=== PATIENT | female | born 1940 | race Caucasian/White ===

== ENCOUNTER 2018-03-30 10:31 | Emergency (ER) | payer MEDICARE, SELFPAY ==
--- NOTE | 2018-03-30 | DI.RAD.S_ITS ---
PROCEDURE: XR SHOULDER LT MIN 2V INDICATIONS: Fell and hurt shoulder. TECHNIQUE: 2 views of the left shoulder were acquired. COMPARISON: None. FINDINGS: Bones: Acute oblique left proximal humeral metaphysis/neck fracture with mild impaction of the fracture fragments and mild lateral angulation of the distal fracture fragment. Mild degenerative changes of the left acromioclavicular joint are noted. Soft tissues: There is a 3 mm calcific fragment superolateral to the left humeral head, which may represent a displaced fracture fragment or joint space calcification. There is soft tissue swelling of the left shoulder. IMPRESSION: Acute oblique left proximal humeral metaphysis/neck fracture. Dictated by: King Ozuna M.D. on 03/30/2018 at 12:12 Approved by: King Ozuna M.D. on 03/30/2018 at 12:15
[2018-03-30 10:35] VITALS: BP 155/88; PULSE 71; RESP 18; TEMP 36.8; O2SAT 95
--- NOTE | 2018-03-30 11:30 | ED.UPPEXIN ---
HPI - Extremity Injury (Upper) General Chief Complaint: Extremity Injury, Upper Stated Complaint: FELL DOWN, BROKE L ARM, SWELLING Time Seen by Provider: 03/30/18 11:28 Source: patient Mode of arrival: ambulatory Limitations: no limitations History of Present Illness HPI narrative: Patient is a 77-year-old female who presents with left arm swelling. She fell about a week ago she has a known fracture. He apparently her doctor sent her here for further evaluation. She has no pain no numbness no tingling she says the swelling has not gotten any worse. complaint: injury to: left Related Data Home Medications Medication Instructions Recorded Confirmed Calcium 1 tab PO DAILY 03/30/18 03/30/18 Vitamin D3 1 cap PO DAILY 03/30/18 03/30/18 antiox.mv [id number] 1 cap PO DAILY 03/30/18 03/30/18 [I-Caps] aspirin 81 mg PO DAILY 03/30/18 03/30/18 lurasidone [Latuda] 80 mg PO QPM 03/30/18 03/30/18 vitamin E 1 cap PO DAILY 03/30/18 03/30/18 Allergies Allergy/AdvReac Type Severity Reaction Status Date / Time Sulfa (Sulfonamide Allergy Unknown Unverified 06/08/17 12:07 Antibiotics) [SULFA (SULFONAMIDE ANTIBIOTICS)] Review of Systems Review of Systems GENERAL: Denies chills,fever HEENT: Denies throat pain RESPIRATORY: Denies dyspnea, cough, wheezing CARDIOVASCULAR: Denies chest pain, palpitations GASTROINTESTINAL: Denies nausea, vomiting MUSCULOSKELETAL: Known left humerus fracture SKIN: No rash, no laceration, no pruritus NEUROLOGIC: Denies weakness, dizziness, headache, numbness 8 point review of systems is negative except for those stated above and HPI PFSH Medical History Schizophrenia (Acute) Social History Smoking Status: Never smoker alcohol intake: never substance use type: does not use Social History Smoking Status: Never smoker alcohol intake: never substance use type: does not use Exam Initial Vital Signs Initial Vital Signs: Vital Signs Temperature 98.3 F 03/30/18 10:35 Pulse Rate 71 03/30/18 10:35 Respiratory Rate 18 03/30/18 10:35 Blood Pressure 155/88 H 03/30/18 10:35 Pulse Oximetry 95 03/30/18 10:35 GENERAL: Well-appearing, well-nourished and in no acute distress. CARDIOVASCULAR: peripheral pulses in tact, cap refill <2 sec RESPIRATORY: No respiratory distress, speaks in full sentences without difficulty EXTREMITIES: Normal range of motion, no clubbing or edema. Neurovascularly intact Left upper extremity: Bruising contusion noted around elbow sensation over her deltoid intact the neurovascularly intact NEUROLOGICAL: Cranial nerves II through XII grossly intact. Normal gait and speech. SKIN: Warm, dry, no petechiae, no rashes or lesions. Course Orders Ordered: ED Orders 03/30/18 11:29 XR humerus LT 2V Stat Vital Signs - 8 hr 03/30/18 10:35 03/30/18 12:34 Temperature 98.3 F Pulse Rate 71 82 Respiratory Rate 18 17 Blood Pressure 155/88 H 154/88 H Pulse Oximetry 95 96 MDM - Extremity Injury (Upper) Imaging Data Left Shoulder XR: Radiologist's impression: PROCEDURE: XR SHOULDER LT MIN 2V INDICATIONS: Fell and hurt shoulder. TECHNIQUE: 2 views of the left shoulder were acquired. COMPARISON: None. FINDINGS: Bones: Acute oblique left proximal humeral metaphysis/neck fracture with mild impaction of the fracture fragments and mild lateral angulation of the distal fracture fragment. Mild degenerative changes of the left acromioclavicular joint are noted. Soft tissues: There is a 3 mm calcific fragment superolateral to the left humeral head, which may represent a displaced fracture fragment or joint space calcification. There is soft tissue swelling of the left shoulder. IMPRESSION: Acute oblique left proximal humeral metaphysis/neck fracture. Dictated by: King Ozuna M.D. on 03/30/2018 at 12:12 left humerous XR: Radiologist's impression: PROCEDURE: XR HUMERUS LT 2V INDICATIONS: Fall, known fracture. TECHNIQUE: 3 views of the left humerus were acquired. COMPARISON: None. FINDINGS: Bones: There is an acute oblique left proximal humeral neck/metaphysis fracture with mild impaction of fracture fragments and minimal lateral angulation of the distal fracture fragment. There is a thin lucency through the coronoid process of the left proximal ulna. Mild degenerative changes of the left acromioclavicular joint. Soft tissues: There is soft tissue swelling overlying the left humeral fracture site. IMPRESSION: 1. Acute oblique left proximal humeral metaphysis/neck fracture. 2. Thin lucency through the coronoid process of the left proximal ulna likely represents a vascular channel, but consider dedicated elbow radiographs if there is clinical concern for possible left elbow fracture. Dictated by: King Ozuna M.D. on 03/30/2018 at 11:47 MDM Narrative Medical decision making narrative: Patient's sling was not properly sized it was too small. So she was given a new when by our emergency department. She has a proximal head humerus fracture recommend follow-up with Orthopedics. Discharge Plan Departure Patient Disposition: Home Clinical Impression: Fracture, humerus Discharge Date/Time: 03/30/18 12:35 Interventions: ED Discharge Assessment Last Done: 03/30/18 12:34 Instructions: DI for Humeral Fracture Activity Restrictions/Additional Instructions: *You have been diagnosed with left humeral head fracture *What to do: Distal take 4-6 weeks to heal, it generally does heal without surgery however orthopedic consultation may be helpful. Wear sling *Continue to take medications as directed Tylenol 650 mg every 4-6 hours if needed for pain *Follow up with your primary care provider in 2-3 days, call Orthopedics today to schedule follow-up appointment in 1-2 weeks *Return to ER if you should have numbness, tingling, weak or any new, worsening or concerning symptoms Prescriptions: No Action aspirin 81 mg Tablet,Delayed Release (Dr/Ec) 81 mg PO DAILY RF: 0 lurasidone [Latuda] 80 mg tablet 80 mg PO QPM RF: 0 antiox.mv [id number] [I-Caps] 280-10-2 mg Capsule 1 cap PO DAILY RF: 0 Calcium 1 tab PO DAILY RF: 0 Vitamin D3 1 cap PO DAILY RF: 0 vitamin E 1 cap PO DAILY RF: 0 Referrals: [facility] [Provider Group] Major Mercedes MD [Primary Care Provider] -
[2018-03-30 12:34] VITALS: BP 154/88; PULSE 82; RESP 17; O2SAT 96
== END 2018-03-30 12:35 | disposition home or self-care (01) ==
PROVIDERS: Emergency Provider Emergency Medicine; PCP Family Medicine
DX: S42.292A Other displaced fracture of upper end of left humerus, initial encounter for closed fracture (principal); W19.XXXA Unspecified fall, initial encounter
CPT/HCPCS: 73030; 73060; 99282; 99283

== ENCOUNTER 2019-04-11 14:10 | Inpatient (IN) | payer MEDICARE, SELFPAY ==
[2019-04-11] VITALS (13 sets, daily range): BP systolic 158–219; BP diastolic 75–113; PULSE 51–120; RESP 16–40; TEMP 36.3–36.8; O2SAT 81–98; BMI 24.5
--- NOTE | 2019-04-11 14:30 | ED_ITS ---
HPI - URI/Sore Throat <Norma Ritter PA-C - Last Filed: 04/11/19 20:47> General Chief Complaint: Upper Respiratory Symptoms Stated Complaint: trouble breathing, cough Time Seen by Provider: 04/11/19 14:15 Source: patient and family Mode of arrival: Ambulatory Limitations: no limitations History of Present Illness HPI Narrative: This 71-year-old female states that she was directed here by her clinic today due to persistent cough. She was treated with amoxicillin on the 3rd and did not get better so had called the clinic today. She states that she is not any worse today, but call the clinic because she was not getting better (she was seen there 9 days ago apparently). She states that she developed cough with phlegm production about 2 weeks ago. She states that she can hear candy piness especially at night and her notices this at well, however she does not feel short of breath. She states that she does not have chest pain. She has not noted any new swelling in her arms or legs. She has not had fever. She has runny nose which is chronic but otherwise no new sore throat, sinus symptoms, earache, or body aches. She states that she has a long history of skipped heartbeats, but denies any palpitations. She states that she was given an inhaler, which she brought with her (Gaye), has not noted a difference with this. She states she was not given any other inhalers, she denies any history of pulmonary disease and states she typically does not need to use an inhaler. She states that she was hospitalized in [place] for difficulty breathing a few years ago, and her believes that this was associated with an upper respiratory infection or flu, and he thinks at that time she did get breathing treatments. She states that she is able to sleep on her 1 pillow as usual, no recent immobility or change in activity. She denies any specific exposures. S he did travel to [place] in January but did not have symptoms for several weeks after her return. Related Data Home Medications Medication Instructions Recorded Confirmed Calcium 1 tab PO DAILY 03/30/18 04/12/19 I-Caps 1 cap PO DAILY 03/30/18 04/12/19 Vitamin D3 1 cap PO DAILY 03/30/18 04/12/19 aspirin 81 mg PO DAILY 03/30/18 04/12/19 lurasidone 80 mg PO QPM 03/30/18 04/12/19 vitamin E 1 cap PO DAILY 03/30/18 04/12/19 Previous Rx's Medication Instructions Recorded albuterol sulfate 1 inhalation INHALATION Q4-6H PRN 04/13/19 #1 each albuterol sulfate 2.5 mg INHALATION Q20M #30 each 04/13/19 nebulizer and compressor #1 each 04/13/19 prednisone 20 mg PO DAILY 3 Days #3 tab 04/13/19 Allergies Allergy/AdvReac Type Severity Reaction Status Date / Time Sulfa (Sulfonamide Allergy Unknown Verified 04/11/19 17:33 Antibiotics) [SULFA (SULFONAMIDE ANTIBIOTICS)] Review of Systems <Norma Ritter PA-C - Last Filed: 04/11/19 20:47> Review of Systems ROS Unobtainable: All systems reviewed & are unremarkable except as noted in HPI and below Patient History <Norma Ritter PA-C - Last Filed: 04/11/19 20:47> Medical History Age-related osteoporosis without current pathological fracture (Chronic 06/16/16) Schizophrenia (Acute) Surgical History Status post mastectomy (Chronic) Status post tonsillectomy (Chronic) Social History (Updated 03/30/18 @ 11:34 by Cinthia Yun DO) household members: spouse Smoking Status: Never smoker alcohol intake: never substance use type: does not use Smoking Status: Never smoker Exam <Norma Ritter PA-C - Last Filed: 04/11/19 20:47> Narrative Exam Narrative: GENERAL APPEARANCE: Patient sitting comfortably, in no distress. HEAD: No sinus TTP. EYES: PERRL, EOMI. EARS: Normal auditory canals, TMS intact with normal light reflexes. ORAL CAVITY: Normal oropharynx. THROAT: No erythema, PND noted NECK/THYROID: Neck supple, no cervical lymphadenopathy. LUNGS: Coarse breath sounds with some generalized faint wheeze, no rhonchi, no cough on exam. HEART: Rate and rhythm irregular without murmur EXTREMITIES: Varicosities noted, no cyanosis, no edema, no calf tenderness Initial Vital Signs Initial Vital Signs: Vital Signs Temperature 98.3 F 04/11/19 14:10 Pulse Rate 107 H 04/11/19 14:10 Respiratory Rate 40 H 04/11/19 14:10 Blood Pressure 219/108 H 04/11/19 14:10 Pulse Oximetry 93 04/11/19 14:10 <Don Avila DO - Last Filed: 04/17/19 07:12> Initial Vital Signs Initial Vital Signs: Vital Signs Temperature 98.3 F 04/11/19 14:10 Pulse Rate 107 H 04/11/19 14:10 Respiratory Rate 40 H 04/11/19 14:10 Blood Pressure 219/108 H 04/11/19 14:10 Pulse Oximetry 93 04/11/19 14:10 Course <Norma Ritter PA-C - Last Filed: 04/11/19 20:47> Course Additional Information: Patient denies andrew dyspnea, does indicate worse cough at night. No orthopnea. On ambulation trial here she is hypoxic with O2 sats dropping into the mid to upper 80s, with concern for atypical presenation of CHF. She is intermittently tachycardic which may be consistent with her history of PVCs. I spoke with Dr. Bess, transportation lead hospitalist, who is agreeable with plan for admission, further w/u and diuresis. Orders Ordered: Discontinued Medications Acetaminophen (Tylenol) 650 mg PO Q6HR PRN PRN Reason: Fever/Mild Pain (1-3) Albuterol (Proventil 0.5% Neb Solution) 10 mg 0.15 mg/kg (10 mg) INH NOW ONE Stop: 04/11/19 16:41 Last Admin: 04/11/19 16:53 Dose: 10 mg Documented by: RSELFRIDGE Albuterol/Ipratropium (Duoneb) 3 ml INH NOW ONE Stop: 04/11/19 14:28 Last Admin: 04/11/19 14:39 Dose: 3 ml Documented by: RSELFRIDAKBAR Albuterol/Ipratropium (Duoneb) 3 ml INH RTQ4HR RANJIT Last Admin: 04/12/19 11:40 Dose: 3 ml Documented by: Admin: 04/12/19 07:35 Dose: 3 ml Documented by: Admin: 04/12/19 03:30 Dose: 3 ml Documented by: Admin: 04/11/19 23:19 Dose: 3 ml Documented by: NANCI Albuterol/Ipratropium (Duoneb) 3 ml INH RTBID [facility] Last Admin: 04/13/19 09:38 Dose: 3 ml Documented by: Admin: 04/12/19 21:49 Dose: Not Given Documented by: Admin: 04/12/19 20:24 Dose: 3 ml Documented by: NANCI Aspirin (Aspirin Ec) 81 mg PO DAILY [facility] Last Admin: 04/13/19 09:38 Dose: 81 mg Documented by: Admin: 04/12/19 09:59 Dose: 81 mg Documented by: AMRITA Enoxaparin Sodium (Lovenox) 40 mg SUBCUT DAILY [facility] Last Admin: 04/13/19 09:38 Dose: 40 mg Documented by: Admin: 04/12/19 09:59 Dose: 40 mg Documented by: AMRITA Furosemide (Lasix) 40 mg IV NOW ONE Stop: 04/11/19 17:25 Last Admin: 04/11/19 17:42 Dose: 40 mg Documented by: MAULIK Lurasidone 80 Mg 80 mg PO 1700 [facility] Last Admin: 04/12/19 17:43 Dose: 80 mg Documented by: CARLOS Ondansetron HCl (Zofran) 4 mg IV Q8HR PRN PRN Reason: Nausea And Vomiting Vital Signs Vital signs: Vital Signs - 8 hr 04/11/19 14:10 04/11/19 15:23 04/11/19 16:00 Temperature 98.3 F Pulse Rate 107 H 104 H 51 L Respiratory Rate 40 H 18 24 Blood Pressure 219/108 H Blood Pressure [Left Arm] 186/109 H 193/85 H Pulse Oximetry 93 94 96 04/11/19 16:01 04/11/19 16:32 04/11/19 16:47 Temperature Pulse Rate 114 H 120 H Respiratory Rate 30 H Blood Pressure Blood Pressure [Left Arm] 184/113 H Pulse Oximetry 96 95 86 L 04/11/19 16:53 04/11/19 17:00 04/11/19 17:30 Temperature Pulse Rate 100 H 71 Respiratory Rate 24 27 H 25 H Blood Pressure Blood Pressure [Left Arm] 197/81 H 192/75 H Pulse Oximetry 96 98 95 <Don Avila, DO - Last Filed: 04/17/19 07:12> Orders Ordered: Discontinued Medications Acetaminophen (Tylenol) 650 mg PO Q6HR PRN PRN Reason: Fever/Mild Pain (1-3) Albuterol (Proventil 0.5% Neb Solution) 10 mg 0.15 mg/kg (10 mg) INH NOW ONE Stop: 04/11/19 16:41 Last Admin: 04/11/19 16:53 Dose: 10 mg Documented by: NATHANIEL Albuterol/Ipratropium (Duoneb) 3 ml INH NOW ONE Stop: 04/11/19 14:28 Last Admin: 04/11/19 14:39 Dose: 3 ml Documented by: NATHANIEL Albuterol/Ipratropium (Duoneb) 3 ml INH RTQ4HR [facility] Last Admin: 04/12/19 11:40 Dose: 3 ml Documented by: Admin: 04/12/19 07:35 Dose: 3 ml Documented by: Admin: 04/12/19 03:30 Dose: 3 ml Documented by: Admin: 04/11/19 23:19 Dose: 3 ml Documented by: NANCI Albuterol/Ipratropium (Duoneb) 3 ml INH RTBID [facility] Last Admin: 04/13/19 09:38 Dose: 3 ml Documented by: Admin: 04/12/19 21:49 Dose: Not Given Documented by: Admin: 04/12/19 20:24 Dose: 3 ml Documented by: NANCI Aspirin (Aspirin Ec) 81 mg PO DAILY [facility] Last Admin: 04/13/19 09:38 Dose: 81 mg Documented by: Admin: 04/12/19 09:59 Dose: 81 mg Documented by: AMRITA Enoxaparin Sodium (Lovenox) 40 mg SUBCUT DAILY [facility] Last Admin: 04/13/19 09:38 Dose: 40 mg Documented by: Admin: 04/12/19 09:59 Dose: 40 mg Documented by: AMRITA Furosemide (Lasix) 40 mg IV NOW ONE Stop: 04/11/19 17:25 Last Admin: 04/11/19 17:42 Dose: 40 mg Documented by: MAULIK Lurasidone 80 Mg 80 mg PO 1700 RANJIT Last Admin: 04/12/19 17:43 Dose: 80 mg Documented by: CWOOD Ondansetron HCl (Zofran) 4 mg IV Q8HR PRN PRN Reason: Nausea And Vomiting Vital Signs Vital signs: Vital Signs - 8 hr 04/11/19 14:10 04/11/19 15:23 04/11/19 16:00 Temperature 98.3 F Pulse Rate 107 H 104 H 51 L Respiratory Rate 40 H 18 24 Blood Pressure 219/108 H Blood Pressure [Left Arm] 186/109 H 193/85 H Pulse Oximetry 93 94 96 04/11/19 16:01 04/11/19 16:32 04/11/19 16:47 Temperature Pulse Rate 114 H 120 H Respiratory Rate 30 H Blood Pressure Blood Pressure [Left Arm] 184/113 H Pulse Oximetry 96 95 86 L 04/11/19 16:53 04/11/19 17:00 04/11/19 17:30 Temperature Pulse Rate 100 H 71 Respiratory Rate 24 27 H 25 H Blood Pressure Blood Pressure [Left Arm] 197/81 H 192/75 H Pulse Oximetry 96 98 95 MDM - URI/Sore Throat <Norma Ritter PA-C - Last Filed: 04/11/19 20:47> Lab Data Attestation: I reviewed the patient's lab results. Result diagrams: 04/12/19 06:36 04/12/19 06:36 Labs: Lab Results 04/11/19 04/11/19 04/11/19 Range/Units 14:44 14:44 14:44 WBC 5.5 (4.5-11.0) X10^3/uL RBC 4.35 (4.0-5.2) X10^6/uL Hgb 14.1 (12.0-16.0) g/dL Hct 42.0 (36-46) % MCV 96.6 (80-100) fL MCH 32.5 (26-34) PG MCHC 33.6 (30-36) % RDW 12.3 (11.6-14.8) % Plt Count 254 (150-400) X10^3/uL Neut % (Auto) 76.3 H (50-75) % Lymph % (Auto) 11.5 L (25-40) % Frederick % (Auto) 10.5 (3-14) % Eos % (Auto) 1.3 L (2-4) % Baso % (Auto) 0.4 (0-2) % Neut # (Auto) 4200 (6841-2083) /uL Lymph # (Auto) 600 L (3682-2722) /uL Frederick # (Auto) 600 (0-900) /uL Eos # (Auto) 100 (0-450) /uL Baso # (Auto) 0 (0-100) /uL D-Dimer (<230) ng/mL Sodium 135 L (137-145) mmol/L Potassium 4.2 (3.4-5.1) mmol/L Chloride 100 (98-107) mmol/L Carbon Dioxide 27 (22-32) mmol/L BUN 15 (7-17) mg/dL Creatinine 0.80 (0.52-1.04) mg/dL Estimated GFR > 60.0 (>60) mL/min BUN/Creatinine Ratio 18.8 (6-22) Glucose 112 H (80-110) mg/dL Calcium 10.1 (8.4-10.2) mg/dL Total Bilirubin 0.7 (0.2-1.3) mg/dL AST 33 (14-36) IU/L ALT 23 (<35) IU/L Alkaline Phosphatase 68 (38-126) U/L Troponin I (0.01-0.034) ng/mL NT-Pro-B Natriuret Pep 2490 H (<450) pg/mL Total Protein 7.2 (6.3-8.2) g/dL Albumin 3.9 (3.5-5.0) g/dL Globulin 3.3 (1.7-4.1) g/dL Albumin/Globulin Ratio 1.2 (1.0-2.8) Chlamy pneumoniae PCR (Not Detect) Adenovirus (PCR) (Not Detect) B.parapertussis DNA PCR (Not Detect) Coronavirus OC43 (PCR) (Not Detect) Coronavirus HKU1 (PCR) (Not Detect) Coronavirus 229E (PCR) (Not Detect) Coronavirus NL63 (PCR) (Not Detect) Human Metapneumovir PCR (Not Detect) Influenza Type A (PCR) (Not Detect) Influenza Type B (PCR) (Not Detect) M. pneumoniae (PCR) (Not Detect) Parainfluenza 1 (PCR) (Not Detect) Parainfluenza 2 (PCR) (Not Detect) Parainfluenza 3 (PCR) (Not Detect) Parainfluenza 4 (PCR) (Not Detect) RSV (PCR) (Not Detect) Entero/Rhino (PCR) (Not Detect) 04/11/19 04/11/19 04/11/19 Range/Units 14:44 14:44 17:27 WBC (4.5-11.0) X10^3/uL RBC (4.0-5.2) X10^6/uL Hgb (12.0-16.0) g/dL Hct (36-46) % MCV (80-100) fL MCH (26-34) PG MCHC (30-36) % RDW (11.6-14.8) % Plt Count (150-400) X10^3/uL Neut % (Auto) (50-75) % Lymph % (Auto) (25-40) % Frederick % (Auto) (3-14) % Eos % (Auto) (2-4) % Baso % (Auto) (0-2) % Neut # (Auto) (8624-8121) /uL Lymph # (Auto) (8533-4610) /uL Frederick # (Auto) (0-900) /uL Eos # (Auto) (0-450) /uL Baso # (Auto) (0-100) /uL D-Dimer 286 H (<230) ng/mL Sodium (137-145) mmol/L Potassium (3.4-5.1) mmol/L Chloride (98-107) mmol/L Carbon Dioxide (22-32) mmol/L BUN (7-17) mg/dL Creatinine (0.52-1.04) mg/dL Estimated GFR (>60) mL/min BUN/Creatinine Ratio (6-22) Glucose (80-110) mg/dL Calcium (8.4-10.2) mg/dL Total Bilirubin (0.2-1.3) mg/dL AST (14-36) IU/L ALT (<35) IU/L Alkaline Phosphatase (38-126) U/L Troponin I 0.045 H (0.01-0.034) ng/mL NT-Pro-B Natriuret Pep (<450) pg/mL Total Protein (6.3-8.2) g/dL Albumin (3.5-5.0) g/dL Globulin (1.7-4.1) g/dL Albumin/Globulin Ratio (1.0-2.8) Chlamy pneumoniae PCR Not detected (Not Detect) Adenovirus (PCR) Not detected (Not Detect) B.parapertussis DNA PCR Not detected (Not Detect) Coronavirus OC43 (PCR) Not detected (Not Detect) Coronavirus HKU1 (PCR) Not detected (Not Detect) Coronavirus 229E (PCR) Not detected (Not Detect) Coronavirus NL63 (PCR) Not detected (Not Detect) Human Metapneumovir PCR Not detected (Not Detect) Influenza Type A (PCR) Not detected (Not Detect) Influenza Type B (PCR) Not detected (Not Detect) M. pneumoniae (PCR) Not detected (Not Detect) Parainfluenza 1 (PCR) Not detected (Not Detect) Parainfluenza 2 (PCR) Not detected (Not Detect) Parainfluenza 3 (PCR) Not detected (Not Detect) Parainfluenza 4 (PCR) Not detected (Not Detect) RSV (PCR) Detected H (Not Detect) Entero/Rhino (PCR) Not detected (Not Detect) Imaging Data Chest x-ray: Radiologist's Impression: 14 Norma Ritter PA-C Find Patient Imaging - Millie Romano 79 F 1940 ACTIVITY DATE EXAM STATUS AUTHOR 04/11/19 14:[address] [address] XRay Report Signed Patient: Millie Romano LMR#: [id number] : 1940cct:[id number] Age/Sex: 79 / FDate of Service: 04/11/19 Loc: ED Accession Number: [id number] Procedure: XR chest 2V Ordering Provider: Norma Ritter P.A-C PROCEDURE: XR CHEST 2V INDICATIONS: persistent cough, wheeze TECHNIQUE: 2 views of the chest were acquired. COMPARISON: [facility], CHEST 1 VIEW, 08/15/2015, 19:31. FINDINGS: Surgical changes and devices: Surgical clips are noted in the region of right breast. Lungs and pleura: Chronic emphysematous changes are seen. No focal infiltrate. No pleural effusions or pneumothorax. Mediastinum: Mediastinal contours are normal. Heart size is normal. Bones and chest wall: No suspicious bony abnormalities. Soft tissues appear unremarkable. IMPRESSION: No acute cardiopulmonary pathology. COPD. Dictated by: Dudley Hoyt M.D. on 04/11/2019 at 15:27 Approved by: Dudley Hoyt M.D. on 04/11/2019 at 15:28 ECG Data Attestation: I personally reviewed and interpreted this ECG as follows: (Sinus rhythm, rate 100, frequent PVCs, normal axis, no significant change from 2016) Prior ECG tracings: available for review <Don Avila DO - Last Filed: 04/17/19 07:12> Lab Data Labs: Lab Results 04/11/19 04/11/19 04/11/19 Range/Units 14:44 14:44 14:44 WBC 5.5 (4.5-11.0) X10^3/uL RBC 4.35 (4.0-5.2) X10^6/uL Hgb 14.1 (12.0-16.0) g/dL Hct 42.0 (36-46) % MCV 96.6 (80-100) fL MCH 32.5 (26-34) PG MCHC 33.6 (30-36) % RDW 12.3 (11.6-14.8) % Plt Count 254 (150-400) X10^3/uL Neut % (Auto) 76.3 H (50-75) % Lymph % (Auto) 11.5 L (25-40) % Frederick % (Auto) 10.5 (3-14) % Eos % (Auto) 1.3 L (2-4) % Baso % (Auto) 0.4 (0-2) % Neut # (Auto) 4200 (5039-2359) /uL Lymph # (Auto) 600 L (4938-5707) /uL Frederick # (Auto) 600 (0-900) /uL Eos # (Auto) 100 (0-450) /uL Baso # (Auto) 0 (0-100) /uL D-Dimer (<230) ng/mL Sodium 135 L (137-145) mmol/L Potassium 4.2 (3.4-5.1) mmol/L Chloride 100 (98-107) mmol/L Carbon Dioxide 27 (22-32) mmol/L BUN 15 (7-17) mg/dL Creatinine 0.80 (0.52-1.04) mg/dL Estimated GFR > 60.0 (>60) mL/min BUN/Creatinine Ratio 18.8 (6-22) Glucose 112 H (80-110) mg/dL Calcium 10.1 (8.4-10.2) mg/dL Total Bilirubin 0.7 (0.2-1.3) mg/dL AST 33 (14-36) IU/L ALT 23 (<35) IU/L Alkaline Phosphatase 68 (38-126) U/L Troponin I (0.01-0.034) ng/mL NT-Pro-B Natriuret Pep 2490 H (<450) pg/mL Total Protein 7.2 (6.3-8.2) g/dL Albumin 3.9 (3.5-5.0) g/dL Globulin 3.3 (1.7-4.1) g/dL Albumin/Globulin Ratio 1.2 (1.0-2.8) Chlamy pneumoniae PCR (Not Detect) Adenovirus (PCR) (Not Detect) B.parapertussis DNA PCR (Not Detect) Coronavirus OC43 (PCR) (Not Detect) Coronavirus HKU1 (PCR) (Not Detect) Coronavirus 229E (PCR) (Not Detect) Coronavirus NL63 (PCR) (Not Detect) Human Metapneumovir PCR (Not Detect) Influenza Type A (PCR) (Not Detect) Influenza Type B (PCR) (Not Detect) M. pneumoniae (PCR) (Not Detect) Parainfluenza 1 (PCR) (Not Detect) Parainfluenza 2 (PCR) (Not Detect) Parainfluenza 3 (PCR) (Not Detect) Parainfluenza 4 (PCR) (Not Detect) RSV (PCR) (Not Detect) Entero/Rhino (PCR) (Not Detect) 04/11/19 04/11/19 04/11/19 Range/Units 14:44 14:44 17:27 WBC (4.5-11.0) X10^3/uL RBC (4.0-5.2) X10^6/uL Hgb (12.0-16.0) g/dL Hct (36-46) % MCV (80-100) fL MCH (26-34) PG MCHC (30-36) % RDW (11.6-14.8) % Plt Count (150-400) X10^3/uL Neut % (Auto) (50-75) % Lymph % (Auto) (25-40) % Frederick % (Auto) (3-14) % Eos % (Auto) (2-4) % Baso % (Auto) (0-2) % Neut # (Auto) (9035-7232) /uL Lymph # (Auto) (7919-6275) /uL Frederick # (Auto) (0-900) /uL Eos # (Auto) (0-450) /uL Baso # (Auto) (0-100) /uL D-Dimer 286 H (<230) ng/mL Sodium (137-145) mmol/L Potassium (3.4-5.1) mmol/L Chloride (98-107) mmol/L Carbon Dioxide (22-32) mmol/L BUN (7-17) mg/dL Creatinine (0.52-1.04) mg/dL Estimated GFR (>60) mL/min BUN/Creatinine Ratio (6-22) Glucose (80-110) mg/dL Calcium (8.4-10.2) mg/dL Total Bilirubin (0.2-1.3) mg/dL AST (14-36) IU/L ALT (<35) IU/L Alkaline Phosphatase (38-126) U/L Troponin I 0.045 H (0.01-0.034) ng/mL NT-Pro-B Natriuret Pep (<450) pg/mL Total Protein (6.3-8.2) g/dL Albumin (3.5-5.0) g/dL Globulin (1.7-4.1) g/dL Albumin/Globulin Ratio (1.0-2.8) Chlamy pneumoniae PCR Not detected (Not Detect) Adenovirus (PCR) Not detected (Not Detect) B.parapertussis DNA PCR Not detected (Not Detect) Coronavirus OC43 (PCR) Not detected (Not Detect) Coronavirus HKU1 (PCR) Not detected (Not Detect) Coronavirus 229E (PCR) Not detected (Not Detect) Coronavirus NL63 (PCR) Not detected (Not Detect) Human Metapneumovir PCR Not detected (Not Detect) Influenza Type A (PCR) Not detected (Not Detect) Influenza Type B (PCR) Not detected (Not Detect) M. pneumoniae (PCR) Not detected (Not Detect) Parainfluenza 1 (PCR) Not detected (Not Detect) Parainfluenza 2 (PCR) Not detected (Not Detect) Parainfluenza 3 (PCR) Not detected (Not Detect) Parainfluenza 4 (PCR) Not detected (Not Detect) RSV (PCR) Detected H (Not Detect) Entero/Rhino (PCR) Not detected (Not Detect) Discharge Plan Departure Patient Disposition: Admitted As Inpatient Clinical Impression: CHF (congestive heart failure) Qualifiers: Heart failure type: unspecified Heart failure chronicity: acute Qualified Code(s): I50.9 - Heart failure, unspecified Discharge Date/Time: 04/11/19 17:55 Admit Date/Time: 04/11/19 17:31 Admit Provider: Raphael Bess <Don Avila, DO - Last Filed: 04/17/19 07:12> Sign Out Provider Sign Out Attestation: Dr Avila Co-Sign Statement: I was available for consultation during this patient's emergency department visit. This chart is signed by myself for administrative purposes only. I did not have direct contact with this patient during this visit. They were seen independently by the APC.
--- NOTE | 2019-04-11 14:34 | PC.NURSE ---
reports, coughing for 2 weeks, finished antibiotic today and not better, with congested coughing. able to speak 2-3 words, skin warm dry pink.
[2019-04-11] MEDS: ALBUTEROL/IPRATROPIUM 3 ML AMPUL INH ×2 (14:39→23:19)
[2019-04-11 14:51] LABS: Add Manual Diff / Slide Review NO; Basophils Absolute Auto 0 /uL (0-100); Basophils Percent Auto 0.4 % (0-2); Eosinophils Absolute Auto 100 /uL (0-450); Eosinophils Percent Auto 1.3 % (2-4); Hemoglobin 14.1 g/dL (12.0-16.0); Lymphocytes Absolute Auto 600 /uL (1100-4500); Lymphocytes Percent Auto 11.5 % (25-40); Mean Corpuscular HGB Conc 33.6 % (30-36); Mean Corpuscular Hemoglobin 32.5 PG (26-34); Mean Corpuscular Volume 96.6 fL (80-100); Monocytes Absolute Auto 600 /uL (0-900); Monocytes Percent Auto 10.5 % (3-14); Neutrophils Absolute Auto 4200 /uL (1500-7000); Neutrophils Percent Auto 76.3 % (50-75); Platelet Count 254 X10^3/uL (150-400); Red Blood Cell Count 4.35 X10^6/uL (4.0-5.2); Red Cell Distribution Width 12.3 % (11.6-14.8); White Blood Cell Count 5.5 X10^3/uL (4.5-11.0)
[2019-04-11 15:08] LABS: Alanine Aminotransferase 23 IU/L (<35); Albumin 3.9 g/dL (3.5-5.0); Albumin Globulin Ratio 1.2 (1.0-2.8); Alkaline Phosphatase 68 U/L (38-126); Aspartate Aminotransferase 33 IU/L (14-36); BUN Creatinine Ratio 18.8 (6-22); Bilirubin Total 0.7 mg/dL (0.2-1.3); Blood Urea Nitrogen 15 mg/dL (7-17); Calcium 10.1 mg/dL (8.4-10.2); Carbon Dioxide 27 mmol/L (22-32); Chloride 100 mmol/L (98-107); Estimated Glomerular Filt Rate > 60.0 mL/min (>60); Globulin 3.3 g/dL (1.7-4.1); Glucose 112 mg/dL (80-110); HEMOLYSIS 15 (0-50); Potassium 4.2 mmol/L (3.4-5.1); Sodium 135 mmol/L (137-145); Total Protein 7.2 g/dL (6.3-8.2)
[2019-04-11 15:26] LABS: NT-proBNP (BNP-Adult 18+) 2490 pg/mL (<450)
[2019-04-11 16:47] LABS: D Dimer 286 ng/mL (<230)
--- NOTE | 2019-04-11 16:48 | PC.NURSE ---
with minimal assist by oziel torres
[2019-04-11] MEDS: ALBUTEROL 0.5% CONTINUOUS NEB 10 MG INH (16:53)
[2019-04-11 17:06] LABS: Troponin I 0.045 ng/mL (0.01-0.034)
[2019-04-11] MEDS: FUROSEMIDE 40 MG/4 ML VIAL IV (17:42)
[2019-04-11 18:15] LABS: HEMOLYSIS < 15 (0-50); Potassium 3.6 mmol/L (3.4-5.1)
[2019-04-11 19:01] LABS: Adenovirus Not Detected (Not Detect); Bordetella pertussis Not Detected (Not Detect); Chlamydophila pneumoniae Not Detected (Not Detect); Coronavirus 229E Not Detected (Not Detect); Coronavirus HKU1 Not Detected (Not Detect); Coronavirus NL 63 Not Detected (Not Detect); Coronavirus OC43 Not Detected (Not Detect); Human Metapneumovirus Not Detected (Not Detect); Human Rhinovirus/Enterovirus Not Detected (Not Detect); Influenza A Not Detected (Not Detect); Influenza B Not Detected (Not Detect); Mycoplasma pneumoniae Not Detected (Not Detect); Parainfluenza Virus 1 Not Detected (Not Detect); Parainfluenza Virus 2 Not Detected (Not Detect); Parainfluenza Virus 3 Not Detected (Not Detect); Parainfluenza Virus 4 Not Detected (Not Detect); Respiratory Syncytial Virus Detected (Not Detect)
[2019-04-11 21:47] LABS: HEMOLYSIS < 15 (0-50); Magnesium 1.9 mg/dL (1.6-2.3); Potassium 3.6 mmol/L (3.4-5.1)
[2019-04-11 22:00] LABS: Troponin I 0.053 ng/mL (0.01-0.034)
--- NOTE | 2019-04-11 22:40 | PC.NURSE ---
Pt A&OX4. 93% 2.5L. pt desat to 89-90% on 2L. LS: anterior expiratory wheezes. denied any chest pain or dizziness. pt SOB w/exertion. reports dry intermittent cough. denied any nausea. denied pain. SBA to the BR. oriented pt to the room. bed alarm on. call light in reach.
--- NOTE | 2019-04-11 22:50 | PM.HP.1 ---
History of Present Illness History of Present Illness Date Patient Seen: 04/11/19 Time Patient Seen: 21:50 Chief complaint: trouble breathing, cough Narrative: The patient is a 79-year-old female with PMH of schizophrenia, history of breast cancer (s/p mastectomy), Patient presented to the ED upon recommendation from her primary care clinic out of concern for persistent cough over the past 3-4 weeks. Notes intermittent presence of clear phlegm without worsening purulence. Associated symptoms include exertional dyspnea and orthopnea. Endorses intermittent mild swelling in the ankles. On 04/02/2019 patient was prescribed a 10 day course of oral amoxicillin 875, which she completed without improvement in underlying symptoms. Patient denies chest pain, palpitations, dizziness, lightheadedness, and syncopal events. She does not endorse presence of abdominal pain or GI distress. Does not verbalize presence of fatigue, malaise or myalgia. Patient is known to have traveled to [place] in January of 2019. She is also known to have had breast cancer with prior history of mastectomy. No prior known history of heart disease or heart failure. Patient History Medical History Age-related osteoporosis without current pathological fracture (Chronic 06/16/16) Schizophrenia (Acute) Surgical History Status post mastectomy (Chronic) Status post tonsillectomy (Chronic) Family & Social History Social History: household members spouse Prior Living Arrangements House Safety & Behavioral: Feels Safe in Current Yes Environment Been Physically Hurt or No Threatened By a Person Suicidal Ideation Description None Suicide Plan Description No Plan Tobacco & Substance use: Smoking Status Never smoker alcohol intake never Meds Home Medications and Allergies Home Medications Medication Instructions Recorded Confirmed Type Calcium 1 tab PO DAILY 03/30/18 03/30/18 History Vitamin D3 1 cap PO DAILY 03/30/18 03/30/18 History antiox.mv no.[id number] 1 cap PO DAILY 03/30/18 03/30/18 History [I-Caps] aspirin 81 mg PO DAILY 03/30/18 03/30/18 History lurasidone [Latuda] 80 mg PO QPM 03/30/18 03/30/18 History vitamin E 1 cap PO DAILY 03/30/18 03/30/18 History Allergies Allergy/AdvReac Type Severity Reaction Status Date / Time Sulfa (Sulfonamide Allergy Unknown Verified 04/11/19 17:33 Antibiotics) [SULFA (SULFONAMIDE ANTIBIOTICS)] Review of Systems Review of Systems ROS: Yes All systems reviewed with the patient and are negative except as otherwise documented Exam Vital Signs (past 8 hours): - 04/11/19 15:23 04/11/19 16:00 04/11/19 16:01 Temperature Pulse Rate 104 H 51 L Respiratory Rate 18 24 Blood Pressure Blood Pressure [Left Arm] 186/109 H 193/85 H Pulse Oximetry 94 96 96 04/11/19 16:32 04/11/19 16:47 04/11/19 16:53 Temperature Pulse Rate 114 H 120 H Respiratory Rate 30 H 24 Blood Pressure Blood Pressure [Left Arm] 184/113 H Pulse Oximetry 95 86 L 96 04/11/19 17:00 04/11/19 17:30 04/11/19 18:41 Temperature Pulse Rate 100 H 71 101 H Respiratory Rate 27 H 25 H 35 H Blood Pressure Blood Pressure [Left Arm] 197/81 H 192/75 H 158/99 H Pulse Oximetry 98 95 92 04/11/19 19:04 Temperature 97.3 F L Pulse Rate 116 H Respiratory Rate 16 Blood Pressure 160/94 H Blood Pressure [Left Arm] Pulse Oximetry 94 Oxygen Delivery Method Nasal Cannula Oxygen Flow Rate 2 Narrative Exam Narrative: Constitutional: NAD Neurologic: AOx3, no focal neurological deficits Head: NC, AT Eyes: PERRL, EOMI, Ears: external ears normal, no otorrhea Nose: external nose normal, no rhinorrhea or epistaxis Throat: MMM, oropharynx w/o exudate Neck: no masses, lymphadenopathy, or JVD Chest / Respiratory: equal chest rise, unlabored respiratory effort, no tachypnea CTAB no rrw Heart / CV: S1S2, no murmur Abdomen / GI: round, NT, ND, + BS, no organomegaly : no suprapubic tenderness, no CVA Peripheral / Vascular: warm to touch, DP and PT pulses palpable, no edema Musc: full ROM of upper and lower extremities, adequate muscle tone and bulk Skin: no ecchymosis or suspicious lesions / ulcers Objective Labs Result Diagrams: 04/11/19 14:44 04/11/19 21:26 Labs: Laboratory Results - last 24 hr 04/11/19 04/11/19 04/11/19 14:44 14:44 14:44 WBC 5.5 RBC 4.35 Hgb 14.1 Hct 42.0 MCV 96.6 MCH 32.5 MCHC 33.6 RDW 12.3 Plt Count 254 Neut % (Auto) 76.3 H Lymph % (Auto) 11.5 L [place] % (Auto) 10.5 Eos % (Auto) 1.3 L Baso % (Auto) 0.4 Neut # (Auto) 4200 Lymph # (Auto) 600 L [place] # (Auto) 600 Eos # (Auto) 100 Baso # (Auto) 0 D-Dimer Sodium 135 L Potassium 4.2 Chloride 100 Carbon Dioxide 27 BUN 15 Creatinine 0.80 Estimated GFR > 60.0 BUN/Creatinine Ratio 18.8 Glucose 112 H Calcium 10.1 Magnesium Total Bilirubin 0.7 AST 33 ALT 23 Alkaline Phosphatase 68 Troponin I NT-Pro-B Natriuret Pep 2490 H Total Protein 7.2 Albumin 3.9 Globulin 3.3 Albumin/Globulin Ratio 1.2 Chlamy pneumoniae PCR Adenovirus (PCR) B.parapertussis DNA PCR Coronavirus OC43 (PCR) Coronavirus HKU1 (PCR) Coronavirus 229E (PCR) Coronavirus NL63 (PCR) Human Metapneumovir PCR Influenza Type A (PCR) Influenza Type B (PCR) M. pneumoniae (PCR) Parainfluenza 1 (PCR) Parainfluenza 2 (PCR) Parainfluenza 3 (PCR) Parainfluenza 4 (PCR) RSV (PCR) Entero/Rhino (PCR) 04/11/19 04/11/19 04/11/19 14:44 14:44 17:27 WBC RBC Hgb Hct MCV MCH MCHC RDW Plt Count Neut % (Auto) Lymph % (Auto) [place] % (Auto) Eos % (Auto) Baso % (Auto) Neut # (Auto) Lymph # (Auto) [place] # (Auto) Eos # (Auto) Baso # (Auto) D-Dimer 286 H Sodium Potassium Chloride Carbon Dioxide BUN Creatinine Estimated GFR BUN/Creatinine Ratio Glucose Calcium Magnesium Total Bilirubin AST ALT Alkaline Phosphatase Troponin I 0.045 H NT-Pro-B Natriuret Pep Total Protein Albumin Globulin Albumin/Globulin Ratio Chlamy pneumoniae PCR Not detected Adenovirus (PCR) Not detected B.parapertussis DNA PCR Not detected Coronavirus OC43 (PCR) Not detected Coronavirus HKU1 (PCR) Not detected Coronavirus 229E (PCR) Not detected Coronavirus NL63 (PCR) Not detected Human Metapneumovir PCR Not detected Influenza Type A (PCR) Not detected Influenza Type B (PCR) Not detected M. pneumoniae (PCR) Not detected Parainfluenza 1 (PCR) Not detected Parainfluenza 2 (PCR) Not detected Parainfluenza 3 (PCR) Not detected Parainfluenza 4 (PCR) Not detected RSV (PCR) Detected H Entero/Rhino (PCR) Not detected 04/11/19 04/11/19 17:50 21:26 WBC RBC Hgb Hct MCV MCH MCHC RDW Plt Count Neut % (Auto) Lymph % (Auto) [place] % (Auto) Eos % (Auto) Baso % (Auto) Neut # (Auto) Lymph # (Auto) [place] # (Auto) Eos # (Auto) Baso # (Auto) D-Dimer Sodium Potassium 3.6 3.6 Chloride Carbon Dioxide BUN Creatinine Estimated GFR BUN/Creatinine Ratio Glucose Calcium Magnesium 1.9 Total Bilirubin AST ALT Alkaline Phosphatase Troponin I 0.053 H NT-Pro-B Natriuret Pep Total Protein Albumin Globulin Albumin/Globulin Ratio Chlamy pneumoniae PCR Adenovirus (PCR) B.parapertussis DNA PCR Coronavirus OC43 (PCR) Coronavirus HKU1 (PCR) Coronavirus 229E (PCR) Coronavirus NL63 (PCR) Human Metapneumovir PCR Influenza Type A (PCR) Influenza Type B (PCR) M. pneumoniae (PCR) Parainfluenza 1 (PCR) Parainfluenza 2 (PCR) Parainfluenza 3 (PCR) Parainfluenza 4 (PCR) RSV (PCR) Entero/Rhino (PCR) Assessment & Plan Assessment & Plan narrative: Patient is being admitted under observation status for an acute respiratory failure with hypoxia Acute respiratory failure with hypoxia, present on admission, active - Cause is not entirely clear - Suspected to be in the setting of viral illness, RSV and decompensated acute heart failure vs acute COPD exacerbation - ABG w/ metabolic alkalosis - CXR chronic emphysematous changes / COPD - Consider CTA of chest to r/o PE (h/o prior malignancy, recent travel and recent fall) - RT / RATE - Continuous pulse ox RSV, acute, present on admission, active - RSV positive on viral panel - Isolation precautions - Supportive care Acute heart failure (type unknown), present on admission, active - NTpro-BNP 2490 (no prior BNP for comparison). No overt hypervolemia on exam. - Received 40 mg IV Lasix in ED (1741), will continue daily and monitor volume status closely - Strict I&Os. Daily weight. - Echo in am - Monitor renal function, metabolic abnormalities, and electrolytes while diuresing COPD with acute exacerbation, present on admission, active - No reported history of COPD or smoking. CXR is indicative of chronic emphysematous changes / COPD. No focal infiltrate or pleural effusion. - Consult RT / RATE - Duo-neb Tx Q4H - May need to consider oral steroids Acute NJ type 2, acute, present on admission, active - Trop 0.045, repeat in 6 hours and w/ am lab - EKG revealed sinus tachycardia, V rate 100, with supraventricular premature complexes (similar to EKG from 07/2015) No pathological Q-waves - No chest pain, + dyspnea Schizophrenia, chronic condition, present on admission, stable - On Latuda 80 mg QHS, this is a non formulary medication for the hospital Resume, if patient is able to use her own supply Code status discussed. Patient wishes to be full code. She has a formal health directive at home (requested to bring most recent copy). Spouse is the designated DPOA. Home medications reviewed and reconciled accordingly. VTE prophylaxis with SCDs and Lovenox
[2019-04-12] VITALS (13 sets, daily range): BP systolic 125–194; BP diastolic 55–106; PULSE 57–106; RESP 16–20; TEMP 36.2–37.7; O2SAT 90–94
[2019-04-12] MEDS: ALBUTEROL/IPRATROPIUM 3 ML AMPUL INH ×4 (03:30→20:24)
[2019-04-12 07:07] LABS: Add Manual Diff / Slide Review NO; Basophils Absolute Auto 0 /uL (0-100); Basophils Percent Auto 0.3 % (0-2); Eosinophils Absolute Auto 400 /uL (0-450); Eosinophils Percent Auto 9.4 % (2-4); Hematocrit 39.9 % (36-46); Hemoglobin 13.5 g/dL (12.0-16.0); Lymphocytes Absolute Auto 900 /uL (1100-4500); Lymphocytes Percent Auto 19.2 % (25-40); Mean Corpuscular Hemoglobin 32.6 PG (26-34); Mean Corpuscular Volume 96.1 fL (80-100); Monocytes Absolute Auto 800 /uL (0-900); Monocytes Percent Auto 16.8 % (3-14); Neutrophils Absolute Auto 2500 /uL (1500-7000); Neutrophils Percent Auto 54.3 % (50-75); Platelet Count 231 X10^3/uL (150-400); Red Blood Cell Count 4.15 X10^6/uL (4.0-5.2); Red Cell Distribution Width 12.8 % (11.6-14.8); White Blood Cell Count 4.7 X10^3/uL (4.5-11.0)
[2019-04-12 07:18] LABS: Albumin 3.5 g/dL (3.5-5.0); BUN Creatinine Ratio 21.3 (6-22); Blood Urea Nitrogen 17 mg/dL (7-17); Calcium 9.8 mg/dL (8.4-10.2); Carbon Dioxide 29 mmol/L (22-32); Chloride 101 mmol/L (98-107); Estimated Glomerular Filt Rate > 60.0 mL/min (>60); Glucose 96 mg/dL (80-110); HEMOLYSIS < 15 (0-50); Phosphorous 3.6 mg/dL (2.8-4.1); Potassium 3.7 mmol/L (3.4-5.1); Sodium 137 mmol/L (137-145)
[2019-04-12 07:30] LABS: Troponin I 0.038 ng/mL (0.01-0.034)
--- NOTE | 2019-04-12 09:00 | DI.US.S_ITS ---
Echocardiogram Report + + :Name: SIM HONG Study Date: 04/12/2019 Height: 66 in : :[facility] Weight: 151 lb : : Gender: Female BSA: 1.8 m2 : :: 1940 Age: 79 yrs BP: 146/71 mmHg: :Reason For Study: dyspnea : :Ordering Physician: [place] : :Hospitalist Performed By: Jennifer Nolan : :Referring: CATALINO ADAMES : + + Interpretation Summary The patient was in normal sinus rhythm during the exam. The patient had frequent PACs during the exam. The patient had frequent PVCs during the exam. The left ventricle is normal in size. Left ventricular ejection fraction is estimated to be 60 +/- 5%. In some of the views there appears to be hypokinesis of the base to mid inferior wall, extending into the mid inferolateral wall. The right ventricle is grossly normal size. The right ventricular systolic function is normal. No significant valvular pathology seen. The inferior vena cava was not visualized. Procedure: A two-dimensional transthoracic echocardiogram with color flow and Doppler was performed. The apical views were difficult to obtain and are suboptimal in quality. There is no prior echocardiogram noted for this patient. A contrast injection of Definity was performed to improve assessment of LV function. Normal sinus rhythm with frequent ectopy. The patient had frequent PACs during the exam. The patient had frequent PVCs during the exam. The patient was in normal sinus rhythm during the exam. Left Ventricle: Proximal septal thickening is noted. The left ventricle is normal in size. Left ventricular wall thickness is mildly increased. There is no echo evidence for significant left ventricular outflow tract obstruction. There is no thrombus. Left ventricular ejection fraction is estimated to be 60 +/- 5%. In some of the views there appears to be hypokinesis of the base to mid inferior wall and extending into the mid inferolateral wall. There is basal inferoseptal wall hypokinesis. MV E/A: 0.95 Med Peak E' Guillermo: 4.3 cm/sec E/E' med: 15.3. Right Ventricle: The right ventricle is not well visualized. The right ventricle is grossly normal size. The right ventricular systolic function is normal. Atria: The left atrium is mildly dilated. Right atrial size is normal. There is no Doppler evidence for an interatrial shunt. Mitral Valve: There is mild mitral annular calcification. There is trace mitral regurgitation. Aortic Valve: The aortic valve is trileaflet. The aortic valve opens well. The aortic valve is slightly calcified. There is no aortic valve stenosis. There is trace aortic regurgitation. Tricuspid Valve: The tricuspid valve is normal in structure and function. Pulmonary artery pressures cannot be estimated because of the lack of a measurable TR jet velocity but the IVC suggests a CVP of around 20 mmHg. There is trace tricuspid regurgitation. Pulmonic Valve: The pulmonic valve is not well visualized. There is trace pulmonic regurgitation. Great Vessels: The aortic root is normal size. The dimensions of the ascending aorta are normal. The inferior vena cava was not visualized. Pericardium/ Pleura There is no pericardial effusion. There is an anterior echo-free space consistent with a fat pad. MMode/2D Measurements & Calculations LVIDd: 4.6 cm LVOT diam: 2.0 cm LVIDs: 2.9 cm Ao root diam: 2.7 cm FS: 37.5 % asc Aorta Diam: 3.0 cm EPSS: 1.1 cm Ao Arch Diam (Prox Trans): 2.3 cm IVSd: 1.0 cm LVPWd: 0.88 cm LV sharma. diameter/BSA (cm/m^2): 2.6 LV sys. diameter/BSA (cm/m^2): 1.6 LA A2 area: 18.5 cm2 RA long axis: 4.3 cm LA A4 area: 19.1 cm2 RA area: 14.9 cm2 LA length (vol): 4.9 cm RA vol: 44.2 ml LA vol: 60.7 ml RA : 24.9 ml/m2 LA vol index: 34.2 ml/m2 TAPSE: 1.9 cm Doppler Measurements & Calculations Ao V2 max: 103.3 cm/sec LVOT Max Guillermo: 92.1 cm/sec Ao V2 mean: 70.9 cm/sec LV V1 max P.4 mmHg Ao max P.3 mmHg LV V1 VTI: 18.3 cm Ao mean P.3 mmHg GERMAN(I,D): 3.0 cm2 Ao V2 VTI: 19.4 cm GERMAN(V,D): 2.9 cm2 sev ratio: 0.94 GERMAN indexed to BSA (cm^2/m^2): 1.7 MV E max guillermo: 65.4 cm/sec TR max guillermo: 220.6 cm/sec MV A max guillermo: 68.6 cm/sec TR max P.7 mmHg MV E/A: 0.95 PA V2 max: 87.6 cm/sec Med Peak E' Guillermo: 4.3 cm/sec PA V2 mean: 58.5 cm/sec E/E' med: 15.3 PA mean P.6 mmHg Lat Peak E' Guillermo: 4.6 cm/sec PA pr(Accel): 13.6 mmHg E/E' lat: 14.1 PA Accel Time: 0.15 sec E/e' average: 14.7 MV dec time: 0.18 sec MV P1/2t: 53.1 msec MV P1/2t max guillermo: 66.8 cm/sec SV(LVOT): 58.6 ml MVA(P1/2t): 4.1 cm2 _ Reading Physician:04:17 PM
[2019-04-12] MEDS: ASPIRIN EC 81 MG TABLET PO (09:59)
[2019-04-12] MEDS: ENOXAPARIN 40 MG/0.4 ML SYRINGE SUBCUT (09:59)
--- NOTE | 2019-04-12 16:19 | CM.DANOTE ---
Discharge Planning/Care Management DCP: assessment: case received, EMR reviewed and met with pt. Introduced self and role. Pt is a 79 year old female who admitted last evening to care of hospitalist team. PCP:Dr Delcid. Payer: Medicare and AARP Admission status: INPT: confirmed by UR JT Trejo Pt is admitted for medical issues but did note in REGENERATOR OPERATOR Nicka's H&P that pt has dx of schizophrenia which has been managed for a long time with a nightly medication. She notes this is not on the hospital formulary and that pt will need to provide this from home if she wants to take it here. Asked pt about this. She says she was unaware but that her , rooming in but out of room now as he finds mask needed for the [employer]OPLE[employer] difficult to sustain for long periods of time, always carries the medication with him. Linette De is updated and says she will obtain an order for Dr. Bess for same and will follow to make sure pt gets the medication this evening. P: at this point likely home when stable for same. (pt confirms she does not use o2 in the home setting.) CM Discharge Assessment Start: 04/12/19 16:17 Freq: Status: Active Protocol: Document 04/12/19 16:17 ITV (Rec: 04/12/19 16:19 ITV [id number]) Discharge Planning Assessment Advance Directives? No History Provided By Patient,Medical Record Has Patient been admitted in last 30 No days? Prior Living Arrangements House Household Members spouse Comment Lives in [place] Independent with ADL's Yes Is patient alert and oriented? Yes Whiteboard Updated in Patient Room with Yes name and ext. 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
--- NOTE | 2019-04-12 18:27 | PT.IIE ---
Surgical History (Last Reviewed 04/12/19 @ 00:29 by YAS Gutierrez) Status post mastectomy (Chronic) Status post tonsillectomy (Chronic) Medical History (Last Reviewed 04/12/19 @ 00:28 by YAS Gutierrez) Age-related osteoporosis without current pathological fracture (Chronic 06/16/16) Schizophrenia (Acute) Physical Therapy Inpatient Evaluation/Re-Eval M1 PT/OT-IP Prior Functional Status Start: 04/12/19 18:28 Freq: NEEDED Status: Active Protocol: Document 04/12/19 18:27 DLM (Rec: 04/12/19 18:51 DL [id number]) Medical Review Prior Functional Status Medical History Reviewed Yes Diet/Fluid Consistency Regular Communication WNL Mobility and Gait Independent without device, walks about a mile a day. Activities of Daily Living and IADL's Independent Social History Household Members spouse Living Arrangements House Number of Floors (Floors) One Floor Number of Stairs To Enter/Railing? 5 platform steps to enter Additional Social History Comment house has a basement but she does not use it M2 PT-IP Current Condition Start: 04/12/19 18:28 Freq: NEEDED Status: Active Protocol: Document 04/12/19 18:27 DLM (Rec: 04/12/19 18:51 DL [id number]) Physical Therapy Current Condition Current Condition Evaluation Date 04/12/19 Treatment Diagnosis RSV (+), WI Onset Date 04/11/19 Precautions Other Precautions pt using 1 LPM oxygen with n.c . M3 PT-IP Subjective Start: 04/12/19 18:28 Freq: NEEDED Status: Active Protocol: Document 04/12/19 18:27 DLM (Rec: 04/12/19 18:51 DL [id number]) Subjective Physical Therapy Visit Type Type Initial Evaluation Visit Start Time 17:55 Visit Stop Time 18:27 Total Visit Minutes 32 Number of LAB REP Visits 0 Physical Therapy Visit Comments Patient Comments She reports she is feeling better Patient Goals return home Therapy Pain Assessment Pain When Pain Assessed At Rest Pain Present Pain Present Denied Pain M4 PT-IP Mobility and Gait Start: 04/12/19 18:28 Freq: NEEDED Status: Active Protocol: Document 04/12/19 18:27 DLM (Rec: 04/12/19 18:51 DL [id number]) PT-Bed Mobility Assessment Rolling Type of Rolling Bilateral Level of Assist Independent Supine to Sit Supine to Sit Independent Sit to Supine Sit to Supine Independent Scooting Scooting to Edge of Bed Independent Scooting Up and Down in Bed Independent PT-Transfer Assessment Sit to and From Stand Sit to and from Stand Independent Equipment Transfer Assistive Device None Transfers Transfer Destination Bed,Toilet Transfer Technique Stand Step Pivot Transfer Ability Level of Assist Independent Gait Assessment Gait Gait Assistance Required: Independent Distance (Feet) 80 Assistive Devices Assistive Device None Comments Gait Comments pt able to ambulate ad josh in her room using 1 LPM oxygen, shortness of breath does not limit her today, pt on Droplet precautions so gait not performed in halls today PT-Balance Assessment Sitting Balance and Reactions Static Sitting Balance Ability Normal Dynamic Sitting Balance Ability Normal Standing Balance and Reactions Static Standing Balance Ability Normal Dynamic Standing Balance Ability Normal M5 PT-IP Objective Assessments Start: 04/12/19 18:28 Freq: NEEDED Status: Active Protocol: Document 04/12/19 18:27 DL (Rec: 04/12/19 18:51 [facility] [id number]) Orientation Orientation/Cognition Level of Alertness Alert Orientation Name,Age,Birthday,Month,Date, Year,Day of Week,Place, Situation Language Function Ability No Deficits Noted Safety Awareness Understands Safety Issues Memory Description No Deficits Noted Gross Range of Motion Upper Extremity ROM Assessment Left Impaired Impairments shoulder elevation to 120 degrees, hx of injury Lower Extremity ROM Assessment Within Functional Limits Strength Upper Extremity Strength Assessment Within Functional Limits Lower Extremity Strength Assessment Within Functional Limits Coordination Assessment Gross Coordination Gross Coordination WNL Sensation Assessment Sensation Gross Sensation WNL Muscle Tone Comments Muscle Tone Comments mild dyskinesias noted in LE's with mild jumping motion of LE's in standing M7 PT-IP Assessment and Plan Start: 04/12/19 18:28 Freq: NEEDED Status: Active Protocol: Document 04/12/19 18:27 DL (Rec: 04/12/19 18:51 [facility] [id number]) PT Summary Assessment and Plan Potential Rehabilitation Potential Excellent Status of Condition at Evaluation Evolving Summary Assessment Summary Millie is pleasant and shows good effort with physical therapy. She tolerated gait and mobility well today. No assistive device needed for gait. She appears to be at her baseline for her ability to perform mobility and gait. She continues to use supplemental oxygen at this time. Recommend she continue to ambulate with nursing as tolerated. No further skilled PT needs identified at this time. Frequency of Treatment Frequency Of Treatment Discharge Recommendations To Nursing Amount of Assist Needed Independent Discharge Recommendations PT Discharge Recommendations Home Transportation Needs at Discharge Private Vehicle
--- NOTE | 2019-04-12 18:59 | PC.NURSE ---
Pt resting quietly at this time. Denies discomfort. Tele shows NSR per ICU staff. UA sent to lab. HL in MARY intact/patent. Call light w/in reach, bed alarm on for pt safety.
[2019-04-12 19:29] LABS: Appearance Urine UA CLEAR; Bilirubin Urine UA NEGATIVE (NEGATIVE); Color Urine UA YELLOW; Glucose Urine UA NEGATIVE (Negative); Ketones Urine UA NEGATIVE (NEGATIVE); Leukocyte Esterase Urine UA NEGATIVE (NEGATIVE); Nitrite Urine UA NEGATIVE (Negative); Occult Blood Urine UA NEGATIVE (Negative); Protein Urine UA NEGATIVE (Negative); Specific Gravity Urine UA 1.015 (1.000-1.035); Urobilinogen Urine UA 0.2 E.U./dL (0.2)
--- NOTE | 2019-04-12 20:24 | P.PN_ITS ---
Subjective Subjective Date Patient Seen: 04/12/19 Time Patient Seen: 20:24 Interval history: The patient is a 79-year-old female with PMH of schizophrenia, history of breast cancer (s/p mastectomy), ? COPD who is seen for follow up today of hypoxic respiratory failure. Her viral panel came back positive for RSV. Her respiratory status was slightly improved today but she still desaturated when moving in bed. Her TTE is pending. Troponin peaked and no signs of chest pain or EKG changes. Patient has improved with nebulizers and consideration currently for COPD exacerbation. Patient still reports cough and dyspnea on exertion. Denies nausea or vomiting, no abdominal pain. Exam Vital Signs (past 8 hours): - 04/12/19 13:55 04/12/19 15:56 04/12/19 16:31 Temperature 98.8 F 98.8 F Pulse Rate 84 88 Pulse Rate [Orthostatic Lying] 88 Pulse Rate [Orthostatic Sitting] 57 L Pulse Rate [Orthostatic Standing] 87 Respiratory Rate 20 18 Blood Pressure 146/71 H 150/55 H Blood Pressure [Orthostatic Lying] 138/73 Blood Pressure [Orthostatic Sitting] 194/106 H Blood Pressure [Orthostatic Standing] 160/75 H Pulse Oximetry 92 93 04/12/19 20:00 Temperature 97.2 F L Pulse Rate 88 Pulse Rate [Orthostatic Lying] Pulse Rate [Orthostatic Sitting] Pulse Rate [Orthostatic Standing] Respiratory Rate 20 Blood Pressure 153/69 H Blood Pressure [Orthostatic Lying] Blood Pressure [Orthostatic Sitting] Blood Pressure [Orthostatic Standing] Pulse Oximetry 94 Oxygen Delivery Method Nasal Cannula Oxygen Flow Rate 2 Narrative Exam Narrative: GENERAL APPEARANCE: Well developed, well nourished, in no acute distress. SKIN: Inspection of the skin reveals no rashes, ulcerations or petechiae. HEENT: The sclerae were anicteric and conjunctivae were pink and moist. Extraocular movements were intact and pupils were equal, round with normal accommodation. External inspection of the ears and nose showed no scars, lesions, or masses. Lips, teeth, and gums showed normal mucosa. The oral mucosa, hard and soft palate, tongue and posterior pharynx were unremarkable. NECK: Supple and symmetric. There was no thyroid enlargement, and no tenderness, or masses were felt. CHEST: Normal AP diameter and normal contour without any kyphoscoliosis. LUNGS: Auscultation of the lungs revealed no wheezes, rhonchi, or rales. CARDIOVASCULAR: There was a regular rate and rhythm without any murmurs, gallops, rubs. Peripheral pulses were 2+ and symmetric. ABDOMEN: Soft and nontender with normal bowel sounds. No ascites was noted. MUSCULOSKELETAL: There was no tenderness or effusions noted. Muscle strength and tone were normal. EXTREMITIES: No cyanosis, clubbing or edema. NEUROLOGIC: Alert and oriented x 3. Normal affect. Gait was normal. Strength is +5/5 in the Upper Extremities and Lower Extremities Bilaterally. Sensation to touch was normal. Objective Labs Result Diagrams: 04/12/19 06:36 04/12/19 06:36 Labs: Laboratory Results - last 24 hr 04/11/19 04/12/19 04/12/19 21:26 06:36 06:36 WBC 4.7 RBC 4.15 Hgb 13.5 Hct 39.9 MCV 96.1 MCH 32.6 MCHC 34.0 RDW 12.8 Plt Count 231 Neut % (Auto) 54.3 D Lymph % (Auto) 19.2 L [place] % (Auto) 16.8 H Eos % (Auto) 9.4 H Baso % (Auto) 0.3 Neut # (Auto) 2500 Lymph # (Auto) 900 L [place] # (Auto) 800 Eos # (Auto) 400 Baso # (Auto) 0 Sodium 137 Potassium 3.6 3.7 Chloride 101 Carbon Dioxide 29 BUN 17 Creatinine 0.80 Estimated GFR > 60.0 BUN/Creatinine Ratio 21.3 Glucose 96 Calcium 9.8 Phosphorus 3.6 Magnesium 1.9 Troponin I 0.053 H 0.038 H Albumin 3.5 Urine Color Urine Appearance Urine pH Ur Specific [place] Urine Protein Urine Glucose (UA) Urine Ketones Urine Occult Blood Urine Nitrate Urine Bilirubin Urine Urobilinogen Ur Leukocyte Esterase 04/12/19 19:36 WBC RBC Hgb Hct MCV MCH MCHC RDW Plt Count Neut % (Auto) Lymph % (Auto) [place] % (Auto) Eos % (Auto) Baso % (Auto) Neut # (Auto) Lymph # (Auto) [place] # (Auto) Eos # (Auto) Baso # (Auto) Sodium Potassium Chloride Carbon Dioxide BUN Creatinine Estimated GFR BUN/Creatinine Ratio Glucose Calcium Phosphorus Magnesium Troponin I Albumin Urine Color Yellow Urine Appearance Clear Urine pH 5.0 Ur Specific [place] 1.015 Urine Protein Negative Urine Glucose (UA) Negative Urine Ketones Negative Urine Occult Blood Negative Urine Nitrate Negative Urine Bilirubin Negative Urine Urobilinogen 0.2 Ur Leukocyte Esterase Negative Assessment & Plan Assessment & Plan narrative: The patient is a 79-year-old female with PMH of schizophrenia, history of breast cancer (s/p mastectomy), ? COPD who is seen for follow up today of hypoxic respiratory failure. She is improving s lightly with current treatments. 1. Acute respiratory failure with hypoxia, present on admission, active - - Etiology is unclear, but favor hypoxia from COPD exacerbation given improvement with nebulizer therapies. - Suspected to be in the setting of viral illness, RSV exacerbating underlying COPD based on initial CXR. - D-dimer negative by age adjustment, PE is highly unlikely - Possible underlying heart failure, echocardiogram is currently pending final read. Pro-BNP elevated to 2490. Patient was given 40 mg of IV lasix however does not appear volume overloaded on exam currently. Will await final TTE before further diuresing. - consider steroids if no further improvement for COPD exacerbation. 2. RSV, acute, present on admission, active - RSV positive on viral panel - Isolation precautions - Supportive care 3. COPD with acute exacerbation, present on admission, active - No reported history of COPD or smoking. CXR is indicative of chronic emphysematous changes / COPD. No focal infiltrate or pleural effusion. - Appreciate respiratory therapy - Duo-neb Tx can be changed to BID - consider steroids if no improvement. 4. Acute [place] type 2 rule out. Elevated tropoin. acute, present on admission, resolved. - Trop 0.045, repeat downtrended. - EKG revealed sinus tachycardia, V rate 100, with supraventricular premature complexes (similar to EKG from 07/2015) No pathological Q-waves - No chest pain on admission or during hospital course so far. 5. Schizophrenia, chronic condition, present on admission, stable - On Latuda 80 mg QHS, this is a non formulary medication for the hospital Resume, if patient is able to use her own supply Code: Full Spouse is the designated DPOA. VTE prophylaxis with SCDs and Lovenox
--- NOTE | 2019-04-12 21:44 | PC.NURSE ---
Pt has had relatively uneventful evening. Denies discomfort. Resting quietly most of shift. IV NS @ 200cc/hr infusing via pump w/o incidence. Darnell cath patent total 1200cc clear yellow urine. Tele showing first degree AVB/ST per ICU staff. Call light w/in reach, bed alarm on for pt safety. Continue w/plan of care.
[2019-04-13 00:10] VITALS: BP 151/74; BP 160/96; BP 161/102; PULSE 84; PULSE 90; PULSE 98; RESP 12; TEMP 37; O2SAT 93
[2019-04-13 04:35] VITALS: BP 143/69; PULSE 89; RESP 12; TEMP 36.8; O2SAT 94
[2019-04-13 08:00] VITALS: BP 156/76; BP 159/85; BP 178/98; PULSE 101; PULSE 89; PULSE 94; RESP 15; O2SAT 89
[2019-04-13 08:30] VITALS: O2SAT 88
[2019-04-13 09:38] VITALS: PULSE 88; RESP 20; O2SAT 91
[2019-04-13] MEDS: ALBUTEROL/IPRATROPIUM 3 ML AMPUL INH (09:38)
[2019-04-13] MEDS: ENOXAPARIN 40 MG/0.4 ML SYRINGE SUBCUT (09:38)
[2019-04-13] MEDS: ASPIRIN EC 81 MG TABLET PO (09:38)
--- NOTE | 2019-04-13 10:10 | PM.DS.1 ---
History of Present Illness History of Present Illness Date Patient Seen: 04/13/19 Time Patient Seen: 10:10 Chief complaint: trouble breathing, cough Narrative: As per YAS Gutierrez: The patient is a 79-year-old female with PMH of schizophrenia, history of breast cancer (s/p mastectomy), Patient presented to the ED upon recommendation from her primary care clinic out of concern for persistent cough over the past 3-4 weeks. Notes intermittent presence of clear phlegm without worsening purulence. Associated symptoms include exertional dyspnea and orthopnea. Endorses intermittent mild swelling in the ankles. On 04/02/2019 patient was prescribed a 10 day course of oral amoxicillin 875, which she completed without improvement in underlying symptoms. Patient denies chest pain, palpitations, dizziness, lightheadedness, and syncopal events. She does not endorse presence of abdominal pain or GI distress. Does not verbalize presence of fatigue, malaise or myalgia. Patient is known to have traveled to [place] in January of 2019. She is also known to have had breast cancer with prior history of mastectomy. No prior known history of heart disease or heart failure. Discharge Providers Provider Date of admission: 04/11/19 17:31 Discharge Date: 02/11/20 Primary care physician: Major Mercedes MD Consults: 04/11/19 14:27 Consult to Respiratory Therapy Evaluate & Treat Comment: Physician Instructions: Evaluate and treat 04/12/19 08:40 Consult to Physical Therapy Evaluate & Treat Comment: Physician Instructions: Evaluate and Treat Discharge provider: Raphael Bess DO Summary Hospital Course Discharge Diagnosis: 1. Acute respiratory failure with hypoxia, present on admission, active - 2. RSV, acute, present on admission, active 3. COPD with acute exacerbation, present on admission, active 4. Acute VA type 2 ruled out. Elevated tropoin. acute, present on admission, resolved. 5. Schizophrenia, chronic condition, present on admission, stable Hospital Course: The patient is a 79-year-old female with PMH of schizophrenia, history of breast cancer (s/p mastectomy), ? COPD who is seen for follow up today of hypoxic respiratory failure. She improved with nebulizer treatments suggesting COPD exacerbation. Upon discharge her respiratory failure had resolved and she did not desaturate below 90% while resting or after ambulation on my exam. 1. Acute respiratory failure with hypoxia, present on admission, resolved - - Etiology is unclear, but favor hypoxia from COPD exacerbation from RSV infection given improvement with nebulizer therapies. She is being discharged on a short course of steroids upon discharge as noted below. - Suspected to be in the setting of viral illness, RSV exacerbating underlying COPD based on initial CXR. - D-dimer negative by age adjustment, PE was deemed highly unlikely - Echocardiogram revealed EF of approx. 50% with areas of hypokinesis. Pro-BNP elevated to 2490. Patient was given 40 mg of IV lasix however did not appear volume overloaded on admission exam or throughout her course. Further CXR is not consistent with volume overload. - she does require further outpatient evaluation of the areas of hypokinesis as noted above. 2. RSV, acute, present on admission, active - RSV positive on viral panel - Isolation precautions were enacted after patient's testing was positive - Supportive care was provided. 3. COPD with acute exacerbation, present on admission, active - No reported history of COPD or smoking. CXR is indicative of chronic emphysematous changes / COPD. No focal infiltrate or pleural effusion. - Appreciate respiratory therapy assistance. Patient will be discharged with 20 mg of prednisone x3 days for possible exacerbation. She was also discharged with as needed albuterol. She should follow up with her primary care provider for outpatient pulmonary function testing. 4. Acute VA type 2 rule out. Elevated tropoin. acute, present on admission, resolved. - Trop 0.045, repeat downtrended. - EKG revealed sinus tachycardia, V rate 100, with supraventricular premature complexes (similar to EKG from 07/2015) No pathological Q-waves or evidence of ischemia. - No chest pain on admission or during hospital course. 5. Schizophrenia, chronic condition, present on admission, stable - On Latuda 80 mg QHS, which the patient can continue. Exam Vital Signs (past 8 hours): - 04/13/19 04:35 04/13/19 08:00 04/13/19 08:30 Temperature 98.3 F Pulse Rate 89 89 Pulse Rate [Orthostatic Lying] 89 Pulse Rate [Orthostatic Sitting] 94 H Pulse Rate [Orthostatic Standing] 101 H Respiratory Rate 12 15 Blood Pressure 143/69 H 156/76 H Blood Pressure [Orthostatic Lying] 156/76 H Blood Pressure [Orthostatic Sitting] 159/85 H Blood Pressure [Orthostatic Standing] 178/98 H Pulse Oximetry 94 89 L 88 L 04/13/19 09:38 Temperature Pulse Rate 88 Pulse Rate [Orthostatic Lying] Pulse Rate [Orthostatic Sitting] Pulse Rate [Orthostatic Standing] Respiratory Rate 20 Blood Pressure Blood Pressure [Orthostatic Lying] Blood Pressure [Orthostatic Sitting] Blood Pressure [Orthostatic Standing] Pulse Oximetry 91 Oxygen Delivery Method Room Air Oxygen Flow Rate 2 Narrative Exam Narrative: GENERAL APPEARANCE: Well developed, well nourished, in no acute distress. SKIN: Inspection of the skin reveals no rashes, ulcerations or petechiae. HEENT: The sclerae were anicteric and conjunctivae were pink and moist. Extraocular movements were intact and pupils were equal, round with normal accommodation. External inspection of the ears and nose showed no scars, lesions, or masses. Lips, teeth, and gums showed normal mucosa. The oral mucosa, hard and soft palate, tongue and posterior pharynx were unremarkable. NECK: Supple and symmetric. There was no thyroid enlargement, and no tenderness, or masses were felt. CHEST: Normal AP diameter and normal contour without any kyphoscoliosis. LUNGS: Auscultation of the lungs revealed no wheezes, rhonchi, or rales. CARDIOVASCULAR: There was a regular rate and rhythm without any murmurs, gallops, rubs. Peripheral pulses were 2+ and symmetric. ABDOMEN: Soft and nontender with normal bowel sounds. No ascites was noted. MUSCULOSKELETAL: There was no tenderness or effusions noted. Muscle strength and tone were normal. EXTREMITIES: No cyanosis, clubbing or edema. NEUROLOGIC: Alert and oriented x 3. Normal affect. Gait was normal. Strength is +5/5 in the Upper Extremities and Lower Extremities Bilaterally. Sensation to touch was normal. Objective Labs Result Diagrams: 04/12/19 06:36 04/12/19 06:36 Labs: Laboratory Results - last 24 hr 04/12/19 19:36 Urine Color Yellow Urine Appearance Clear Urine pH 5.0 Ur Specific [place] 1.015 Urine Protein Negative Urine Glucose (UA) Negative Urine Ketones Negative Urine Occult Blood Negative Urine Nitrate Negative Urine Bilirubin Negative Urine Urobilinogen 0.2 Ur Leukocyte Esterase Negative Discharge Plan Discharge Plan Patient Disposition: Home Discharge comment: You were admitted to the hospital with shortness of breath. Your chest x-ray showed signs of emphysema, and you also tested positive for a virus called RSV. Your breathing improved with nebulizers. You're being discharged with a short course of small dose steroids. You also had an echocardiogram, which showed normal function, however there is a portion of your heart that is not moving as it should. You should follow-up with a canal structure operator as previously scheduled, and they may want to do a stress test. You should also have a pulmonary function test. I am also sending you with of rescue inhaler in case you feel short of breath. Discharge orders & Medications Prescriptions: New albuterol sulfate 90 mcg/actuation aerosol powdr breath activated 1 inhalation INHALATION Q4-6H PRN (Reason: shortness of breath or wheezing) Qty: 1 RF: 0 (DME) nebulizer and compressor Device See Rx Instructions .ROUTE .MEDSUPPLY Qty: 1 RF: 0 albuterol sulfate 2.5 mg/0.5 mL solution for nebulization 2.5 mg INHALATION Q20M Qty: 30 RF: 0 prednisone 20 mg tablet 20 mg PO DAILY 3 Days Qty: 3 RF: 0 Continued aspirin 81 mg Tablet,Delayed Release (Dr/Ec) 81 mg PO DAILY RF: 0 lurasidone 80 mg tablet 80 mg PO QPM RF: 0 I-Caps 280-10-2 mg Capsule 1 cap PO DAILY RF: 0 Calcium 1 tab PO DAILY RF: 0 Vitamin D3 1 cap PO DAILY RF: 0 vitamin E 1 cap PO DAILY RF: 0 Follow up/Referrals: Major Mercedes MD [Primary Care Provider] - Discharge Health Status Health Concerns: emphysema Diet/Activity/Treatments Diet: Diet as Tolerated Activity: As tolerated Visit Report/Discharge Packet Instructions: DI for Respiratory Syncytial Virus -- Adults, How to Prevent Falls, Prednisone, Albuterol Oral Inhalation Discharge Data Primary Care Provider: Major Mercedes Discharges patient from system. Discharge Date/Time: 04/13/19 13:32
--- NOTE | 2019-04-13 12:53 | PC.NURSE ---
Day shift: Pt left unit in WC to private car driven by her spouse. They are headed back to [facility]. Paperwork signed and all questions answered. Pt has all personal belongings and her home med given back from pharmacy. New MD scrips sent to their pharmacy on [address]. Pt told that when her symptoms are gone she wont be contagious. Pt supplied with some extra face masks. Taken in by this rfp writer.
== END 2019-04-13 13:32 | disposition home or self-care (01) | DRG 190 ==
LOC: ED 17:26 → AC 17:33
PROVIDERS: Nurse Practitioner Gerontology; Admitting Provider Internal Medicine; Emergency Provider Internal Medicine; PCP Family Medicine; Referring Provider Emergency Medicine; Visit Provider Internal Medicine
DX: J44.1 Chronic obstructive pulmonary disease with (acute) exacerbation (principal); J96.01 Acute respiratory failure with hypoxia; B97.4 Respiratory syncytial virus as the cause of diseases classified elsewhere; F20.9 Schizophrenia, unspecified
CPT/HCPCS: 36415; 71046; 80053; 80069; 81003; 83735; 83880; 84132; 84484; 85025; 85379; 87633; 93005; 93306; 94640; 94760; 94762; 96374; 97161; 99284; 99285; J1650; J1940; J7611; Q9957

== ENCOUNTER 2020-01-10 08:51 | Emergency (ER) | payer MEDICARE, SELFPAY ==
[2019-04-11 18:56] VITALS: BMI 24.5
[2020-01-10] VITALS (20 sets, daily range): BP systolic 161–218; BP diastolic 70–169; PULSE 77–97; RESP 18–42; TEMP 37.1; O2SAT 93–99
--- NOTE | 2020-01-10 09:12 | DI.CT.S_ITS ---
PROCEDURE: CT FACIAL BONES WO CON INDICATIONS: fall, facial laceration, raccoon eyes TECHNIQUE: Noncontrast 2.5 mm thick axial images acquired from the mandible through the frontal sinuses, with coronal and sagittal reformatting. For radiation dose reduction, the following was used: automated exposure control, adjustment of mA and/or kV according to patient size. COMPARISON: None. FINDINGS: Image quality: Excellent. Bones and teeth: Orbital fang are intact. Sinus fang show no fracture or deformity. There are fractures of bilateral anterior nasal bones. Nasal septal deviation to the right is seen. Visualized portions of the mandible demonstrate no fractures or subluxation. Zygomatic arches are intact. Pterygoid plates are intact. Visualized portions of the skull base and auditory canals are intact. Sinuses: Retention cyst or mucocele is noted in posterior inferior aspect of left maxillary sinus. Mild mucosal thickening in anterolateral aspect of right maxillary sinus is also seen. There is also mucosal thickening in bilateral anterior ethmoid air cells. Mastoid air cells are aerated. Soft tissues: There is frontal scalp laceration and swelling particularly on the left side. Soft tissue swelling anterior to left orbit and left maxilla is also seen. There is also moderate anterior nasal soft tissue swelling. Vascular: Visualized vascular structures appear normal in the absence of contrast. Bony vascular foramina and canals are intact. IMPRESSION: 1. Anterior nasal bone fractures with nasal septal deviation to the right. Overlying soft tissue swelling is also seen. 2. Left frontal scalp laceration with swelling and mild hematoma. No underlying skull fracture. 3. Soft tissue swelling and edema along anterior aspect of left orbit and left maxilla. No underlying orbital wall fracture. No other facial bone fracture. Bilateral zygomatic arches are intact. 4. Mucosal thickening and retention cysts in bilateral paranasal sinuses as above. Bilateral mastoids are well aerated. Dictated by: Dudley Hoyt M.D. on 01/10/2020 at 9:10 Approved by: Dudley Hoyt M.D. on 01/10/2020 at 9:17
--- NOTE | 2020-01-10 09:15 | ED_ITS ---
HPI - Fall <Anahi Gilliam, DO - Last Filed: 01/10/20 18:03> General Chief Complaint: Fall Stated Complaint: FELL HEAD WOUND Time Seen by Provider: 01/10/20 09:04 Source: patient and family () Mode of arrival: Ambulatory Limitations: no limitations History of Present Illness HPI Narrative: This is a pleasant 79-year-old female comes to the emergency department with complaint of head wound. Patient was helping a family member move piece of furniture by shining a flashlight while walking outdoors last night and she tripped and fell striking the front of her head on some concrete p ain versus. Patient states that she has pain over the bridge of her nose and had quite a bit of bleeding and bruising beneath both eyes. She also has quite a bit of pain in her right ribs. She denies any neck or back pain. She denies any loss of consciousness. She does have a headache but states it is improving. No vision changes. No nausea or vomiting. Denies any numbness tingling or weakness. She did have to lean on her because she was so uncomfortable to walk but has been able to ambulate. She also has some mild discomfort in her right forearm but has full range of motion and her right knee. Patient does not take anticoagulants. She does take Latuda for schizophrenia and states her symptoms are currently well controlled. She denies any other medical issues. She is quite hypertensive and states she has always been told she has normal blood pressure. She has had mastectomy in the past for breast cancer. No tobacco, alcohol or illicit. She states her tetanus is up-to-date. She lives on [facility] with her so she was delayed in getting here secondary to various being shut down overnight. Related Data Home Medications Medication Instructions Recorded Confirmed Calcium 1 tab PO DAILY 03/30/18 04/12/19 I-Caps 1 cap PO DAILY 03/30/18 04/12/19 Vitamin D3 1 cap PO DAILY 03/30/18 04/12/19 aspirin 81 mg PO DAILY 03/30/18 04/12/19 lurasidone 80 mg PO QPM 03/30/18 04/12/19 vitamin E 1 cap PO DAILY 03/30/18 04/12/19 Previous Rx's Medication Instructions Recorded albuterol sulfate 1 inhalation INHALATION Q4-6H PRN 04/13/19 #1 each albuterol sulfate 2.5 mg INHALATION Q20M #30 each 04/13/19 nebulizer and compressor #1 each 04/13/19 oxycodone 5 mg PO QID PRN #14 tab 01/10/20 Allergies Allergy/AdvReac Type Severity Reaction Status Date / Time Sulfa (Sulfonamide Allergy Unknown Verified 04/11/19 17:33 Antibiotics) [SULFA (SULFONAMIDE ANTIBIOTICS)] Review of Systems <Anahi Gilliam DO - Last Filed: 01/10/20 18:03> Review of Systems ROS Unobtainable: All systems reviewed & are unremarkable except as noted in HPI and below Patient History <Anahi Gilliam DO - Last Filed: 01/10/20 18:03> Medical History Age-related osteoporosis without current pathological fracture (Chronic 06/16/16) Schizophrenia (Acute) Surgical History Status post mastectomy (Chronic) Status post tonsillectomy (Chronic) Social History household members: spouse Smoking Status: Never smoker alcohol intake: never substance use type: does not use Smoking Status: Never smoker Substance Use Type: does not use Exam <Anahi Gilliam DO - Last Filed: 01/10/20 18:03> Narrative Exam Narrative: GEN: Patient appears in mild distress. HEAD: Positive for raccoon sign, no Sheldon sign. Vertical Laceration running from the bridge of the nose about snf down the midline, there is no significant gaps but it is deep. There is no bony or subcutaneous tissue currently exposed. Patient also has a irregular crescent-shaped laceration above this and the glabellar region slightly to the left, there is some exposure of subcutaneous tissue quite a bit clot present but no galea involvement or bony exposure. NECK: Nontender, painless range of motion, trachea midline Negative Nexus criteria, there is no mid line tenderness, distracting injury, altered mental status, neuro deficit, recent EtOH. EYES: PERRLA, EOMI ENT: See above, trachea is midline, TM's are normal no hemotypanum, Nares are clear, no septal hematoma, no dental or oral injury, airway is normal and with normal occlusion, No bony tenderness RESP: Chest has symmetric movement, right chest wall ecchymosis and tenderness, new symptoms, breath sounds are normal no crackles, wheezes or rales, patient has healed incisions consistent with mastectomy CVS: Heart sounds are normal, no murmur noted, No JVD. ABG/GI: Nontender, soft, normal bowel sounds, no distention, no organomegaly, pelvic rock is negative NEURO: Oriented AOx3, neuro is grossly intact, sensation and motor is normal all 4 extremities moving, cranial nerves II through XII are intact, GCS is 15 PSYCH: Normal mood and affect SKIN: Intact except as described above, warm and dry, no crepitus and without decubitus BACK: No CVA tenderness, no vertebral tenderness, no step-off's, no crepitus EXT: Atraumatic, hips are nontender, no pedal edema, normal color and temperature, normal range of motion of extremities with normal tendon exam, 2+ pulses in all four extremities Initial Vital Signs Initial Vital Signs: Vital Signs Temperature 98.7 F 01/10/20 09:00 Pulse Rate 97 H 01/10/20 09:00 Respiratory Rate 18 01/10/20 09:00 Blood Pressure 217/153 H 01/10/20 09:00 Pulse Oximetry 97 01/10/20 09:00 <Eladio KiddRenea [facility] - Last Filed: 01/10/20 13:37> Initial Vital Signs Initial Vital Signs: Vital Signs Temperature 98.7 F 01/10/20 09:00 Pulse Rate 97 H 01/10/20 09:00 Respiratory Rate 18 01/10/20 09:00 Blood Pressure 217/153 H 01/10/20 09:00 Pulse Oximetry 97 01/10/20 09:00 <[facility] - Last Filed: 01/10/20 13:37> Laceration Repair Laceration 1: Site: face Size (cm): 2.5 ( x 1.5) Description: irregular (T shape) Depth: simple, single layer Local Anesthetic: lidocaine 1% and with epi Amount of anesthesia used (mL): 2 Pre-repair: wound explored and irrigated extensively Skin layer closed with: nylon Size (cm): 5-0 Number of sutures: 6 Technique: simple, interrupted Scores <Anahi Judith NavinDO ron - Last Filed: 01/10/20 18:03> GCS [place] coma scale eye opening: Spontaneous Ashli coma scale verbal response: Orientated Ashli coma scale motor response: Obey commands Ashli coma scale total score: 15 Course <Anahi Gilliam DO - Last Filed: 01/10/20 18:03> Orders Ordered: ED Orders 01/10/20 09:12 CT facial bones wo con Stat 01/10/20 09:13 CT cervical spine wo con Stat CT head/brain wo con Stat 01/10/20 09:20 Complete Blood Count AUTO DIFF Stat Comprehensive Metabolic Panel Stat Ethanol (ETOH) Stat Lipase Stat Partial Thromboplastin Time Stat Prothrombin Time INR Stat Troponin & CK Cardiac Panel Stat Type and Screen Stat 01/10/20 09:42 EKG-12 Lead Stat 01/10/20 09:53 CT chest abd pel w con Stat Discontinued Medications Hydrocodone Bitart/Acetaminophen (Alviso 5/325) 1 tab PO NOW ONE Stop: 01/10/20 12:30 Last Admin: 01/10/20 12:44 Dose: 1 tab Documented by: ELISA Bacitracin (Bacitracin) 1 applic TOP NOW ONE Stop: 01/10/20 12:32 Last Admin: 01/10/20 12:44 Dose: 1 applic Documented by: ELISA Sodium Chloride (Normal Saline 0.9%) 1,000 mls @ 150 mls/hr IV CONT RANJIT Last Infusion: 01/10/20 13:56 Dose: 0 mls/hr Documented by: Admin: 01/10/20 09:39 Dose: 150 mls/hr Documented by: ELISA Lidocaine HCl (Xylocaine 1%) 10 ml INJ NOW ONE Stop: 01/10/20 12:32 Last Admin: 01/10/20 12:53 Dose: Not Given Documented by: ELISA Lidocaine/Epinephrine (Xylocaine 1.5% W/Epi) 4 ml INJ NOW ONE Stop: 01/10/20 11:49 Last Admin: 01/10/20 12:53 Dose: Not Given Documented by: ELISA Morphine Sulfate (Morphine) 2 mg IV NOW ONE Stop: 01/10/20 09:13 Last Admin: 01/10/20 09:39 Dose: 2 mg Documented by: ELISA Morphine Sulfate (Morphine) 2 mg IV NOW ONE Stop: 01/10/20 12:30 Last Admin: 01/10/20 13:19 Dose: Not Given Documented by: ALEE Ondansetron HCl (Zofran) 4 mg IV Q4HR PRN PRN Reason: Nausea Last Admin: 01/10/20 09:39 Dose: 4 mg Documented by: EILSA Reevaluation(s) Reevaluation #1: Patient BP is improved. patient pain has improved after morphine. Time: 10:58 Reevaluation #2: Patient was sutured by our HEEL [employer]ER. Patient tolerated procedure well she did have some increase in pain after going to the bathroom so was given additional dose of morphine and Alviso for longer-term pain control. Her blood pressure has continued to slowly improve in the department. Reviewed patient's imaging findings, bilateral nasal bone fractures, laceration with his no obvious rib fracture but clinically I would suspect she still has [address] is negative she may have bruising of the ribs. Time: 13:40 Vital Signs Vital signs: Vital Signs - 8 hr 01/10/20 10:30 01/10/20 11:00 01/10/20 11:30 Pulse Rate 81 85 81 Respiratory Rate 19 28 H 25 H Blood Pressure 182/84 H 172/97 H 165/81 H Pulse Oximetry 93 93 95 01/10/20 11:45 01/10/20 11:47 01/10/20 12:00 Pulse Rate 92 H 82 Respiratory Rate 22 Blood Pressure 184/95 H Pulse Oximetry 96 96 01/10/20 12:01 01/10/20 12:30 01/10/20 12:31 Pulse Rate 85 83 84 Respiratory Rate 21 20 23 Blood Pressure 211/99 H 186/75 H Pulse Oximetry 97 96 97 01/10/20 13:00 01/10/20 13:01 01/10/20 13:30 Pulse Rate 84 84 77 Respiratory Rate 19 18 20 Blood Pressure 182/78 H 182/78 H Pulse Oximetry 97 97 95 01/10/20 13:31 Pulse Rate 78 Respiratory Rate 19 Blood Pressure 161/70 H Pulse Oximetry 96 <YAS Moralez - Last Filed: 01/10/20 13:37> Orders Ordered: ED Orders 01/10/20 09:12 CT facial bones wo con Stat 01/10/20 09:13 CT cervical spine wo con Stat CT head/brain wo con Stat 01/10/20 09:20 Complete Blood Count AUTO DIFF Stat Comprehensive Metabolic Panel Stat Ethanol (ETOH) Stat Lipase Stat Partial Thromboplastin Time Stat Prothrombin Time INR Stat Troponin & CK Cardiac Panel Stat Type and Screen Stat 01/10/20 09:42 EKG-12 Lead Stat 01/10/20 09:53 CT chest abd pel w con Stat Discontinued Medications Hydrocodone Bitart/Acetaminophen (Alviso 5/325) 1 tab PO NOW ONE Stop: 01/10/20 12:30 Last Admin: 01/10/20 12:44 Dose: 1 tab Documented by: ELISA Bacitracin (Bacitracin) 1 applic TOP NOW ONE Stop: 01/10/20 12:32 Last Admin: 01/10/20 12:44 Dose: 1 applic Documented by: ELISA Sodium Chloride (Normal Saline 0.9%) 1,000 mls @ 150 mls/hr IV CONT RANJIT Last Infusion: 01/10/20 13:56 Dose: 0 mls/hr Documented by: Admin: 01/10/20 09:39 Dose: 150 mls/hr Documented by: ELISA Lidocaine HCl (Xylocaine 1%) 10 ml INJ NOW ONE Stop: 01/10/20 12:32 Last Admin: 01/10/20 12:53 Dose: Not Given Documented by: ELISA Lidocaine/Epinephrine (Xylocaine 1.5% W/Epi) 4 ml INJ NOW ONE Stop: 01/10/20 11:49 Last Admin: 01/10/20 12:53 Dose: Not Given Documented by: ELISA Morphine Sulfate (Morphine) 2 mg IV NOW ONE Stop: 01/10/20 09:13 Last Admin: 01/10/20 09:39 Dose: 2 mg Documented by: ELISA Morphine Sulfate (Morphine) 2 mg IV NOW ONE Stop: 01/10/20 12:30 Last Admin: 01/10/20 13:19 Dose: Not Given Documented by: ALEE Ondansetron HCl (Zofran) 4 mg IV Q4HR PRN PRN Reason: Nausea Last Admin: 01/10/20 09:39 Dose: 4 mg Documented by: ELISA Vital Signs Vital signs: Vital Signs - 8 hr 01/10/20 10:30 01/10/20 11:00 01/10/20 11:30 Pulse Rate 81 85 81 Respiratory Rate 19 28 H 25 H Blood Pressure 182/84 H 172/97 H 165/81 H Pulse Oximetry 93 93 95 01/10/20 11:45 01/10/20 11:47 01/10/20 12:00 Pulse Rate 92 H 82 Respiratory Rate 22 Blood Pressure 184/95 H Pulse Oximetry 96 96 01/10/20 12:01 01/10/20 12:30 01/10/20 12:31 Pulse Rate 85 83 84 Respiratory Rate 21 20 23 Blood Pressure 211/99 H 186/75 H Pulse Oximetry 97 96 97 01/10/20 13:00 01/10/20 13:01 01/10/20 13:30 Pulse Rate 84 84 77 Respiratory Rate 19 18 20 Blood Pressure 182/78 H 182/78 H Pulse Oximetry 97 97 95 01/10/20 13:31 Pulse Rate 78 Respiratory Rate 19 Blood Pressure 161/70 H Pulse Oximetry 96 MDM - Fall <Anahi Gilliam, - Last Filed: 01/10/20 18:03> Lab Data Attestation: I reviewed the patient's lab results. Result diagrams: 01/10/20 09:20 01/10/20 09:20 Labs: Lab Results 01/10/20 01/10/20 01/10/20 Range/Units 09:20 09:20 09:20 WBC 6.3 (4.5-11.0) X10^3/uL RBC 4.29 (4.0-5.2) X10^6/uL Hgb 14.3 (12.0-16.0) g/dL Hct 42.8 (36-46) % MCV 99.8 (80-100) fL MCH 33.4 (26-34) PG MCHC 33.5 (30-36) % RDW 13.7 (11.6-14.8) % Plt Count 205 (150-400) X10^3/uL Neut % (Auto) 67.9 (50-75) % Lymph % (Auto) 17.5 L (25-40) % [place] % (Auto) 10.9 (3-14) % Eos % (Auto) 3.4 (2-4) % Baso % (Auto) 0.3 (0-2) % Neut # (Auto) 4300 (3483-4485) /uL Lymph # (Auto) 1100 (7076-7814) /uL [place] # (Auto) 700 (0-900) /uL Eos # (Auto) 200 (0-450) /uL Baso # (Auto) 0 (0-100) /uL PT 12.0 (10.1-12.7) SECONDS INR 1.0 (0.9-1.3) APTT 35 (26.4-36.2) SECONDS Sodium 139 (137-145) mmol/L Potassium 4.2 (3.4-5.1) mmol/L Chloride 106 (98-107) mmol/L Carbon Dioxide 33 H (22-32) mmol/L BUN 21 H (7-17) mg/dL Creatinine 0.80 (0.52-1.04) mg/dL Estimated GFR > 60.0 (>60) mL/min BUN/Creatinine Ratio 26.3 H (6-22) Glucose 94 (80-110) mg/dL Calcium 10.1 (8.4-10.2) mg/dL Total Bilirubin 0.7 (0.2-1.3) mg/dL AST 55 H (14-36) IU/L ALT 44 H (<35) IU/L Alkaline Phosphatase 75 (38-126) U/L Total Creatine Kinase 270 H (30-135) U/L CK-MB (CK-2) 1.52 (<2.37) ng/mL CK-MB (CK-2) Rel Index 0.6 L (1.5-5.0) % Troponin I 0.030 (0.01-0.034) ng/mL Total Protein 6.9 (6.3-8.2) g/dL Albumin 4.1 (3.5-5.0) g/dL Globulin 2.8 (1.7-4.1) g/dL Albumin/Globulin Ratio 1.5 (1.0-2.8) Lipase 211 (23-300) U/L Ethyl Alcohol < 10 ( - 10) mg/dL Blood Type Antibody Screen 01/10/20 Range/Units 09:20 WBC (4.5-11.0) X10^3/uL RBC (4.0-5.2) X10^6/uL Hgb (12.0-16.0) g/dL Hct (36-46) % MCV (80-100) fL MCH (26-34) PG MCHC (30-36) % RDW (11.6-14.8) % Plt Count (150-400) X10^3/uL Neut % (Auto) (50-75) % Lymph % (Auto) (25-40) % [place] % (Auto) (3-14) % Eos % (Auto) (2-4) % Baso % (Auto) (0-2) % Neut # (Auto) (2114-6498) /uL Lymph # (Auto) (4123-3774) /uL [place] # (Auto) (0-900) /uL Eos # (Auto) (0-450) /uL Baso # (Auto) (0-100) /uL PT (10.1-12.7) SECONDS INR (0.9-1.3) APTT (26.4-36.2) SECONDS Sodium (137-145) mmol/L Potassium (3.4-5.1) mmol/L Chloride (98-107) mmol/L Carbon Dioxide (22-32) mmol/L BUN (7-17) mg/dL Creatinine (0.52-1.04) mg/dL Estimated GFR (>60) mL/min BUN/Creatinine Ratio (6-22) Glucose (80-110) mg/dL Calcium (8.4-10.2) mg/dL Total Bilirubin (0.2-1.3) mg/dL AST (14-36) IU/L ALT (<35) IU/L Alkaline Phosphatase (38-126) U/L Total Creatine Kinase (30-135) U/L CK-MB (CK-2) (<2.37) ng/mL CK-MB (CK-2) Rel Index (1.5-5.0) % Troponin I (0.01-0.034) ng/mL Total Protein (6.3-8.2) g/dL Albumin (3.5-5.0) g/dL Globulin (1.7-4.1) g/dL Albumin/Globulin Ratio (1.0-2.8) Lipase (23-300) U/L Ethyl Alcohol ( - 10) mg/dL Blood Type O Positive Antibody Screen Negative Imaging Data CT scan - head: Radiologist's Impression: Millie Romano 79 F [address] [address] [address] Scan Report Signed Patient: Millie Romano LMR#: [id number] : 1940cct:[id number] Age/Sex: 79 / FDate of Service: 01/10/20 Loc: ED Accession Number: [id number] Procedure: CT head/brain wo con Ordering Provider: Anahi Gilliam D.O. PROCEDURE: CT HEAD/BRAIN WO CON INDICATIONS: Trauma TECHNIQUE: Noncontrast 4.5 mm thick angled axial sections acquired from the foramen magnum to the vertex, with coronal and sagittal reformats. For radiation dose reduction, the following was used: automated exposure control, adjustment of mA and/or kV according to patient size. COMPARISON: None. FINDINGS: Image quality: Excellent. CSF spaces: Basal cisterns are patent. No extra-axial fluid collections. The ventricles are symmetric in size and shape. Brain: No intracranial bleeds or masses. There is cerebral volume loss for age, with resultant ventricular and sulcal prominence. There are periventricular and deep white matter chronic small vessel ischemic changes. There is intracranial internal carotid artery atherosclerosis. Skull and face: There is no acute calvarial fracture. Frontal scalp laceration and swelling with underlying soft tissue hematoma is seen. Left periorbital soft tissue swelling is also noted. No acute orbital wall fracture. Fractures of bilateral anterior nasal bones are seen with overlying soft tissue swelling. Sinuses: Retention cyst in posterior aspect of left maxillary sinus is seen. Bilateral mastoid air cells are well aerated. IMPRESSION: 1. No CT evidence of acute intracranial pathology. Age-appropriate atrophy and periventricular and deep white matter chronic small vessel ischemic changes. 2. Frontal scalp laceration and hematoma. No acute skull fracture. 3. Left periorbital soft tissue swelling. No gross acute orbital wall fracture. 4. Anterior nasal bone fractures. Please correlate with CT of facial bone findings. Dictated by: Dudley Hoyt M.D. on 01/10/2020 at 9:02 Approved by: Dudley Hoyt M.D. on 01/10/2020 at 9:06 CT - cervical spine: Radiologist's Impression: [address] [address] [address] Scan Report Signed Patient: Millie Romano LMR#: [id number] : 2Acct:[id number] Age/Sex: 79 / FDate of Service: 01/10/20 Loc: ED Accession Number: [id number] Procedure: CT cervical spine wo con Ordering Provider: Anahi Gilliam D.O. PROCEDURE: CT CERVICAL SPINE WO CON INDICATIONS: Trauma TECHNIQUE: Noncontrast 3 mm thick sections acquired from the skull base to the T4 level. Sagittal and coronal reformats were then constructed. For radiation dose reduction, the following was used: automated exposure control, adjustment of mA and/or kV according to patient size. COMPARISON: None. FINDINGS: Image quality: Excellent. Bones: No fractures or dislocations. Visualized superior ribs are intact. Mild degenerative disc disease and bilateral acid hypertrophic changes are noted t hroughout cervical spine. No significant canal stenosis or neural foraminal narrowing is seen. Soft tissues: Prevertebral soft tissues are normal in thickness. No paravertebral hematomas. No apical pneumothoraces. IMPRESSION: 1. No acute cervical spine fracture or dislocation. 2. Mild degenerative disc disease throughout cervical spine as above. Dictated by: Dudley Hoyt M.D. on 01/10/2020 at 9:06 Approved by: Dudley Hoyt M.D. on 01/10/2020 at 9:09 CT scan - chest: Radiologist's Impression: [address] [address] [address] Scan Report Signed Patient: Millie Romano LMR#: [id number] : 1940t:[id number] Age/Sex: 79 / FDate of Service: 01/10/20 Loc: ED Accession Number: [id number] Procedure: CT chest abd pel w con Ordering Provider: Anahi Gilliam D.O. PROCEDURE: CT CHEST ABD PEL W CON COMPARISON: None. INDICATIONS: Trauma FINDINGS: FINDINGS: Image quality: Excellent. CHEST: Lungs and pleura: No acute air space opacities. No pleural effusions or pneumothorax. Central and peripheral airways are patent and normal in caliber. Mediastinum: Heart size is normal. The coronary arteries have atherosclerotic calcifications. No pericardial effusion. No mediastinal adenopathy by size criteria. The thoracic and abdominal aorta have diffuse atherosclerotic calcifications with no dissection or aneurysmal dilatation. Esophagus is normal in caliber. No hiatal hernia. Bones and chest wall: The left 10th rib has a remote healed rib fracture. No vertebral body compression fractures. No axillary or supraclavicular adenopathy by size criteria. Thyroid gland is normal . ABDOMEN: Solid organs: Liver: The liver has no mass or intrahepatic biliary ductal dilatation. The portal vein and hepatic veins are patent. Biliary: The gallbladder has no gallstones, pericholecystic fluid, gallbladder wall thickening, or surrounding inflammatory change. Pancreas: The pancreas has no mass or ductal dilatation. There is no surrounding inflammation. Spleen: Normal size. There are no masses. Adrenals: No hypertrophy or nodules. Kidneys: No obstructive calculus or hydronephrosis. No solid mass. No cystic mass. Bowel: The distal esophagus and stomach are normal. The small bowel has a normal caliber and appearance. The terminal ileum is normal. The large bowel has a normal caliber and appearance. The appendix is normal. No free fluid or air. Nodes and vessels: No retroperitoneal or mesenteric adenopathy by size criteria. Aorta and inferior vena cava are normal in size. Abdominal wall: No abdominal wall mass or hernia. PELVIS: Genitourinary: The bladder has no wall thickening or mass. No bladder calcifications. Miscellaneous: No inguinal hernias or adenopathy. Bones and abdominal wall: No suspicious bony lesions. No vertebral body compression fractures. IMPRESSION: 1. No acute traumatic abnormality of the abdomen or pelvis. 2. Remote healed left 10th rib fracture. Dictated by: Abdelrahman Garcia M.D. on 01/10/2020 at 10:01 Approved by: Abdelrahman Garcia M.D. on 01/10/2020 at 10:19 CT facial bones: Radiologist's Impression: [place] [address] CT Scan Report Signed Patient: Millie Romano LMR#: [id number] : 2Acct:[id number] Age/Sex: 79 / FDate of Service: 01/10/20 Loc: ED Accession Number: [id number] Procedure: CT facial bones wo con Ordering Provider: Anahi Gilliam D.O. PROCEDURE: CT FACIAL BONES WO CON INDICATIONS: fall, facial laceration, raccoon eyes TECHNIQUE: Noncontrast 2.5 mm thick axial images acquired from the mandible through the frontal sinuses, with coronal and sagittal reformatting. For radiation dose reduction, the following was used: automated exposure control, adjustment of mA and/or kV according to patient size. COMPARISON: None. FINDINGS: Image quality: Excellent. Bones and teeth: Orbital fang are intact. Sinus fang show no fracture or deformity. There are fractures of bilateral anterior nasal bones. Nasal septal deviation to the right is seen. Visualized portions of the mandible demonstrate no fractures or subluxation. Zygomatic arches are intact. Pterygoid plates are intact. Visualized portions of the skull base and auditory canals are intact. Sinuses: Retention cyst or mucocele is noted in posterior inferior aspect of left maxillary sinus. Mild mucosal thickening in anterolateral aspect of right maxillary sinus is also seen. There is also mucosal thickening in bilateral anterior ethmoid air cells. Mastoid air cells are aerated. Soft tissues: There is frontal scalp laceration and swelling particularly on the left side. Soft tissue swelling anterior to left orbit and left maxilla is also seen. There is also moderate anterior nasal soft tissue swelling. Vascular: Visualized vascular structures appear normal in the absence of contrast. Bony vascular foramina and canals are intact. IMPRESSION: 1. Anterior nasal bone fractures with nasal septal deviation to the right. Overlying soft tissue swelling is also seen. 2. Left frontal scalp laceration with swelling and mild hematoma. No underlying skull fracture. 3. Soft tissue swelling and edema along anterior aspect of left orbit and left maxilla. No underlying orbital wall fracture. No other facial bone fracture. Bilateral zygomatic arches are intact. 4. Mucosal thickening and retention cysts in bilateral paranasal sinuses as above. Bilateral mastoids are well aerated. Dictated by: Dudley Hoyt M.D. on 01/10/2020 at 9:10 Approved by: Dudley Hoyt M.D. on 01/10/2020 at 9:17 ECG Data Attestation: I personally reviewed and interpreted this ECG as follows: Interpretation: Sinus rhythm, rate of 92, NC 155, QRS of 90 and QTC of 405. Nonspecific ST change. MDM Narrative Medical decision making narrative: Patient comes in with significant bruising and laceration of her face. Head CT, facial bones, C-spine and chest abdomen pelvis show nasal bone fractures no other significant fractures. Still suspicious for rib fracture at least rib contusion on the right, there is an old healing left rib fracture but patient is not tender on that side and did have an injury about a year ago. Laceration was repaired by the nurse practitioner. Patient was hypertensive initially but has been improving. Pain has been controlled with morphine and was also given an oral narcotic. <Eladio CarneyYAS - Last Filed: 01/10/20 13:37> Lab Data Labs: Lab Results 01/10/20 01/10/20 01/10/20 Range/Units 09:20 09:20 09:20 WBC 6.3 (4.5-11.0) X10^3/uL RBC 4.29 (4.0-5.2) X10^6/uL Hgb 14.3 (12.0-16.0) g/dL Hct 42.8 (36-46) % MCV 99.8 (80-100) fL MCH 33.4 (26-34) PG MCHC 33.5 (30-36) % RDW 13.7 (11.6-14.8) % Plt Count 205 (150-400) X10^3/uL Neut % (Auto) 67.9 (50-75) % Lymph % (Auto) 17.5 L (25-40) % [place] % (Auto) 10.9 (3-14) % Eos % (Auto) 3.4 (2-4) % Baso % (Auto) 0.3 (0-2) % Neut # (Auto) 4300 (0062-6206) /uL Lymph # (Auto) 1100 (9847-9437) /uL [place] # (Auto) 700 (0-900) /uL Eos # (Auto) 200 (0-450) /uL Baso # (Auto) 0 (0-100) /uL PT 12.0 (10.1-12.7) SECONDS INR 1.0 (0.9-1.3) APTT 35 (26.4-36.2) SECONDS Sodium 139 (137-145) mmol/L Potassium 4.2 (3.4-5.1) mmol/L Chloride 106 (98-107) mmol/L Carbon Dioxide 33 H (22-32) mmol/L BUN 21 H (7-17) mg/dL Creatinine 0.80 (0.52-1.04) mg/dL Estimated GFR > 60.0 (>60) mL/min BUN/Creatinine Ratio 26.3 H (6-22) Glucose 94 (80-110) mg/dL Calcium 10.1 (8.4-10.2) mg/dL Total Bilirubin 0.7 (0.2-1.3) mg/dL AST 55 H (14-36) IU/L ALT 44 H (<35) IU/L Alkaline Phosphatase 75 (38-126) U/L Total Creatine Kinase 270 H (30-135) U/L CK-MB (CK-2) 1.52 (<2.37) ng/mL CK-MB (CK-2) Rel Index 0.6 L (1.5-5.0) % Troponin I 0.030 (0.01-0.034) ng/mL Total Protein 6.9 (6.3-8.2) g/dL Albumin 4.1 (3.5-5.0) g/dL Globulin 2.8 (1.7-4.1) g/dL Albumin/Globulin Ratio 1.5 (1.0-2.8) Lipase 211 (23-300) U/L Ethyl Alcohol < 10 ( - 10) mg/dL Blood Type Antibody Screen 01/10/20 Range/Units 09:20 WBC (4.5-11.0) X10^3/uL RBC (4.0-5.2) X10^6/uL Hgb (12.0-16.0) g/dL Hct (36-46) % MCV (80-100) fL MCH (26-34) PG MCHC (30-36) % RDW (11.6-14.8) % Plt Count (150-400) X10^3/uL Neut % (Auto) (50-75) % Lymph % (Auto) (25-40) % [place] % (Auto) (3-14) % Eos % (Auto) (2-4) % Baso % (Auto) (0-2) % Neut # (Auto) (6051-3550) /uL Lymph # (Auto) (0429-2470) /uL [place] # (Auto) (0-900) /uL Eos # (Auto) (0-450) /uL Baso # (Auto) (0-100) /uL PT (10.1-12.7) SECONDS INR (0.9-1.3) APTT (26.4-36.2) SECONDS Sodium (137-145) mmol/L Potassium (3.4-5.1) mmol/L Chloride (98-107) mmol/L Carbon Dioxide (22-32) mmol/L BUN (7-17) mg/dL Creatinine (0.52-1.04) mg/dL Estimated GFR (>60) mL/min BUN/Creatinine Ratio (6-22) Glucose (80-110) mg/dL Calcium (8.4-10.2) mg/dL Total Bilirubin (0.2-1.3) mg/dL AST (14-36) IU/L ALT (<35) IU/L Alkaline Phosphatase (38-126) U/L Total Creatine Kinase (30-135) U/L CK-MB (CK-2) (<2.37) ng/mL CK-MB (CK-2) Rel Index (1.5-5.0) % Troponin I (0.01-0.034) ng/mL Total Protein (6.3-8.2) g/dL Albumin (3.5-5.0) g/dL Globulin (1.7-4.1) g/dL Albumin/Globulin Ratio (1.0-2.8) Lipase (23-300) U/L Ethyl Alcohol ( - 10) mg/dL Blood Type O Positive Antibody Screen Negative Discharge Plan Departure Patient Disposition: Home Clinical Impression: Fractured nasal bones, Closed rib fracture, Facial laceration Discharge Date/Time: 01/10/20 14:20 Instructions: DI for Concussion, DI for Nose Fracture, DI for Laceration Repair Activity Restrictions/Additional Instructions: Follow-up in the next several days for recheck with your primary care physician. Your blood pressure today was also quite elevated I would recommend follow-up and recheck of your blood pressure You may continue home medications as prescribed. May take Tylenol up to a 1000 mg every 8 hours as needed for pain, if this is not adequate you may take narcotic pain medication as prescribed in addition to the Tylenol. Prescription sent to [facility] in [place] Make sure you are taking a stool softener if you are taking the narcotic pain medication. Take pain medications as prescribed, these medications can make you sleepy do not drive, perform hazardous activities or make any major decisions while taking them. Return to the ER for fevers, signs of infection at your laceration repair site, altered mental status, severe headaches, vision changes, confusion, difficulty with speech, new numbness tingling or weakness or other new or concerning symptoms. Wound Care: Keep wound(s) clean and dry. Wash daily with soap and water only. Do not use over the counter products (alcohol or peroxide)on the wounds unless instructed by a physician. If wound condition worsens (increased/expanding redness, developing fluid blisters, or worsening pain), either contact your doctor for an urgent re- assessment , or return to the Emergency Department. Return to the Emergency Department for any new or worsening symptoms. Prescriptions: New oxycodone 5 mg tablet 5 mg PO QID PRN (Reason: pain) Qty: 14 RF: 0 No Action aspirin 81 mg Tablet,Delayed Release (Dr/Ec) 81 mg PO DAILY RF: 0 lurasidone 80 mg tablet 80 mg PO QPM RF: 0 I-Caps 280-10-2 mg Capsule 1 cap PO DAILY RF: 0 Calcium 1 tab PO DAILY RF: 0 Vitamin D3 1 cap PO DAILY RF: 0 vitamin E 1 cap PO DAILY RF: 0 albuterol sulfate 90 mcg/actuation aerosol powdr breath activated 1 inhalation INHALATION Q4-6H PRN (Reason: shortness of breath or wheezing) Qty: 1 RF: 0 (DME) nebulizer and compressor Device See Rx Instructions .ROUTE .MEDSUPPLY Qty: 1 RF: 0 albuterol sulfate 2.5 mg/0.5 mL solution for nebulization 2.5 mg INHALATION Q20M Qty: 30 RF: 0 Referrals: Frandy Farooq MD [Primary Care Provider] -
[2020-01-10 09:36] LABS: Add Manual Diff / Slide Review NO; Basophils Absolute Auto 0 /uL (0-100); Basophils Percent Auto 0.3 % (0-2); Eosinophils Absolute Auto 200 /uL (0-450); Eosinophils Percent Auto 3.4 % (2-4); Hematocrit 42.8 % (36-46); Hemoglobin 14.3 g/dL (12.0-16.0); Lymphocytes Absolute Auto 1100 /uL (1100-4500); Lymphocytes Percent Auto 17.5 % (25-40); Mean Corpuscular HGB Conc 33.5 % (30-36); Mean Corpuscular Hemoglobin 33.4 PG (26-34); Mean Corpuscular Volume 99.8 fL (80-100); Monocytes Absolute Auto 700 /uL (0-900); Monocytes Percent Auto 10.9 % (3-14); Neutrophils Absolute Auto 4300 /uL (1500-7000); Neutrophils Percent Auto 67.9 % (50-75); Platelet Count 205 X10^3/uL (150-400); Red Blood Cell Count 4.29 X10^6/uL (4.0-5.2); Red Cell Distribution Width 13.7 % (11.6-14.8); White Blood Cell Count 6.3 X10^3/uL (4.5-11.0)
[2020-01-10] MEDS: SODIUM CHLORIDE 0.9% 1,000 ML 150 ML IV (09:39)
[2020-01-10] MEDS: ONDANSETRON 4 MG/2 ML INJ IV (09:39)
[2020-01-10] MEDS: MORPHINE 2 MG/ML INJ IV (09:39)
[2020-01-10 09:46] LABS: PTT Partial Thromboplastin Tim 35 SECONDS (26.4-36.2)
[2020-01-10 09:53] LABS: Alanine Aminotransferase 44 IU/L (<35); Albumin 4.1 g/dL (3.5-5.0); Albumin Globulin Ratio 1.5 (1.0-2.8); Alkaline Phosphatase 75 U/L (38-126); Aspartate Aminotransferase 55 IU/L (14-36); BUN Creatinine Ratio 26.3 (6-22); Bilirubin Total 0.7 mg/dL (0.2-1.3); Blood Urea Nitrogen 21 mg/dL (7-17); Calcium 10.1 mg/dL (8.4-10.2); Carbon Dioxide 33 mmol/L (22-32); Chloride 106 mmol/L (98-107); Creatine Kinase 270 U/L (30-135); Estimated Glomerular Filt Rate > 60.0 mL/min (>60); Ethanol (ETOH) < 10 mg/dL; Globulin 2.8 g/dL (1.7-4.1); Glucose 94 mg/dL (80-110); HEMOLYSIS < 15 (0-50); Lipase 211 U/L (23-300); Potassium 4.2 mmol/L (3.4-5.1); Sodium 139 mmol/L (137-145); Total Protein 6.9 g/dL (6.3-8.2)
--- NOTE | 2020-01-10 09:53 | DI.CT.S_ITS ---
PROCEDURE: CT CHEST ABD PEL W CON COMPARISON: None. INDICATIONS: Trauma FINDINGS: FINDINGS: Image quality: Excellent. CHEST: Lungs and pleura: No acute air space opacities. No pleural effusions or pneumothorax. Central and peripheral airways are patent and normal in caliber. Mediastinum: Heart size is normal. The coronary arteries have atherosclerotic calcifications. No pericardial effusion. No mediastinal adenopathy by size criteria. The thoracic and abdominal aorta have diffuse atherosclerotic calcifications with no dissection or aneurysmal dilatation. Esophagus is normal in caliber. No hiatal hernia. Bones and chest wall: The left 10th rib has a remote healed rib fracture. No vertebral body compression fractures. No axillary or supraclavicular adenopathy by size criteria. Thyroid gland is normal . ABDOMEN: Solid organs: Liver: The liver has no mass or intrahepatic biliary ductal dilatation. The portal vein and hepatic veins are patent. Biliary: The gallbladder has no gallstones, pericholecystic fluid, gallbladder wall thickening, or surrounding inflammatory change. Pancreas: The pancreas has no mass or ductal dilatation. There is no surrounding inflammation. Spleen: Normal size. There are no masses. Adrenals: No hypertrophy or nodules. Kidneys: No obstructive calculus or hydronephrosis. No solid mass. No cystic mass. Bowel: The distal esophagus and stomach are normal. The small bowel has a normal caliber and appearance. The terminal ileum is normal. The large bowel has a normal caliber and appearance. The appendix is normal. No free fluid or air. Nodes and vessels: No retroperitoneal or mesenteric adenopathy by size criteria. Aorta and inferior vena cava are normal in size. Abdominal wall: No abdominal wall mass or hernia. PELVIS: Genitourinary: The bladder has no wall thickening or mass. No bladder calcifications. Miscellaneous: No inguinal hernias or adenopathy. Bones and abdominal wall: No suspicious bony lesions. No vertebral body compression fractures. IMPRESSION: 1. No acute traumatic abnormality of the abdomen or pelvis. 2. Remote healed left 10th rib fracture. Dictated by: Abdelrahman Garcia M.D. on 01/10/2020 at 10:01 Approved by: Abdelrahman Garcia M.D. on 01/10/2020 at 10:19
[2020-01-10 10:07] LABS: CKMB % Relative Index 0.6 % (1.5-5.0); Creatine Kinase MB 1.52 ng/mL (<2.37)
[2020-01-10] MEDS: LIDOCAINE 1% W/EPI 30 ML (12:44)
[2020-01-10] MEDS: HYDROCODONE/ACET 5/325 TABLET 1 TAB PO (12:44)
[2020-01-10] MEDS: BACITRACIN OINT 0.9 GM PCKT 1 APPLIC TOP (12:44)
--- NOTE | 2020-01-10 14:08 | PC.NURSE ---
Attempting to discharge patient. Provider requested wait for to return to room before discharge. Patient agreed with plan. Assisted to change into clothing while waiting and laying in bed with warm blankets while waiting.
== END 2020-01-10 14:20 | disposition home or self-care (01) ==
PROVIDERS: Emergency Provider Emergency Medicine; PCP Family Medicine
DX: S02.2XXA Fracture of nasal bones, initial encounter for closed fracture (principal); S22.32XA Fracture of one rib, left side, initial encounter for closed fracture; S01.21XA Laceration without foreign body of nose, initial encounter; W01.0XXA Fall on same level from slipping, tripping and stumbling without subsequent striking against object, initial encounter
CPT/HCPCS: 12011; 36415; 70450; 70486; 71260; 72125; 74177; 80053; 80320; 82550; 82553; 83690; 84484; 85025; 85610; 85730; 86850; 86900; 86901; 93005; 96361; 96374; 96375; 99285; J2270; J2405; Q9967

== ENCOUNTER 2020-05-12 18:05 | Emergency (ER) | payer MEDICARE, SELFPAY ==
[2019-04-11 18:56] VITALS: BMI 24.5
[2020-05-12] VITALS (7 sets, daily range): BP systolic 202–221; BP diastolic 89–121; PULSE 69–91; RESP 18–22; TEMP 36.5; O2SAT 93–98; BMI 26.6
--- NOTE | 2020-05-12 18:13 | ED.FEMALEGU ---
HPI - Female Genitourinary General Chief complaint: Urogenital-Female Stated complaint: UNABLE TO PEE Time Seen by Provider: 05/12/20 18:09 Source: patient and family Mode of arrival: Ambulatory Limitations: no limitations History of Present Illness HPI Narrative: 80F nonsmoker with history of CHF and paranoid schizophrenia in remission presents with her in the chief complaint of urinary urgency for days to weeks. She is a poor historian and admits to no other symptoms. She states that she feels that she is able to control her bladder and bowel habits but that it when she has to urinate she is given little warning before she has to go. She denies any pain, hematuria, vaginal fullness. She denies any back pain, numbness, tingling, lower extremity weakness, tingling, foot drop or other. She denies any new injuries, but does state she suffered a fall a few months ago and was seen here and had lots of pictures. She deneis vaginal bleeding or discharge. She has had no fever, chills, N/V or other. Related Data Home Medications Medication Instructions Recorded Confirmed Calcium 1 tab PO DAILY 03/30/18 04/12/19 I-Caps 1 cap PO DAILY 03/30/18 04/12/19 Vitamin D3 1 cap PO DAILY 03/30/18 04/12/19 aspirin 81 mg PO DAILY 03/30/18 04/12/19 lurasidone 80 mg PO QPM 03/30/18 04/12/19 vitamin E 1 cap PO DAILY 03/30/18 04/12/19 Previous Rx's Medication Instructions Recorded albuterol sulfate 1 inhalation INHALATION Q4-6H PRN 04/13/19 #1 each albuterol sulfate 2.5 mg INHALATION Q20M #30 each 04/13/19 nebulizer and compressor #1 each 04/13/19 oxycodone 5 mg PO QID PRN #14 tab 01/10/20 Allergies Allergy/AdvReac Type Severity Reaction Status Date / Time Sulfa (Sulfonamide Allergy Unknown Verified 05/12/20 18:29 Antibiotics) [SULFA (SULFONAMIDE ANTIBIOTICS)] Review of Systems Constitutional Constitutional: Denies chills, Denies fatigue, Denies fever(s), Denies frequent falls, Denies lethargy and Denies weakness Eyes Eyes: Denies change in vision, Denies eye discharge, Denies irritation and Denies loss of vision ENT Ears, Nose, Mouth, and Throat: Denies change in voice, Denies dizziness, Denies neck pain, Denies sore throat and Denies throat swelling Cardiovascular Cardiovascular: Denies chest pain, Denies irregular heart rhythm, Denies lightheadedness, Denies palpitations, Denies dyspnea, Denies dyspnea on exertion and Denies orthopnea Respiratory Respiratory: Denies cough, Denies dyspnea, Denies dyspnea on exertion and Denies wheezing Gastrointestinal Gastrointestinal: Denies abdominal pain, Denies change in bowel habits, Denies diarrhea, Denies nausea and Denies vomiting Genitourinary Comments: urinary urgency Musculoskeletal Musculoskeletal: Denies neck pain and Denies numbness Integumentary/Breasts Skin/Breast: Denies pruritus, Denies erythema, Denies rash and Denies wounds Neurologic Neurologic: Denies behavioral changes, Denies confusion, Denies dizziness, Denies frequent falls, Denies loss of vision, Denies numbness and Denies weakness Psychiatric Psychiatric: Denies anxiety, Denies behavioral changes, Denies confusion, Denies depression, Denies homicidal ideation and Denies suicidal ideation Endocrine Endocrine: Denies fatigue, Denies flushing and Denies palpitations Hematologic/Lymphatic Hematologic/Lymphatic: Denies easy bruising Allergic/Immunologic Allergic/Immunologic: Denies urticaria, Denies throat swelling and Denies wheezing Patient History Medical History Age-related osteoporosis without current pathological fracture (06/16/16) Schizophrenia Surgical History Status post mastectomy Status post tonsillectomy Substance Use Type: does not use Exam Narrative Exam Narrative: GENERAL: [80] year old patient appears stated age. Well-nourished, well-developed patient, in mild distress. HEAD: Atraumatic. Normocephalic. EYES: Pupils equal round and reactive. Extraocular motions intact. No scleral icterus. No injection or drainage. ENT: Nose without bleeding, purulent drainage. Throat without erythema, tonsillar hypertrophy or exudate. Airway patent. NECK: Trachea midline. Non tender CARDIOVASCULAR: Regular rate and rhythm without murmurs, gallops, or rubs. RESPIRATORY: Clear to auscultation. Breath sounds equal bilaterally. No wheezes, rales, or rhonchi. GASTROINTESTINAL: Abdomen soft, non-tender, nondistended. PELVIC: No obvious prolapse EXTREMITIES: No edema or joint tenderness. BACK: Nontender without deformity or crepitance. No flank tenderness. NO saddle anesthessia. B/L LE 5/5 strength. No sensory deficit. B/L patellar reflexes 2+ NEURO: AOx3. SKIN: No rash or erythema of visible areas Initial Vital Signs Initial Vital Signs: Vital Signs Temperature 97.7 F 05/12/20 18:19 Pulse Rate 88 05/12/20 18:19 Respiratory Rate 18 05/12/20 18:19 Blood Pressure 220/121 H 05/12/20 18:19 Pulse Oximetry 98 05/12/20 18:19 Course Orders Ordered: ED Orders 05/12/20 19:59 CT lumbar spine wo con Stat Vital Signs Vital signs: Vital Signs - 8 hr 05/12/20 18:19 05/12/20 19:38 05/12/20 20:20 Temperature 97.7 F Pulse Rate 88 80 91 H Respiratory Rate 18 22 Blood Pressure 220/121 H 221/98 H Pulse Oximetry 98 97 93 05/12/20 20:21 05/12/20 20:30 05/12/20 21:00 Temperature Pulse Rate 81 79 69 Respiratory Rate Blood Pressure 215/103 H 202/94 H Pulse Oximetry 98 96 95 05/12/20 21:01 Temperature Pulse Rate 82 Respiratory Rate Blood Pressure 208/89 H Pulse Oximetry 96 MDM - Female Genitourinary Lab Data Labs: Urine Dip Bedside Urine Glucose Negative Bedside Urine Bilirubin - Negative Bedside Urine Ketone - Negative Urine Specific [place] 1.010 Bedside Urine Occult Blood - Negative Bedside Urine pH 6.0 Bedside Urine Protein - Negative Bedside Urine Urobilinogen - Negative Bedside Urine Nitrite - Negative Bedside Urine Leukocytes - Negative Esterase Imaging Data Lumbar CT: Radiologist's Impression: Rosalina,Millie L 80 F [address] [id number] Scan ReportSigned Patient: Millie Romano LMR#: [id number]: [id number]/Sex: 80 / FDate of Service: 05/12/20Loc: EDAccession Number: [id number] Procedure: CT lumbar spine wo con Ordering Provider: Guzman Mendieta D.O. PROCEDURE: CT LUMBAR SPINE WO CON INDICATIONS: back pain, traumatic fall TECHNIQUE: Noncontrast 3 mm thick sections acquired from the T12 level to the sacrum. Sagittal and coronal reformats were constructed. For radiation dose reduction, the following was used: automated exposure control. COMPARISON: None. FINDINGS: Image quality: Excellent. Bones: Diffuse osteopenia which limits exam sensitivity. No acute fracture identified. Presumed hemangioma with internal trabecula seen in the T12 vertebral body. There is anatomic alignment. Multilevel degenerative endplate sclerosis and spurring. Diffuse facet arthropathy. Lateral curvature of the spine incidentally noted. Soft tissues: No retroperitoneal masses or hematomas. Visualized aorta is normal in caliber. Scattered vascular calcifications seen in the aorta. IMPRESSION: No fracture. Chronic degenerative changes as above Dictated by: Santo Ambrocio M.D. on 05/12/2020 at 20:50 Approved by: Santo Ambrocio M.D. on 05/12/2020 at 20:53 MDM Narrative Medical decision making narrative: Multiple etiologies for patient's symptoms considered including: [UTI vs. cauda equina vs. cystocele or other pelvic floor problem vs. other] Patient's symptoms improved over duration of stay with above-stated therapies. Findings and discharge diagnosis discussed with patient/family followed by verbalization of understanding Return precautions discussed with patient/family whom verbalize understanding. Discharge Plan Departure Patient Disposition: Home Clinical Impression: Urinary urgency Instructions: DI for Urinary Incontinence Activity Restrictions/Additional Instructions: *You have been diagnosed with [urinary urgency and mild incontinence. Your exam, history, and imaging are very reassuring.] *What to do: * continue to take medications as directed *Follow up with your primary care provider in 2-3 days, call for an appointment. Let them know you were seen in the Emergency Department and that we ask that you be seen in follow up *Return to ER if you should have any new, worsening or concerning symptoms, such as [loss of control of bowel or bladder, severe pain or weakness in your legs, fever greater than 101 F or other bothersome symptoms] Prescriptions: No Action oxycodone 5 mg tablet 5 mg PO QID PRN (Reason: pain) Qty: 14 RF: 0 aspirin 81 mg Tablet,Delayed Release (Dr/Ec) 81 mg PO DAILY RF: 0 lurasidone 80 mg tablet 80 mg PO QPM RF: 0 I-Caps 280-10-2 mg Capsule 1 cap PO DAILY RF: 0 Calcium 1 tab PO DAILY RF: 0 Vitamin D3 1 cap PO DAILY RF: 0 vitamin E 1 cap PO DAILY RF: 0 albuterol sulfate 90 mcg/actuation aerosol powdr breath activated 1 inhalation INHALATION Q4-6H PRN (Reason: shortness of breath or wheezing) Qty: 1 RF: 0 (DME) nebulizer and compressor Device See Rx Instructions .ROUTE .MEDSUPPLY Qty: 1 RF: 0 albuterol sulfate 2.5 mg/0.5 mL solution for nebulization 2.5 mg INHALATION Q20M Qty: 30 RF: 0 Referrals: Frandy Farooq MD [Primary Care Provider] -
--- NOTE | 2020-05-12 18:45 | PC.NURSE ---
pt was in the restroom when first called for triage.
--- NOTE | 2020-05-12 19:59 | DI.CT.S_ITS ---
PROCEDURE: CT LUMBAR SPINE WO CON INDICATIONS: back pain, traumatic fall TECHNIQUE: Noncontrast 3 mm thick sections acquired from the T12 level to the sacrum. Sagittal and coronal reformats were constructed. For radiation dose reduction, the following was used: automated exposure control. COMPARISON: None. FINDINGS: Image quality: Excellent. Bones: Diffuse osteopenia which limits exam sensitivity. No acute fracture identified. Presumed hemangioma with internal trabecula seen in the T12 vertebral body. There is anatomic alignment. Multilevel degenerative endplate sclerosis and spurring. Diffuse facet arthropathy. Lateral curvature of the spine incidentally noted. Soft tissues: No retroperitoneal masses or hematomas. Visualized aorta is normal in caliber. Scattered vascular calcifications seen in the aorta. IMPRESSION: No fracture. Chronic degenerative changes as above Dictated by: Santo Ambrocio M.D. on 05/12/2020 at 20:50 Approved by: Santo Ambrocio M.D. on 05/12/2020 at 20:53
== END 2020-05-12 21:33 | disposition home or self-care (01) ==
PROVIDERS: Emergency Provider Emergency Medicine; PCP Family Medicine
DX: R39.15 Urgency of urination (principal); M54.9 Dorsalgia, unspecified
CPT/HCPCS: 51798; 72131; 81003; 99284

== ENCOUNTER 2020-11-10 13:00 | Outpatient (RCR) | payer MEDICARE, SELFPAY ==
[2019-04-11 18:56] VITALS: BMI 24.5
--- NOTE | 2020-06-30 16:25 | PT.OIE ---
Current Diagnoses Urgency of urination (06/30/20) Chronic fatigue, unspecified (06/30/20) Past Medical History (Last Reviewed 05/12/20 @ 23:23 by Gzuman Mendieta DO) Age-related osteoporosis without current pathological fracture (06/16/16) Schizophrenia Past Surgical History (Last Reviewed 05/12/20 @ 23:23 by Guzman Mendieta DO) Status post mastectomy Status post tonsillectomy Visit Care Team Role Provider Type Frandy Farooq MD Primary Care Provider Non-Staff Specialty: [facility] Address: [facility] , [address], [place], [address] Email: Sintia Lombardi PA-C Attending Provider Advanced Priest Referring Provider Specialty: Medical Address: [address] [place] [address], [id number] Email: [email or web address] Physical Therapy Initial Evaluation PT-OP-A Visit Information Start: 06/30/20 08:51 Freq: Status: Active Protocol: Document 06/30/20 13:30 AMB (Rec: 06/30/20 16:06 AMB [id number]) Out-Patient Physical Therapy Visit Information Visit Information Visit Type Initial Evaluation Visit Start Time 13:30 Visit Stop Time 14:15 Total Visit Minutes 45 Visit Number 1 PT-OP-B Current Condition Start: 06/30/20 08:51 Freq: Status: Active Protocol: Document 06/30/20 13:30 AMB (Rec: 06/30/20 14:20 AMB [id number]) Current Condition History of Current Condition Onset Date A few months Current Complaints urge incontinence History of Current Condition Millie describes urge incontinence that came on insidiously. She is not the best historian, sometimes saying that she leaks 5x/day, but then other times saying she only voids urine 3x/day. A large trigger for her is washing the dishes. But she also has urgency at other times per day, but is unsure what brings that urgency and then leaking once she gets into the bathroom on. She had one vaginal delivery and denies specific incontinence around the time of or delivery. Treatment Goals Patient/Caregiver Goals stop leaking/urgency Prior Functional Status Baseline Function- ADL's Independent Baseline Function- Mobility Independent Current Functional Impairments (Reported) Functional Limitations- ADL's difficulty washing dishes without running to bathroom. Personal Factors Other Personal Factors That May Effect schizophrenia in remission Therapy/Recovery PT-OP-C Subjective Start: 06/30/20 08:51 Freq: Status: Active Protocol: Document 06/30/20 13:30 AMB (Rec: 06/30/20 16:06 AMB [id number]) Patient Questionnaires Pelvic Pain and Urgency/Frequency Patient Symptom Scale Pelvic Pain Score 5 PT-OP-I Pelvic Floor Start: 06/30/20 08:51 Freq: Status: Active Protocol: Document 06/30/20 13:30 AMB (Rec: 06/30/20 16:06 AMB [id number]) Pelvic Floor Assessment Urine Pelvic Floor Surgery No Urinary Symptoms Urge Sensation,Incomplete Emptying Leakage Size Small Leakage Cause Urge Other Leakage Causes washing the dishes Leaks Per Day 5 Voiding Frequency 3x/day? Nocturia 3 Pelvic Clock Pelvic Clock 12-3 Atrophy Pelvic Clock 3-6 Atrophy Pelvic Clock 9-12 Atrophy Perineal Descent Resting Absent Bearing Absent Contraction Ability Voluntary Contraction Weak Voluntary Relaxation Moderate Manual Muscle Testing Left 0 Manual Muscle Testing Right 1 Manual Muscle Testing Anterior 1 Manual Muscle Testing Posterior 1 Muscle Endurance (Seconds) 1 Number of Quick Contractions In 10 1 Seconds Comments Pelvic Floor Comments Pt with significant difficulty engaging the pelvic floor muscles, tended to hold breath , use abdominals and use gluteals PT-OP-Q Treatments Start: 06/30/20 08:51 Freq: Status: Active Protocol: Document 06/30/20 13:30 AMB (Rec: 06/30/20 16:06 AMB [id number]) Therapeutic Exercises Supine Exercises 1 Supine Exercise Name quick flicks with NMES Reps/Minutes 10 PT-OP-T Assessment and Plan Start: 06/30/20 08:51 Freq: Status: Active Protocol: Document 06/30/20 13:30 AMB (Rec: 06/30/20 16:06 AMB [id number]) Physical Therapy Assessment Rehab Potential Rehabilitation Potential Good Evaluation Complexity Number of Personal Factors/Comorbidities 1-2 Number of Body Systems Impaired 1-2 Clinical Presentation at Evaluation Stable Impairments Impairments Functional Activities,Strength Goals Two Impairment Pelvic floor strength Short Term Goal (STG) Millie will contract her pelvic floor wiht 3/5 strength or greater. STG Duration 4 weeks Mcc Goal (LTG) Millie will contract her pelvic floor for 10 seconds while in standing. LTG Duration 8 weeks One Impairment Continence Short Term Goal (STG) Millie will be independent with urge suppression techniques. STG Duration 4 weeks Mcc Goal (LTG) Millie will be able to wash the dishes without leaking. LTG Duration 8 weeks Assessment Summary Assessment Millei attends physical therapy with urge incontinence , but was a somewhat poor historian and significant difficulty coordinating her pelvic floor muscles. She was instructed in urge suppression techniques, but will likely need continued review of this and continued instruction of how to contract her pelvic floor muscles to make improvements. Physical Therapy Plan Frequency and Duration Frequency of Treatment 1x/Week Duration of Treatment 8 weeks Plan of Care Start Date 06/30/20 Plan of Care End Date 08/25/20 Therapeutic Interventions Therapeutic Interventions Home Exercise Program,Manual Therapy,Neuromuscular Re- education,Self-Care/Home Management,Therapeutic Activities,Therapeutic Exercises Modalities Biofeedback,Electric Stimulation Next Visit Focus/Plan Next Note Type Treatment Note Next Visit Plan Urge suppression, biofeedback, review vinay
--- NOTE | 2020-06-30 16:26 | PT.OPPOC ---
Physical, Occupational & Speech Therapy At [facility] Current Diagnoses Urgency of urination (06/30/20) Chronic fatigue, unspecified (06/30/20) Visit Care Team Role Provider Type rFandy Farooq MD Primary Care Provider Non-Staff Specialty: Family Practice Address: [address] , [address], [place], [address] Email: Sintia Lombardi PA-C Attending Provider Advanced Tax Services Professional Referring Provider Specialty: Medical Address: [place], [address] Email: [email or web address] Plan Of Care PT-OP-T Assessment and Plan Start: 06/30/20 08:51 Freq: Status: Active Protocol: Document 06/30/20 13:30 AMB (Rec: 06/30/20 16:06 AMB [id number]) Physical Therapy Assessment Rehab Potential Rehabilitation Potential Good Evaluation Complexity Number of Personal Factors/Comorbidities 1-2 Number of Body Systems Impaired 1-2 Clinical Presentation at Evaluation Stable Impairments Impairments Functional Activities,Strength Goals Two Impairment Pelvic floor strength Short Term Goal (STG) Millie will contract her pelvic floor wiht 3/5 strength or greater. STG Duration 4 weeks Prison Goal (LTG) Millie will contract her pelvic floor for 10 seconds while in standing. LTG Duration 8 weeks One Impairment Continence Short Term Goal (STG) Millie will be independent with urge suppression techniques. STG Duration 4 weeks Prison Goal (LTG) Millie will be able to wash the dishes without leaking. LTG Duration 8 weeks Assessment Summary Assessment Millie attends physical therapy with urge incontinence , but was a somewhat poor historian and significant difficulty coordinating her pelvic floor muscles. She was instructed in urge suppression techniques, but will likely need continued review of this and continued instruction of how to contract her pelvic floor muscles to make improvements. Physical Therapy Plan Frequency and Duration Frequency of Treatment 1x/Week Duration of Treatment 8 weeks Plan of Care Start Date 06/30/20 Plan of Care End Date 08/25/20 Therapeutic Interventions Therapeutic Interventions Home Exercise Program,Manual Therapy,Neuromuscular Re- education,Self-Care/Home Management,Therapeutic Activities,Therapeutic Exercises Modalities Biofeedback,Electric Stimulation Next Visit Focus/Plan Next Note Type Treatment Note Next Visit Plan Urge suppression, biofeedback, review vinay Plan of Care Dates Plan of Care Start Date 06/30/20 Plan of Care End Date 08/25/20 Electronically Signed by: Nadja Manjarrez, PT 06/30/20 8317 Please Sign and Return: I have reviewed this Plan of Care and certify that the skilled therapy services above are required to meet the patient?s needs. Physician Signature Date Printed Name and Credentials Clinical Instructor Signature Printed Name and Credentials
--- NOTE | 2020-07-07 12:47 | PT.OTN ---
Current Diagnoses Urgency of urination (07/07/20) Chronic fatigue, unspecified (07/07/20) Physical Therapy Treatment Note PT-OP-A Visit Information Start: 06/30/20 08:51 Freq: Status: Active Protocol: Document 07/07/20 11:05 AMB (Rec: 07/07/20 11:38 AMB [id number]) Out-Patient Physical Therapy Visit Information Visit Information Visit Type Treatment Note Visit Start Time 11:05 Visit Stop Time 11:45 Total Visit Minutes 40 Visit Number 2 PT-OP-B Current Condition Start: 06/30/20 08:51 Freq: Status: Active Protocol: Document 06/30/20 13:30 AMB (Rec: 06/30/20 14:20 AMB [id number]) Current Condition History of Current Condition Onset Date A few months Current Complaints urge incontinence History of Current Condition Millie describes urge incontinence that came on insidiously. She is not the best historian, sometimes saying that she leaks 5x/day, but then other times saying she only voids urine 3x/day. A large trigger for her is washing the dishes. But she also has urgency at other times per day, but is unsure what brings that urgency and then leaking once she gets into the bathroom on. She had one vaginal delivery and denies specific incontinence around the time of or delivery. Treatment Goals Patient/Caregiver Goals stop leaking/urgency Prior Functional Status Baseline Function- ADL's Independent Baseline Function- Mobility Independent Current Functional Impairments (Reported) Functional Limitations- ADL's difficulty washing dishes without running to bathroom. Personal Factors Other Personal Factors That May Effect schizophrenia in remission Therapy/Recovery PT-OP-C Subjective Start: 06/30/20 08:51 Freq: Status: Active Protocol: Document 07/07/20 11:05 AMB (Rec: 07/07/20 11:38 AMB [id number]) OP-PT Subjective Patient Comments Patient Comments Pt reports going to the bathroom only 3x/day and only having a little to void, despite drinking 6 10oz glasses of water per day. PT-OP-I Pelvic Floor Start: 06/30/20 08:51 Freq: Status: Active Protocol: Document 06/30/20 13:30 AMB (Rec: 06/30/20 16:06 AMB [id number]) Pelvic Floor Assessment Urine Pelvic Floor Surgery No Urinary Symptoms Urge Sensation,Incomplete Emptying Leakage Size Small Leakage Cause Urge Other Leakage Causes washing the dishes Leaks Per Day 5 Voiding Frequency 3x/day? Nocturia 3 Pelvic Clock Pelvic Clock 12-3 Atrophy Pelvic Clock 3-6 Atrophy Pelvic Clock 9-12 Atrophy Perineal Descent Resting Absent Bearing Absent Contraction Ability Voluntary Contraction Weak Voluntary Relaxation Moderate Manual Muscle Testing Left 0 Manual Muscle Testing Right 1 Manual Muscle Testing Anterior 1 Manual Muscle Testing Posterior 1 Muscle Endurance (Seconds) 1 Number of Quick Contractions In 10 1 Seconds Comments Pelvic Floor Comments Pt with significant difficulty engaging the pelvic floor muscles, tended to hold breath , use abdominals and use gluteals PT-OP-Q Treatments Start: 06/30/20 08:51 Freq: Status: Active Protocol: Document 07/07/20 11:05 AMB (Rec: 07/07/20 11:38 AMB [id number]) Therapeutic Exercises Supine Exercises 1 Supine Exercise Name quick flicks with sEMG Reps/Minutes 20 Standing Exercises 1 Standing Exercise Name standing long holds PT-OP-T Assessment and Plan Start: 06/30/20 08:51 Freq: Status: Active Protocol: Document 07/07/20 11:05 AMB (Rec: 07/07/20 11:38 AMB [id number]) Physical Therapy Assessment Assessment Summary Assessment Difficult time getting good sEMG numbers as sensor kept falling out. Pt felt it was easier to do kegels in standing than in sitting, good understanding of concept of not using abdominals, but more difficult to put into practice. Physical Therapy Plan Next Visit Focus/Plan Next Note Type Treatment Note Next Visit Plan Urge suppression, biofeedback, review kegels
--- NOTE | 2020-07-14 15:55 | PT.OTN ---
Current Diagnoses Urgency of urination (07/14/20) Chronic fatigue, unspecified (07/14/20) Physical Therapy Treatment Note PT-OP-A Visit Information Start: 06/30/20 08:51 Freq: Status: Active Protocol: Document 07/14/20 11:00 AMB (Rec: 07/14/20 11:46 AMB [id number]) Out-Patient Physical Therapy Visit Information Visit Information Visit Type Treatment Note Visit Start Time 11:00 Visit Stop Time 11:45 Total Visit Minutes 45 Visit Number 3 PT-OP-B Current Condition Start: 06/30/20 08:51 Freq: Status: Active Protocol: Document 06/30/20 13:30 AMB (Rec: 06/30/20 14:20 AMB [id number]) Current Condition History of Current Condition Onset Date A few months Current Complaints urge incontinence History of Current Condition Millie describes urge incontinence that came on insidiously. She is not the best historian, sometimes saying that she leaks 5x/day, but then other times saying she only voids urine 3x/day. A large trigger for her is washing the dishes. But she also has urgency at other times per day, but is unsure what brings that urgency and then leaking once she gets into the bathroom on. She had one vaginal delivery and denies specific incontinence around the time of or delivery. Treatment Goals Patient/Caregiver Goals stop leaking/urgency Prior Functional Status Baseline Function- ADL's Independent Baseline Function- Mobility Independent Current Functional Impairments (Reported) Functional Limitations- ADL's difficulty washing dishes without running to bathroom. Personal Factors Other Personal Factors That May Effect schizophrenia in remission Therapy/Recovery PT-OP-C Subjective Start: 06/30/20 08:51 Freq: Status: Active Protocol: Document 07/14/20 11:00 AMB (Rec: 07/14/20 11:46 AMB [id number]) OP-PT Subjective Patient Comments Patient Comments Pt reports she hasn't been leaking anymore. The urgency is getting better but is still there a bit. Still not urinating as much as she used to and reports she is not fluid restricting. PT-OP-I Pelvic Floor Start: 06/30/20 08:51 Freq: Status: Active Protocol: Document 06/30/20 13:30 AMB (Rec: 06/30/20 16:06 AMB [id number]) Pelvic Floor Assessment Urine Pelvic Floor Surgery No Urinary Symptoms Urge Sensation,Incomplete Emptying Leakage Size Small Leakage Cause Urge Other Leakage Causes washing the dishes Leaks Per Day 5 Voiding Frequency 3x/day? Nocturia 3 Pelvic Clock Pelvic Clock 12-3 Atrophy Pelvic Clock 3-6 Atrophy Pelvic Clock 9-12 Atrophy Perineal Descent Resting Absent Bearing Absent Contraction Ability Voluntary Contraction Weak Voluntary Relaxation Moderate Manual Muscle Testing Left 0 Manual Muscle Testing Right 1 Manual Muscle Testing Anterior 1 Manual Muscle Testing Posterior 1 Muscle Endurance (Seconds) 1 Number of Quick Contractions In 10 1 Seconds Comments Pelvic Floor Comments Pt with significant difficulty engaging the pelvic floor muscles, tended to hold breath , use abdominals and use gluteals PT-OP-Q Treatments Start: 06/30/20 08:51 Freq: Status: Active Protocol: Document 07/14/20 11:00 AMB (Rec: 07/14/20 15:55 AMB [id number]) Therapeutic Exercises Sitting Exercises 1 Sitting Exercise Name roll in/ roll out Reps/Minutes #2 t band Comments 4x10 Standing Exercises 1 Standing Exercise Name standing long holds Reps/Minutes 10 min Comments cues for correct pelvic floor contraction PT-OP-T Assessment and Plan Start: 06/30/20 08:51 Freq: Status: Active Protocol: Document 07/14/20 11:00 AMB (Rec: 07/14/20 15:55 AMB [id number]) Physical Therapy Assessment Assessment Summary Assessment Did not try sEMG today due to sensor issues at last visit, pt reports symptoms are improving, needed extensive review of how to do a kegel, but working more on rectal muscles seemed to help. Physical Therapy Plan Next Visit Focus/Plan Next Note Type Treatment Note Next Visit Plan Urge suppression, biofeedback, review kegels
--- NOTE | 2020-07-21 11:42 | PT.OTN ---
Current Diagnoses Urgency of urination (07/21/20) Chronic fatigue, unspecified (07/21/20) Physical Therapy Treatment Note PT-OP-A Visit Information Start: 06/30/20 08:51 Freq: Status: Active Protocol: Document 07/21/20 11:02 AMB (Rec: 07/21/20 11:22 AMB [id number]) Out-Patient Physical Therapy Visit Information Visit Information Visit Type Treatment Note Visit Start Time 11:00 Visit Stop Time 11:45 Total Visit Minutes 45 Visit Number 4 PT-OP-B Current Condition Start: 06/30/20 08:51 Freq: Status: Active Protocol: Document 06/30/20 13:30 AMB (Rec: 06/30/20 14:20 AMB [id number]) Current Condition History of Current Condition Onset Date A few months Current Complaints urge incontinence History of Current Condition Millie describes urge incontinence that came on insidiously. She is not the best historian, sometimes saying that she leaks 5x/day, but then other times saying she only voids urine 3x/day. A large trigger for her is washing the dishes. But she also has urgency at other times per day, but is unsure what brings that urgency and then leaking once she gets into the bathroom on. She had one vaginal delivery and denies specific incontinence around the time of or delivery. Treatment Goals Patient/Caregiver Goals stop leaking/urgency Prior Functional Status Baseline Function- ADL's Independent Baseline Function- Mobility Independent Current Functional Impairments (Reported) Functional Limitations- ADL's difficulty washing dishes without running to bathroom. Personal Factors Other Personal Factors That May Effect schizophrenia in remission Therapy/Recovery PT-OP-C Subjective Start: 06/30/20 08:51 Freq: Status: Active Protocol: Document 07/21/20 11:02 AMB (Rec: 07/21/20 11:22 AMB [id number]) OP-PT Subjective Patient Comments Patient Comments Pt reported one leak last night, again with urgency, was on the way to the bathroom and didn't make it, leak was small per her report. PT-OP-I Pelvic Floor Start: 06/30/20 08:51 Freq: Status: Active Protocol: Document 06/30/20 13:30 AMB (Rec: 06/30/20 16:06 AMB [id number]) Pelvic Floor Assessment Urine Pelvic Floor Surgery No Urinary Symptoms Urge Sensation,Incomplete Emptying Leakage Size Small Leakage Cause Urge Other Leakage Causes washing the dishes Leaks Per Day 5 Voiding Frequency 3x/day? Nocturia 3 Pelvic Clock Pelvic Clock 12-3 Atrophy Pelvic Clock 3-6 Atrophy Pelvic Clock 9-12 Atrophy Perineal Descent Resting Absent Bearing Absent Contraction Ability Voluntary Contraction Weak Voluntary Relaxation Moderate Manual Muscle Testing Left 0 Manual Muscle Testing Right 1 Manual Muscle Testing Anterior 1 Manual Muscle Testing Posterior 1 Muscle Endurance (Seconds) 1 Number of Quick Contractions In 10 1 Seconds Comments Pelvic Floor Comments Pt with significant difficulty engaging the pelvic floor muscles, tended to hold breath , use abdominals and use gluteals PT-OP-Q Treatments Start: 06/30/20 08:51 Freq: Status: Active Protocol: Document 07/21/20 11:02 AMB (Rec: 07/21/20 11:22 AMB [id number]) Therapeutic Exercises Sitting Exercises 1 Sitting Exercise Name roll in/ roll out Reps/Minutes #2 t band Comments 4x10 Standing Exercises 3 Standing Exercise Name sit to stand Reps/Minutes 10 Comments contract pelvic floor 2 Standing Exercise Name PF with 5# partial squat Reps/Minutes 2x10 1 Standing Exercise Name standing long holds Reps/Minutes 10 min Comments cues for correct pelvic floor contraction PT-OP-T Assessment and Plan Start: 06/30/20 08:51 Freq: Status: Active Protocol: Document 07/21/20 11:02 AMB (Rec: 07/21/20 11:22 AMB [id number]) Physical Therapy Assessment Goals Two Impairment Pelvic floor strength Short Term Goal (STG) Millie will contract her pelvic floor wiht 3/5 strength or greater. STG Duration 4 weeks Supervisor Prop Making Goal (LTG) Millie will contract her pelvic floor for 10 seconds while in standing. LTG Duration MET One Impairment Continence Short Term Goal (STG) Millie will be independent with urge suppression techniques. STG Duration MET Jail Goal (LTG) Millie will be able to wash the dishes without leaking. LTG Duration MET Assessment Summary Assessment Pt going to [place] for a few weeks, will reschedule in August . Standing exercises going well, but PF does fatigue with multiple reps. Pt continues to note that she is only urinating twice during the day and this is new for her. Recommended she follow up with her physician on decreased frequency of urination. Physical Therapy Plan Next Visit Focus/Plan Next Note Type Treatment Note Next Visit Plan Urge suppression, biofeedback, review vinay
--- NOTE | 2020-10-03 15:22 | PT.OPPOC ---
Physical, Occupational & Speech Therapy At [facility] Current Diagnoses Urgency of urination (10/03/20) Chronic fatigue, unspecified (10/03/20) Visit Care Team Role Provider Type Frandy Farooq MD Primary Care Provider Non-Staff Specialty: Family Practice Address: [address] , [address], [place], [address] Email: Sintia Lombardi PA-C Attending Provider Advanced User Interface Artist Referring Provider Specialty: Medical Address: [place], [address] Email: [email or web address] Plan Of Care PT-OP-T Assessment and Plan Start: 06/30/20 08:51 Freq: Status: Active Protocol: Document 10/03/20 14:15 AMB (Rec: 10/03/20 15:11 AMB [id number]) Physical Therapy Assessment Goals Two Impairment Pelvic floor strength Short Term Goal (STG) Millie will contract her pelvic floor wiht 3/5 strength or greater. STG Duration 4 weeks Crm Specialist Goal (LTG) Millie will contract her pelvic floor for 10 seconds while in standing. LTG Duration MET One Impairment Continence Short Term Goal (STG) Millie will be independent with urge suppression techniques. STG Duration MET [facility] Goal (LTG) Millie will be able to wash the dishes without leaking. LTG Duration MET Assessment Summary Assessment Going to the bathroom 4x/day and more in the evening. Leaking in the evening, but it 's a small leak when she gets into the bathroom. Hasn't really kept up with her exercises very well. Therefore will benefit from 1 more appointment to recheck on overall function. Millie did not retain the urge suppression techniques very well, so will need to check in with if she has been able to continue with that this round or not. Physical Therapy Plan Frequency and Duration Frequency of Treatment Every Other Week Duration of Treatment 8 weeks Plan of Care Start Date 10/03/20 Plan of Care End Date 11/28/20 Therapeutic Interventions Therapeutic Interventions Home Exercise Program,Manual Therapy,Neuromuscular Re- education,Self-Care/Home Management,Therapeutic Activities,Therapeutic Exercises Modalities Biofeedback,Electric Stimulation Next Visit Focus/Plan Next Note Type Treatment Note Next Visit Plan Urge suppression, biofeedback, review vinay Plan of Care Dates Plan of Care Start Date 10/03/20 Plan of Care End Date 11/28/20 Electronically Signed by: Nadja Manjarrez, PT 10/03/20 1522 Please Sign and Return: I have reviewed this Plan of Care and certify that the skilled therapy services above are required to meet the patient?s needs. Physician Signature Date Printed Name and Credentials Clinical Instructor Signature Printed Name and Credentials
--- NOTE | 2020-10-03 15:22 | PT.OTN ---
Current Diagnoses Urgency of urination (10/03/20) Chronic fatigue, unspecified (10/03/20) Physical Therapy Treatment Note PT-OP-A Visit Information Start: 06/30/20 08:51 Freq: Status: Active Protocol: Document 10/03/20 14:15 AMB (Rec: 10/03/20 15:11 AMB [id number]) Out-Patient Physical Therapy Visit Information Visit Information Visit Type Progress Note Visit Start Time 14:15 Visit Stop Time 15:00 Total Visit Minutes 45 Visit Number 5 PT-OP-B Current Condition Start: 06/30/20 08:51 Freq: Status: Active Protocol: Document 06/30/20 13:30 AMB (Rec: 06/30/20 14:20 AMB [id number]) Current Condition History of Current Condition Onset Date A few months Current Complaints urge incontinence History of Current Condition Millie describes urge incontinence that came on insidiously. She is not the best historian, sometimes saying that she leaks 5x/day, but then other times saying she only voids urine 3x/day. A large trigger for her is washing the dishes. But she also has urgency at other times per day, but is unsure what brings that urgency and then leaking once she gets into the bathroom on. She had one vaginal delivery and denies specific incontinence around the time of or delivery. Treatment Goals Patient/Caregiver Goals stop leaking/urgency Prior Functional Status Baseline Function- ADL's Independent Baseline Function- Mobility Independent Current Functional Impairments (Reported) Functional Limitations- ADL's difficulty washing dishes without running to bathroom. Personal Factors Other Personal Factors That May Effect schizophrenia in remission Therapy/Recovery PT-OP-C Subjective Start: 06/30/20 08:51 Freq: Status: Active Protocol: Document 10/03/20 14:15 AMB (Rec: 10/03/20 15:11 AMB [id number]) OP-PT Subjective Patient Comments Patient Comments Pt reports she had decreased leaking but then stopped doing her exercises when she was in [place] and has noticed more leaking again (small leak). Is voiding more frequently in the day (4x). PT-OP-I Pelvic Floor Start: 06/30/20 08:51 Freq: Status: Active Protocol: Document 06/30/20 13:30 AMB (Rec: 06/30/20 16:06 AMB [id number]) Pelvic Floor Assessment Urine Pelvic Floor Surgery No Urinary Symptoms Urge Sensation,Incomplete Emptying Leakage Size Small Leakage Cause Urge Other Leakage Causes washing the dishes Leaks Per Day 5 Voiding Frequency 3x/day? Nocturia 3 Pelvic Clock Pelvic Clock 12-3 Atrophy Pelvic Clock 3-6 Atrophy Pelvic Clock 9-12 Atrophy Perineal Descent Resting Absent Bearing Absent Contraction Ability Voluntary Contraction Weak Voluntary Relaxation Moderate Manual Muscle Testing Left 0 Manual Muscle Testing Right 1 Manual Muscle Testing Anterior 1 Manual Muscle Testing Posterior 1 Muscle Endurance (Seconds) 1 Number of Quick Contractions In 10 1 Seconds Comments Pelvic Floor Comments Pt with significant difficulty engaging the pelvic floor muscles, tended to hold breath , use abdominals and use gluteals PT-OP-Q Treatments Start: 06/30/20 08:51 Freq: Status: Active Protocol: Document 10/03/20 14:15 AMB (Rec: 10/03/20 15:21 AMB [id number]) Therapeutic Exercises Sitting Exercises 2 Sitting Exercise Name quick flicks and long holds Standing Exercises 3 Standing Exercise Name sit to stand Reps/Minutes 10 Comments contract pelvic floor 2 Standing Exercise Name PF with 5# partial squat Reps/Minutes 2x10 1 Standing Exercise Name standing long holds Reps/Minutes 10 min Comments cues for correct pelvic floor contraction PT-OP-T Assessment and Plan Start: 06/30/20 08:51 Freq: Status: Active Protocol: Document 10/03/20 14:15 AMB (Rec: 10/03/20 15:11 AMB [id number]) Physical Therapy Assessment Goals Two Impairment Pelvic floor strength Short Term Goal (STG) Millie will contract her pelvic floor wiht 3/5 strength or greater. STG Duration 4 weeks Occupational Health Professional Goal (LTG) Millie will contract her pelvic floor for 10 seconds while in standing. LTG Duration MET One Impairment Continence Short Term Goal (STG) Millie will be independent with urge suppression techniques. STG Duration MET [facility] Goal (LTG) Millie will be able to wash the dishes without leaking. LTG Duration MET Assessment Summary Assessment Going to the bathroom 4x/day and more in the evening. Leaking in the evening, but it 's a small leak when she gets into the bathroom. Hasn't really kept up with her exercises very well. Therefore will benefit from 1 more appointment to recheck on overall function. Millie did not retain the urge suppression techniques very well, so will need to check in with if she has been able to continue with that this round or not. Physical Therapy Plan Frequency and Duration Frequency of Treatment Every Other Week Duration of Treatment 8 weeks Plan of Care Start Date 10/03/20 Plan of Care End Date 11/28/20 Therapeutic Interventions Therapeutic Interventions Home Exercise Program,Manual Therapy,Neuromuscular Re- education,Self-Care/Home Management,Therapeutic Activities,Therapeutic Exercises Modalities Biofeedback,Electric Stimulation Next Visit Focus/Plan Next Note Type Treatment Note Next Visit Plan Urge suppression, biofeedback, review vinay
--- NOTE | 2020-11-10 13:45 | PT.OTN ---
Current Diagnoses Urgency of urination (11/10/20) Chronic fatigue, unspecified (11/10/20) Physical Therapy Treatment Note PT-OP-A Visit Information Start: 06/30/20 08:51 Freq: Status: Active Protocol: Document 11/10/20 12:59 AMB (Rec: 11/10/20 13:34 AMB [id number]) Out-Patient Physical Therapy Visit Information Visit Information Visit Type Treatment Note Visit Start Time 13:00 Visit Stop Time 13:45 Total Visit Minutes 45 Visit Number 6 PT-OP-B Current Condition Start: 06/30/20 08:51 Freq: Status: Active Protocol: Document 06/30/20 13:30 AMB (Rec: 06/30/20 14:20 AMB [id number]) Current Condition History of Current Condition Onset Date A few months Current Complaints urge incontinence History of Current Condition Millie describes urge incontinence that came on insidiously. She is not the best historian, sometimes saying that she leaks 5x/day, but then other times saying she only voids urine 3x/day. A large trigger for her is washing the dishes. But she also has urgency at other times per day, but is unsure what brings that urgency and then leaking once she gets into the bathroom on. She had one vaginal delivery and denies specific incontinence around the time of or delivery. Treatment Goals Patient/Caregiver Goals stop leaking/urgency Prior Functional Status Baseline Function- ADL's Independent Baseline Function- Mobility Independent Current Functional Impairments (Reported) Functional Limitations- ADL's difficulty washing dishes without running to bathroom. Personal Factors Other Personal Factors That May Effect schizophrenia in remission Therapy/Recovery PT-OP-C Subjective Start: 06/30/20 08:51 Freq: Status: Active Protocol: Document 11/10/20 12:59 AMB (Rec: 11/10/20 13:34 AMB [id number]) OP-PT Subjective Patient Comments Patient Comments No leaks in the last couple of weeks. Patient Reported Progress Improving PT-OP-I Pelvic Floor Start: 06/30/20 08:51 Freq: Status: Active Protocol: Document 06/30/20 13:30 AMB (Rec: 06/30/20 16:06 AMB [id number]) Pelvic Floor Assessment Urine Pelvic Floor Surgery No Urinary Symptoms Urge Sensation,Incomplete Emptying Leakage Size Small Leakage Cause Urge Other Leakage Causes washing the dishes Leaks Per Day 5 Voiding Frequency 3x/day? Nocturia 3 Pelvic Clock Pelvic Clock 12-3 Atrophy Pelvic Clock 3-6 Atrophy Pelvic Clock 9-12 Atrophy Perineal Descent Resting Absent Bearing Absent Contraction Ability Voluntary Contraction Weak Voluntary Relaxation Moderate Manual Muscle Testing Left 0 Manual Muscle Testing Right 1 Manual Muscle Testing Anterior 1 Manual Muscle Testing Posterior 1 Muscle Endurance (Seconds) 1 Number of Quick Contractions In 10 1 Seconds Comments Pelvic Floor Comments Pt with significant difficulty engaging the pelvic floor muscles, tended to hold breath , use abdominals and use gluteals PT-OP-Q Treatments Start: 06/30/20 08:51 Freq: Status: Active Protocol: Document 11/10/20 13:00 AMB (Rec: 11/10/20 13:44 AMB [id number]) Therapeutic Exercises Sitting Exercises 2 Sitting Exercise Name quick flicks and long holds Standing Exercises 3 Standing Exercise Name sit to stand Reps/Minutes 10 Comments contract pelvic floor 1 Standing Exercise Name standing long holds Reps/Minutes 10 min Comments cues for correct pelvic floor contraction PT-OP-T Assessment and Plan Start: 06/30/20 08:51 Freq: Status: Active Protocol: Document 11/10/20 12:59 AMB (Rec: 11/10/20 13:34 AMB [id number]) Physical Therapy Assessment Goals Two Impairment Pelvic floor strength Short Term Goal (STG) Millie will contract her pelvic floor wiht 3/5 strength or greater. STG Duration MET Nursing Home Goal (LTG) Millie will contract her pelvic floor for 10 seconds while in standing. LTG Duration MET One Impairment Continence Short Term Goal (STG) Millie will be independent with urge suppression techniques. STG Duration MET Distillation Operator Goal (LTG) Millie will be able to wash the dishes without leaking. LTG Duration MET Assessment Summary Assessment Millie has not had any recent leaks or urge. She needed significant cues on her exercises that she has been doing throughout physical therapy. I am concerned about her ability to continue with exercises independently, given her difficulty being consistent and independent. Reviewed exercises in depth today and at least at this point, Millie does seem to have a good understanding of what to do and a reduction in her symptoms. Physical Therapy Plan Discharge Physical Therapy Discharge Reasons Goals Met
== END 2020-11-10 14:50 | disposition home or self-care (01) ==
LOC: PHYS 13:00
PROVIDERS: PCP Family Medicine; Referring Provider Physician Assistant; Visit Provider Physician Assistant
DX: R39.15 Urgency of urination (principal); R53.82 Chronic fatigue, unspecified
CPT/HCPCS: 97110; 97161

== ENCOUNTER → 2021-01-05 14:00 | Outpatient (CLI) | payer MEDICARE, SELFPAY ==
[2019-04-11 18:56] VITALS: BMI 24.5
[2021-01-05 18:36] LABS: Add Manual Diff / Slide Review NO; Basophils Absolute Auto 0 /uL (0-100); Basophils Percent Auto 0.6 % (0-2); Eosinophils Absolute Auto 100 /uL (0-450); Eosinophils Percent Auto 2.4 % (2-4); Hematocrit 44.6 % (36-46); Lymphocytes Absolute Auto 500 /uL (1100-4500); Lymphocytes Percent Auto 10.5 % (25-40); Mean Corpuscular HGB Conc 33.6 % (30-36); Mean Corpuscular Hemoglobin 33.4 PG (26-34); Mean Corpuscular Volume 99.3 fL (80-100); Monocytes Absolute Auto 300 /uL (0-900); Monocytes Percent Auto 5.8 % (3-14); Neutrophils Absolute Auto 4000 /uL (1500-7000); Neutrophils Percent Auto 80.7 % (50-75); Platelet Count 203 X10^3/uL (150-400); Red Blood Cell Count 4.49 X10^6/uL (4.0-5.2); Red Cell Distribution Width 13.6 % (11.6-14.8); White Blood Cell Count 4.9 X10^3/uL (4.5-11.0)
[2021-01-05 18:58] LABS: Alanine Aminotransferase 17 IU/L (<35); Albumin 3.9 g/dL (3.5-5.0); Albumin Globulin Ratio 1.4 (1.0-2.8); Alkaline Phosphatase 58 U/L (38-126); Aspartate Aminotransferase 28 IU/L (14-36); BUN Creatinine Ratio 13.4 (6-22); Bilirubin Total 0.5 mg/dL (0.2-1.3); Blood Urea Nitrogen 16 mg/dL (7-17); Calcium 10.6 mg/dL (8.4-10.2); Carbon Dioxide 28 mmol/L (22-32); Chloride 105 mmol/L (98-107); Estimated Glomerular Filt Rate 43.8 mL/min (>60); Globulin 2.7 g/dL (1.7-4.1); Glucose 96 mg/dL (80-110); HEMOLYSIS < 15 (0-50); Potassium 4.7 mmol/L (3.4-5.1); Sodium 139 mmol/L (137-145); Total Protein 6.6 g/dL (6.3-8.2)
== END ==
PROVIDERS: PCP Physician Assistant; Visit Provider Physician Assistant
DX: F20.0 Paranoid schizophrenia (principal); N12 Tubulo-interstitial nephritis, not specified as acute or chronic; Z51.81 Encounter for therapeutic drug level monitoring
CPT/HCPCS: 80053; 85025

== ENCOUNTER → 2021-01-21 11:49 | Outpatient (CLI) | payer MEDICARE, SELFPAY ==
[2019-04-11 18:56] VITALS: BMI 24.5
[2021-01-21 19:19] LABS: Add Manual Diff / Slide Review NO; Basophils Absolute Auto 0 /uL (0-100); Basophils Percent Auto 0.3 % (0-2); Eosinophils Absolute Auto 200 /uL (0-450); Eosinophils Percent Auto 2.8 % (2-4); Hematocrit 41.8 % (36-46); Hemoglobin 13.9 g/dL (12.0-16.0); Lymphocytes Absolute Auto 900 /uL (1100-4500); Lymphocytes Percent Auto 16.6 % (25-40); Mean Corpuscular HGB Conc 33.4 % (30-36); Mean Corpuscular Hemoglobin 33.1 PG (26-34); Mean Corpuscular Volume 99.3 fL (80-100); Monocytes Absolute Auto 500 /uL (0-900); Monocytes Percent Auto 8.8 % (3-14); Neutrophils Absolute Auto 4000 /uL (1500-7000); Neutrophils Percent Auto 71.5 % (50-75); Platelet Count 181 X10^3/uL (150-400); Red Blood Cell Count 4.21 X10^6/uL (4.0-5.2); Red Cell Distribution Width 13.3 % (11.6-14.8); White Blood Cell Count 5.5 X10^3/uL (4.5-11.0)
[2021-01-21 19:33] LABS: Vitamin D 25 Hydroxy (D3) 52.8 ng/mL (30.0-100.0)
[2021-01-21 19:58] LABS: HIV 1 & 2 Ab/Ag 4th Gen Combo NEGATIVE (NEGATIVE)
[2021-01-23 04:21] LABS: Calcium 9.7 mg/dL (8.7-10.3); Parathyroid Hormone, Intact 90 pg/mL (15-65)
== END ==
PROVIDERS: PCP Physician Assistant; Visit Provider Physician Assistant
DX: M81.0 Age-related osteoporosis without current pathological fracture (principal); D72.810 Lymphocytopenia
CPT/HCPCS: 82306; 82310; 83970; 85025; 87389; 87522

== ENCOUNTER → 2021-02-04 11:06 | Outpatient (CLI) | payer MEDICARE, SELFPAY ==
[2019-04-11 18:56] VITALS: BMI 24.5
[2021-02-04 19:54] LABS: Alanine Aminotransferase 18 IU/L (<35); Albumin Globulin Ratio 1.4 (1.0-2.8); Alkaline Phosphatase 65 U/L (38-126); Aspartate Aminotransferase 30 IU/L (14-36); BUN Creatinine Ratio 17.6 (6-22); Bilirubin Total 0.8 mg/dL (0.2-1.3); Blood Urea Nitrogen 16 mg/dL (7-17); Calcium 10.6 mg/dL (8.4-10.2); Carbon Dioxide 32 mmol/L (22-32); Chloride 104 mmol/L (98-107); Estimated Glomerular Filt Rate 59.6 mL/min (>60); Globulin 2.9 g/dL (1.7-4.1); Glucose 93 mg/dL (80-110); HEMOLYSIS 16 (0-50); Potassium 4.2 mmol/L (3.4-5.1); Sodium 139 mmol/L (137-145); Total Protein 6.9 g/dL (6.3-8.2)
== END ==
PROVIDERS: PCP Physician Assistant; Visit Provider Physician Assistant
DX: E34.9 Endocrine disorder, unspecified (principal); E83.52 Hypercalcemia
CPT/HCPCS: 80053

== ENCOUNTER → 2022-02-01 13:19 | Outpatient (CLI) | payer MEDICARE, SELFPAY ==
[2019-04-11 18:56] VITALS: BMI 24.5
--- NOTE | 2022-02-01 | DI.MG.S_ITS ---
UNILATERAL LEFT DIGITAL DIAGNOSTIC MAMMOGRAM 3D/2D WITH ADDITIONAL VIEWS: 02/01/2022 CLINICAL: Additional evaluation requested from prior study. Comparison is made to exams dated: 11/18/2021 mammogram - outside location and 07/16/2016 mammogram - [facility]. There are scattered areas of fibroglandular density in the left breast (category b / 25%-50% glandular tissue). There is possible architectural distortion in the left breast at 11 o'clock anterior depth. This is not seen in additional views. No other significant masses or calcifications are seen in the breast. IMPRESSION: BENIGN There is no mammographic evidence of malignancy. The possible architectural distortion in the left breast is consistent with overlapping fibroglandular tissue and is benign. Exam findings were conveyed to the patient. A 1 year screening mammogram is recommended. This exam was interpreted at Station ID: [id number]. NOTE: For mammograms, a report in lay terms will be sent to the patient. Approximately 15% of breast malignancies will not be visualized mammographically. In the management of a palpable breast mass, a negative mammogram must not discourage biopsy of a clinically suspicious lesion. Electronically Signed By: Anthony Castaneda M.D. slc/:02/01/2022 14:01:08 letter sent: Normal Exam ACR BI-RADS Category 2: Benign Finding(s) 3342F
== END ==
PROVIDERS: PCP Physician Assistant; Referring Provider Physician Assistant; Visit Provider Physician Assistant
DX: R92.8 Other abnormal and inconclusive findings on diagnostic imaging of breast (principal)
CPT/HCPCS: 77065; G0279

== ENCOUNTER → 2022-03-18 09:27 | Outpatient (CLI) | payer MEDICARE, SELFPAY ==
[2019-04-11 18:56] VITALS: BMI 24.5
[2022-03-18 11:33] LABS: Add Manual Diff / Slide Review NO; Basophils Absolute Auto 0 /uL (0-100); Basophils Percent Auto 0.3 % (0-2); Eosinophils Absolute Auto 100 /uL (0-450); Eosinophils Percent Auto 2.1 % (2-4); Hematocrit 45.6 % (36-46); Hemoglobin 15.1 g/dL (12.0-16.0); Lymphocytes Absolute Auto 1300 /uL (1100-4500); Mean Corpuscular Hemoglobin 32.1 PG (26-34); Mean Corpuscular Volume 97.3 fL (80-100); Monocytes Absolute Auto 500 /uL (0-900); Monocytes Percent Auto 9.3 % (3-14); Neutrophils Absolute Auto 3400 /uL (1500-7000); Neutrophils Percent Auto 63.3 % (50-75); Platelet Count 185 X10^3/uL (150-400); Red Blood Cell Count 4.69 X10^6/uL (4.0-5.2); Red Cell Distribution Width 13.3 % (11.6-14.8); White Blood Cell Count 5.4 X10^3/uL (4.5-11.0)
[2022-03-18 12:46] LABS: Alanine Aminotransferase 23 IU/L (<35); Alkaline Phosphatase 77 U/L (38-126); Aspartate Aminotransferase 32 IU/L (14-36); BUN Creatinine Ratio 17.4 (6-22); Bilirubin Total 0.9 mg/dL (0.2-1.3); Blood Urea Nitrogen 16 mg/dL (7-17); Carbon Dioxide 30 mmol/L (22-32); Chloride 101 mmol/L (98-107); Estimated Glomerular Filt Rate > 60 mL/min (>60); Glucose 91 mg/dL (80-110); HEMOLYSIS < 15 (0-50); Potassium 3.9 mmol/L (3.4-5.1); Sodium 138 mmol/L (137-145); Total Protein 7.3 g/dL (6.3-8.2)
[2022-03-18 13:06] LABS: Ferritin 53 ng/mL (11-264)
[2022-03-18 13:20] LABS: Vitamin B12 743 pg/mL (239-931)
[2022-03-19 17:15] LABS: Albumin 4.4 g/dL (3.5-5.0); Albumin Globulin Ratio 1.5 (1.0-2.8); Globulin 2.9 g/dL (1.7-4.1)
[2022-03-23 07:37] LABS: Parathyroid Hormone Int 106 pg/mL (15-65)
== END ==
PROVIDERS: PCP Physician Assistant; Referring Provider Physician Assistant; Visit Provider Physician Assistant
DX: M54.9 Dorsalgia, unspecified (principal); I50.21 Acute systolic (congestive) heart failure; D72.810 Lymphocytopenia; E34.9 Endocrine disorder, unspecified
CPT/HCPCS: 36415; 80053; 82607; 82728; 83970; 84443; 85025

== ENCOUNTER → 2022-12-13 09:29 | Outpatient (CLI) | payer MEDICARE, SELFPAY ==
[2019-04-11 18:56] VITALS: BMI 24.5
[2022-12-13 19:32] LABS: Appearance Urine UA SL CLOUDY; Bilirubin Urine UA NEGATIVE (NEGATIVE); Color Urine UA YELLOW; Glucose Urine UA NEGATIVE (Negative); Ketones Urine UA NEGATIVE (NEGATIVE); Leukocyte Esterase Urine UA NEGATIVE (NEGATIVE); Nitrite Urine UA NEGATIVE (Negative); Occult Blood Urine UA NEGATIVE (Negative); Protein Urine UA 1+ (Negative); Specific Gravity Urine UA 1.025 (1.000-1.035)
[2022-12-13 19:45] LABS: Bacteria Urine None Seen; Culture Indicated Urine Cult Not Indicated; Hyaline Casts Urine 0-1/LPF; RBC Urine None Seen (0-5/HPF); Squamous Epithelial Cell Urine 0-1 /HPF (0-5/HPF); WBC Urine 0-1/HPF (0-5/HPF)
== END ==
PROVIDERS: PCP Physician Assistant; Visit Provider Physician Assistant
DX: R33.9 Retention of urine, unspecified (principal); Z91.81 History of falling
CPT/HCPCS: 81001

== ENCOUNTER 2022-12-13 14:04 | Observation (INO) | payer MEDICARE, SELFPAY ==
[2019-04-11 18:56] VITALS: BMI 24.5
[2022-12-13] VITALS (18 sets, daily range): BP systolic 167–234; BP diastolic 76–119; PULSE 78–93; RESP 16–26; TEMP 36.7–37.4; O2SAT 92–97; BMI 24.1; BMI 23.4
[2022-12-13 15:16] LABS: Add Manual Diff / Slide Review NO; Basophils Absolute Auto 0 /uL (0-100); Basophils Percent Auto 0.4 % (0-2); Eosinophils Absolute Auto 0 /uL (0-450); Eosinophils Percent Auto 0.2 % (2-4); Hematocrit 44.6 % (36-46); Hemoglobin 15.1 g/dL (12.0-16.0); Lymphocytes Absolute Auto 1000 /uL (1100-4500); Mean Corpuscular HGB Conc 33.9 % (30-36); Mean Corpuscular Hemoglobin 32.9 PG (26-34); Monocytes Absolute Auto 800 /uL (0-900); Monocytes Percent Auto 10.6 % (3-14); Neutrophils Absolute Auto 5700 /uL (1500-7000); Neutrophils Percent Auto 75.8 % (50-75); Platelet Count 199 X10^3/uL (150-400); Red Cell Distribution Width 13.3 % (11.6-14.8); White Blood Cell Count 7.5 X10^3/uL (4.5-11.0)
[2022-12-13 15:19] LABS: INR 1.1 (0.9-1.3); Prothrombin Time 12.6 SECONDS (10.1-12.7)
[2022-12-13 15:25] LABS: Alanine Aminotransferase 20 IU/L (<35); Albumin 4.2 g/dL (3.5-5.0); Albumin Globulin Ratio 1.4 (1.0-2.8); Alkaline Phosphatase 65 U/L (38-126); Aspartate Aminotransferase 29 IU/L (14-36); BUN Creatinine Ratio 19.2 (6-22); Bilirubin Total 0.7 mg/dL (0.2-1.3); Blood Urea Nitrogen 19 mg/dL (7-17); Calcium 10.5 mg/dL (8.4-10.2); Carbon Dioxide 26 mmol/L (22-32); Chloride 103 mmol/L (98-107); Estimated Glomerular Filt Rate 57 mL/min (>60); Globulin 2.9 g/dL (1.7-4.1); Glucose 101 mg/dL (80-110); HEMOLYSIS 36 (0-50); Lipase 173 U/L (23-300); Potassium 4.3 mmol/L (3.4-5.1); Sodium 135 mmol/L (137-145); Total Protein 7.1 g/dL (6.3-8.2)
[2022-12-13] MEDS: SODIUM CHLORIDE 0.9% 1,000 ML 1000 ML IV (18:50)
--- NOTE | 2022-12-13 19:35 | ED_ITS ---
HPI - Back Pain/Injury General Chief Complaint: Back Pain/Injury Stated Complaint: fell T-1/back pain Time Seen by Provider: 12/13/22 15:53 Source: patient History of Present Illness HPI Narrative: 82-year-old woman with a history of asthma and schizophrenia with mild tardive dyskinesia fell yesterday at home and hit her left flank against the edge of a dresser. She is complaining of left flank pain and acute urinary retention. She was seen in clinic on [facility] this morning noted to have some bruising over the left flank, straight cath was done and urine does not show any infection. She was sent to [facility] for additional evaluation. She notes that she is having pain at the area of the bruising but no shortness of breath, no thoracic pain, no midline thoracic lumbar or sacral tenderness, no pelvic ring tenderness. She is able to walk. She needed help getting off the floor but aside from that is not complaining of other musculoskeletal issues. She did not hit her head there was no loss of consciousness. She is not on blood thinners Related Data Home Medications Medication Instructions Recorded Confirmed lurasidone 80 mg tablet (Latuda) 80 mg PO QPM 12/13/22 12/13/22 sertraline 50 mg tablet 50 mg PO DAILY 12/13/22 12/13/22 Allergies Allergy/AdvReac Type Severity Reaction Status Date / Time Sulfa (Sulfonamide Allergy Unknown Verified 12/13/22 14:47 Antibiotics) [SULFA (SULFONAMIDE ANTIBIOTICS)] Review of Systems Review of Systems Narrative: Pertinent positive and negative findings as per HPI Patient History Medical History Age-related osteoporosis without current pathological fracture (06/16/16) Basal cell carcinoma of skin of scalp and neck Contusion of thorax, unspecified, initial encounter (~11/06/19) Encounter for removal of sutures Laceration without foreign body of nose, initial encounter (~01/15/20) Laceration without foreign body of scalp, initial encounter (~07/06/19) Schizophrenia Skin lesions Surgical History Status post mastectomy Status post tonsillectomy Social History household members: spouse Smoking Status: Never smoker alcohol intake: never substance use type: does not use Smoking Status: Never smoker alcohol intake frequency: 0-2 drinks per day Substance Use Type: does not use Exam Initial Vital Signs Initial Vital Signs: Vital Signs Temperature 99.4 F 12/13/22 14:33 Pulse Rate 86 12/13/22 14:33 Respiratory Rate 18 12/13/22 14:33 Blood Pressure 217/105 H 12/13/22 14:33 Oxygen Delivery Method Room Air 12/13/22 14:33 General: Healthy appearing, in no acute distress. Able to give a complete and coherent history. Well-nourished well-developed HEENT: Moist mucous membranes, normal sclera with reactive pupils, non voluntary minor movements of the lips and tongue Neck: No midline cervical spine tenderness Respiratory: Lungs are clear to auscultation, no wheezing no rales no rhonchi. Full and symmetrical air movement. No tenderness to palpation of the ribcage or thoracic spine Cardiac: Regular rate and rhythm no murmurs no bruits Abdomen: Soft, nontender, good bowel tones, she complains of some mild left flank pain with a obvious bruise on the left flank. She is not particularly tender over the lumbar spine. There is no pelvic ring tenderness Skin: Warm and dry, no rashes Neurologic: Grossly neurologically intact with no obvious asymmetries or abnormalities. She is full perineal sensation. There is no lower extremity weakness or paresthesia Extremities: No trauma, well perfused Psych: Cooperative, appropriate insight and affect Course Orders Ordered: ED Orders 12/13/22 20:00 CT abdomen pelvis w con Stat 12/13/22 20:34 UA Complete [Urinalysis and Microscopic] Stat Acetaminophen (Acetaminophen 325 Mg Tablet) 650 mg PO Q6H PRN PRN Reason: Fever/Mild Pain (1-3) Hydrocodone Bitart/Acetaminophen (Hydrocodone/Acet 5/325 Tablet) 1 tab PO Q4H PRN PRN Reason: Pain, Moderate (4-6) Hydrocodone Bitart/Acetaminophen (Hydrocodone/Acet 5/325 Tablet) 2 tab PO Q4H PRN PRN Reason: Pain, Severe (7-10) Docusate Sodium (Docusate 100 Mg Capsule) 100 mg PO BID RANJIT Hydromorphone HCl (Hydromorphone 0.5 Mg Inj) 0.5 mg IV Q2H PRN PRN Reason: Pain, Severe (7-10) Lorazepam (Lorazepam 2 Mg/Ml Inj) 0.25 mg IV Q4HR PRN PRN Reason: Anxiety Naloxone HCl (Naloxone 0.4 Mg/Ml Vial) 0.2 mg IV Q2MIN PRN PRN Reason: Opiate Reversal Lurasidone [Latuda] (80 Mg Tablet)) 80 mg PO QPM RANJIT Ondansetron HCl (Ondansetron 4 Mg Odt) 4 mg PO NOW PRN PRN Reason: Nausea And Vomiting Ondansetron HCl (Ondansetron 4 Mg/2 Ml Inj) 4 mg IV NOW PRN PRN Reason: Nausea And Vomiting Sertraline HCl (Sertraline 50 Mg Tablet) 50 mg PO DAILY RANJIT Sodium Chloride (Sodium Chloride 0.9% Flush) 10 ml IV PRN PRN PRN Reason: Flush Sodium Chloride (Sodium Chloride 0.9% Flush) 10 ml IV BID RANJIT Discontinued Medications Hydralazine HCl (Hydralazine 20 Mg/Ml Vial) 10 mg IV NOW ONE Stop: 12/13/22 20:46 Last Admin: 12/13/22 20:49 Dose: 10 mg Documented By: SABIHA Hydromorphone HCl (Hydromorphone 0.5 Mg Inj) 0.5 mg IV NOW ONE Stop: 12/13/22 21:36 Last Admin: 12/13/22 21:48 Dose: 0.5 mg Documented By: JOSE Sodium Chloride (Normal Saline 0.9%) 1,000 mls @ 1,000 mls/hr IV BOLUS ONE Stop: 12/13/22 16:52 Last Admin: 12/13/22 15:54 Dose: Not Given Documented By: SABIHA Sodium Chloride (Normal Saline 0.9%) 1,000 mls @ 1,000 mls/hr IV BOLUS ONE Stop: 12/13/22 16:52 Sodium Chloride (Normal Saline 0.9%) 1,000 mls @ 1,000 mls/hr IV BOLUS ONE Stop: 12/13/22 16:55 Last Infusion: 12/13/22 20:34 Dose: Infused Documented By: Admin: 12/13/22 18:50 Dose: 1,000 mls/hr Documented By: RB Ketorolac Tromethamine (Ketorolac 30 Mg/Ml Vial) 15 mg IV NOW ONE Stop: 12/13/22 21:36 Last Admin: 12/13/22 21:48 Dose: 15 mg Documented By: SB Vital Signs Vital signs: Vital Signs - 8 hr 12/13/22 20:30 12/13/22 20:31 12/13/22 20:31 Pulse Rate 85 87 Respiratory Rate 16 Blood Pressure 231/119 H Pulse Oximetry 94 94 Oxygen Delivery Method Room Air 12/13/22 20:39 12/13/22 20:40 12/13/22 20:40 Pulse Rate 82 88 Respiratory Rate Blood Pressure 234/114 H Pulse Oximetry 94 95 Oxygen Delivery Method Room Air 12/13/22 20:49 12/13/22 21:00 12/13/22 21:01 Pulse Rate 80 89 89 Respiratory Rate 16 Blood Pressure 234/114 H Pulse Oximetry 95 95 Oxygen Delivery Method Room Air 12/13/22 21:01 12/13/22 21:28 12/13/22 21:28 Pulse Rate 92 H Respiratory Rate Blood Pressure 231/91 H 216/92 H Pulse Oximetry 96 Oxygen Delivery Method 12/13/22 21:30 12/13/22 21:30 12/13/22 21:40 Pulse Rate 87 92 H Respiratory Rate Blood Pressure 215/95 H Pulse Oximetry 96 97 Oxygen Delivery Method 12/13/22 21:42 12/13/22 21:48 12/13/22 21:48 Pulse Rate 93 H Respiratory Rate Blood Pressure 226/102 H 234/103 H Pulse Oximetry 96 Oxygen Delivery Method 12/13/22 21:57 12/13/22 21:57 12/13/22 21:57 Pulse Rate 85 87 Respiratory Rate 16 Blood Pressure 229/100 H 229/100 H Pulse Oximetry 94 Oxygen Delivery Method Room Air 12/13/22 22:00 12/13/22 22:00 Pulse Rate 85 Respiratory Rate 26 H Blood Pressure 215/92 H Pulse Oximetry 92 Oxygen Delivery Method Room Air MDM - Back Pain/Injury Lab Data 12/13/22 15:00 12/13/22 15:00 Labs: Lab Results 12/13/22 Range/Units 15:00 WBC 7.5 (4.5-11.0) X10^3/uL RBC 4.60 (4.0-5.2) X10^6/uL Hgb 15.1 (12.0-16.0) g/dL Hct 44.6 (36-46) % MCV 97.0 (80-100) fL MCH 32.9 (26-34) PG MCHC 33.9 (30-36) % RDW 13.3 (11.6-14.8) % Plt Count 199 (150-400) X10^3/uL Neut % (Auto) 75.8 H (50-75) % Lymph % (Auto) 13.0 L (25-40) % [place] % (Auto) 10.6 (3-14) % Eos % (Auto) 0.2 L (2-4) % Baso % (Auto) 0.4 (0-2) % Neut # (Auto) 5700 (3454-0629) /uL Lymph # (Auto) 1000 L (8954-7549) /uL [place] # (Auto) 800 (0-900) /uL Eos # (Auto) 0 (0-450) /uL Baso # (Auto) 0 (0-100) /uL PT 12.6 (10.1-12.7) SECONDS INR 1.1 (0.9-1.3) Sodium 135 L (137-145) mmol/L Potassium 4.3 (3.4-5.1) mmol/L Chloride 103 (98-107) mmol/L Carbon Dioxide 26 (22-32) mmol/L BUN 19 H (7-17) mg/dL Creatinine 0.99 (0.52-1.04) mg/dL Estimated GFR 57 L (>60) mL/min BUN/Creatinine Ratio 19.2 (6-22) Glucose 101 (80-110) mg/dL Calcium 10.5 H (8.4-10.2) mg/dL Total Bilirubin 0.7 (0.2-1.3) mg/dL AST 29 (14-36) IU/L ALT 20 (<35) IU/L Alkaline Phosphatase 65 (38-126) U/L Total Protein 7.1 (6.3-8.2) g/dL Albumin 4.2 (3.5-5.0) g/dL Globulin 2.9 (1.7-4.1) g/dL Albumin/Globulin Ratio 1.4 (1.0-2.8) Lipase 173 (23-300) U/L [facility] Narrative Medical decision making narrative: CC: Fall 24 hours ago, flank pain acute urinary retention Complicating co-morbidities: Asthma Data collected from: patient, Social determinants of health that may influence the patients condition: They do live on [facility] and accessing medical care can be challenging Medical records reviewed: Notes from physician who saw her this morning on [facility] are reviewed Differential considered: Rib fractures, spine fracture, cauda equina syndrome, retroperitoneal bleeding, intra-abdominal trauma Exam documented above, pertinent findings include: Pleasant, not complaining of pain bruising over the left flank Lab Test results independently reviewed as above. Pertinent findings: Chemistries are fairly reassuring slightly elevated calcium at 10.5. Otherwise normal electrolytes and renal function. CBC is unremarkable, no acute anemia PT and PTT are unremarkable Independently reviewed EKG sinus rhythm, occasional PAC, LVH with minor repolarization abnormalities but no acute ischemia Imaging studies independently reviewed: CT scan of the abdomen shows acute fractures of left 10 11 and 12 ribs consistent with the ecchymosis. There is no hemopneumothorax and remainder of abdominal study is benign Re-evaluations: Blood pressures remain significantly elevated with no prior history of hypertension. She is given a dose of IV hydralazine and pain is addressed with parenteral medications Discussion: Findings reviewed with patient and her . She is finding the pain increasingly difficult and moving challenging. We will have respiratory therapy set her up with an incentive spirometer and instructions on use. At 84 with 3 rib fractures and intractable pain significant enough that it is causing severe blood pressure elevations will recommend hospitalization for pain control. Care is reviewed with Dr. Esparza who agrees with admit Discharge Plan Departure Patient Disposition: Admitted as Observation Clinical Impression: Intractable pain, Paranoid schizophrenia in remission, Elevated BP without diagnosis of hypertension Multiple fractures of ribs Qualifiers: Encounter type: initial encounter Fracture type: closed Laterality: left Q ualified Code(s): S22.42XA - Multiple fractures of ribs, left side, initial encounter for closed fracture Admit Date/Time: 12/13/22 22:11 Admit Provider: Steven Esparza
--- NOTE | 2022-12-13 20:00 | DI.CT.S_ITS ---
PROCEDURE: CT ABDOMEN PELVIS W CON INDICATIONS: trauma, fall, left flank contusion. acute urinary retention TECHNIQUE: After the administration of intravenous contrast, axial sections acquired from the lung bases to the pubic symphysis. Coronal and sagittal reformats were performed. For radiation dose reduction, the following was used: automated exposure control, adjustment of mA and/or kV according to patient size. COMPARISON: [facility], CT, CT CHEST ABD PEL W CON, 01/10/2020, 9:17. FINDINGS: Lung bases: No pleural effusion. ABDOMEN: Liver: Unremarkable. Gallbladder: Unremarkable. Biliary ducts: Unremarkable. Pancreas: Unremarkable. Spleen: Unremarkable. Adrenal Glands: Unremarkable. Kidneys and Ureters: No hydronephrosis. Stomach and Bowel: No bowel obstruction. Peritoneum: No abnormal intraperitoneal fluid. No free air. Abdominal Nodes: No retroperitoneal or mesenteric adenopathy by size criteria. Vessels: Aorta and inferior vena cava are normal in size. PELVIS: Pelvic Organs: Unremarkable. Bladder: Unremarkable. Pelvic Nodes: No enlarged lymph nodes. Bones: Multilevel degenerative change of the visualized spine. Acute appearing mildly displaced fractures left posterior 12th, posterolateral 11th and 10th ribs IMPRESSION: Acute fractures of the left 10th through 12th ribs. Dictated by: Hi Johnson M.D. on 12/13/2022 at 20:29 Approved by: Hi Johnson M.D. on 12/13/2022 at 20:40
[2022-12-13] MEDS: HYDRALAZINE 20 MG/ML VIAL 10 MG IV (20:49)
[2022-12-13] MEDS: HYDROMORPHONE 0.5 MG INJ IV (21:48)
[2022-12-13] MEDS: KETOROLAC 30 MG/ML VIAL 15 MG IV (21:48)
--- NOTE | 2022-12-13 22:15 | PC.NURSE ---
Pt denies any chest pain, headache, or changes in vision. Provider made aware of patient blood pressure and other vitals. No new order at this time.
--- NOTE | 2022-12-13 23:31 | P.HP_ITS ---
History of Present Illness History of Present Illness Chief complaint: fell T-1/back pain Narrative: 82 years old female with history of schizophrenia, asthma, mild tardive dyskinesia presents to the ER after ground-level fall yesterday at home. The patient lost balance and fell hitting her left flank against the edge of dresser. Denies any loss of consciousness or head injury. Since then she has been complaining of left flank pain and acute urinary retention. Initially the pain was 8 out of 10, sharp, aggravated by movement. CT scan in the ER shows acute fracture of left 10, 11 and 12 ribs consistent with ecchymosis. No pneumothorax noted. Her blood pressure was significantly elevated in the ED and was given hydralazine and pain medications. [facility] Medical History Age-related osteoporosis without current pathological fracture (06/16/16) Basal cell carcinoma of skin of scalp and neck Contusion of thorax, unspecified, initial encounter (~11/06/19) Encounter for removal of sutures Laceration without foreign body of nose, initial encounter (~01/15/20) Laceration without foreign body of scalp, initial encounter (~07/06/19) Schizophrenia Skin lesions Surgical History Status post mastectomy Status post tonsillectomy Social History household members: spouse Smoking Status: Never smoker alcohol intake: never substance use type: does not use Meds Home Medications and Allergies Home Medications Medication Instructions Recorded Confirmed Type lurasidone 80 mg tablet (Latuda) 80 mg PO QPM 12/13/22 12/13/22 History sertraline 50 mg tablet 50 mg PO DAILY 12/13/22 12/13/22 History Allergies Allergy/AdvReac Type Severity Reaction Status Date / Time Sulfa (Sulfonamide Allergy Unknown Verified 12/13/22 14:47 Antibiotics) [SULFA (SULFONAMIDE ANTIBIOTICS)] Review of Systems Review of Systems ROS: Yes All systems reviewed with the patient and are negative except as otherwise documented Constitutional Constitutional: Reports as per HPI and Reports system reviewed and no additional complaints, except as documented Eyes Eyes: Reports as per HPI and Reports system reviewed and no additional complaints, except as documented ENT Ears, Nose, Mouth, and Throat: Yes as per HPI and Yes system reviewed and no additional complaints, except as documented Cardiovascular Cardiovascular: Reports system reviewed and no additional complaints, except as documented Respiratory Respiratory: Reports system reviewed and no additional complaints, except as documented Gastrointestinal Gastrointestinal: Reports system reviewed and no additional complaints, except as documented Genitourinary Genitourinary: Reports system reviewed and no additional complaints, except as documented Musculoskeletal Musculoskeletal: Reports system reviewed and no additional complaints, except as documented, Reports abnormal gait and Reports numbness Neurologic Neurologic: Reports system reviewed and no additional complaints, except as documented, Reports abnormal gait, Reports confusion and Reports numbness Psychiatric Psychiatric: Reports system reviewed and no additional complaints, except as documented and Reports confusion Exam Vital Signs (past 8 hours): - 12/13/22 18:16 12/13/22 20:30 12/13/22 20:31 Temperature Pulse Rate 80 85 Respiratory Rate Blood Pressure 179/110 H 231/119 H Pulse Oximetry 96 94 Oxygen Delivery Method Room Air Oxygen Flow Rate 12/13/22 20:31 12/13/22 20:39 12/13/22 20:40 Temperature Pulse Rate 87 82 Respiratory Rate 16 Blood Pressure 234/114 H Pulse Oximetry 94 94 Oxygen Delivery Method Room Air Room Air Oxygen Flow Rate 12/13/22 20:40 12/13/22 20:49 12/13/22 21:00 Temperature Pulse Rate 88 80 89 Respiratory Rate Blood Pressure 234/114 H Pulse Oximetry 95 95 Oxygen Delivery Method Oxygen Flow Rate 12/13/22 21:01 12/13/22 21:01 12/13/22 21:28 Temperature Pulse Rate 89 92 H Respiratory Rate 16 Blood Pressure 231/91 H Pulse Oximetry 95 96 Oxygen Delivery Method Room Air Oxygen Flow Rate 12/13/22 21:28 12/13/22 21:30 12/13/22 21:30 Temperature Pulse Rate 87 Respiratory Rate Blood Pressure 216/92 H 215/95 H Pulse Oximetry 96 Oxygen Delivery Method Oxygen Flow Rate 12/13/22 21:40 12/13/22 21:42 12/13/22 21:48 Temperature Pulse Rate 92 H Respiratory Rate Blood Pressure 226/102 H 234/103 H Pulse Oximetry 97 Oxygen Delivery Method Oxygen Flow Rate 12/13/22 21:48 12/13/22 21:57 12/13/22 21:57 Temperature Pulse Rate 93 H 85 Respiratory Rate Blood Pressure 229/100 H 229/100 H Pulse Oximetry 96 Oxygen Delivery Method Oxygen Flow Rate 12/13/22 21:57 12/13/22 22:00 12/13/22 22:00 Temperature Pulse Rate 87 85 Respiratory Rate 16 26 H Blood Pressure 215/92 H Pulse Oximetry 94 92 Oxygen Delivery Method Room Air Room Air Oxygen Flow Rate 12/13/22 22:30 12/13/22 22:30 12/13/22 23:12 Temperature 98.1 F Pulse Rate 81 78 Respiratory Rate 21 22 Blood Pressure 167/80 H 186/76 H Pulse Oximetry 92 93 Oxygen Delivery Method Room Air Oxygen Flow Rate 0 Oxygen Delivery Method Room Air Oxygen Flow Rate 0 Const General: cooperative, comfortable and well developed Orientation: alert and oriented x3 HENMT Head: normal to inspection, normocephalic and atraumatic Face and sinus: normal facial exam Mouth: oral mucosae normal and moist mucous membranes Throat: posterior oropharynx normal Eyes General: appearance normal, both eyes and all related structures Pupils: PERRL EOM: EOM intact bilaterally Neck Neck: normal visual inspection and full ROM Chest Chest: normal inspection of the chest Resp Effort & Inspection: normal respiratory effort and able to speak in complete sentences Auscultation: clear to auscultation bilaterally Cardio Palpation: normal PMI Rate: regular rate Rhythm: regular rhythm Heart Sounds: S1 normal and S2 normal GI Inspection: normal to inspection Palpation: soft and no hepatosplenomegaly Auscultation: normal bowel sounds Skin General: no rashes or lesions noted Lesions: no lesions Rashes: no rashes Trauma: no lacerations or abrasions Neuro General: patient alert, patient awake, patient oriented x3 and no focal motor deficits Cranial Nerves: CN's II-XI intact bilaterally Cognition: normal cognition Speech: speech normal Gait: normal gait Motor: muscle tone normal throughout Sensory Exam: no sensory deficits noted Extrem General: full ROM and no calf tenderness Psych Appearance: grossly normal Mental Status: mental status grossly normal Speech and Movement: speech and movement normal Objective Labs 12/13/22 15:00 12/13/22 15:00 Labs: Laboratory Results - last 24 hr 12/13/22 15:00 WBC 7.5 RBC 4.60 Hgb 15.1 Hct 44.6 MCV 97.0 MCH 32.9 MCHC 33.9 RDW 13.3 Plt Count 199 Neut % (Auto) 75.8 H Lymph % (Auto) 13.0 L Carbon % (Auto) 10.6 Eos % (Auto) 0.2 L Baso % (Auto) 0.4 Neut # (Auto) 5700 Lymph # (Auto) 1000 L Carbon # (Auto) 800 Eos # (Auto) 0 Baso # (Auto) 0 PT 12.6 INR 1.1 Sodium 135 L Potassium 4.3 Chloride 103 Carbon Dioxide 26 BUN 19 H Creatinine 0.99 Estimated GFR 57 L BUN/Creatinine Ratio 19.2 Glucose 101 Calcium 10.5 H Total Bilirubin 0.7 AST 29 ALT 20 Alkaline Phosphatase 65 Total Protein 7.1 Albumin 4.2 Globulin 2.9 Albumin/Globulin Ratio 1.4 Lipase 173 Assessment & Plan Assessment and plan (1) Multiple fractures of ribs: Qualifiers: Encounter type: initial encounter Fracture type: closed Laterality: l eft Qualified Code(s): S22.42XA - Multiple fractures of ribs, left side, initial encounter for closed fracture Status: Acute Plan: Incentive spirometry Pain medications as needed Physical therapy in the morning Fall precaution (2) Elevated BP without diagnosis of hypertension: Status: Acute Plan: Most likely due to pain. The patient does not have any history of high blood pressure. -Hydralazine as needed -Pain medications as needed (3) Urinary retention: Status: Acute Plan: Straight catheter as needed (4) Paranoid schizophrenia in remission: Status: Chronic Plan: Restart her home medications Time Spent With Patient Time with patient: 50 to 69 minutes with 50% spent counseling/coordinating care Quality VTE Deep Vein Thrombosis/Pulmonary Embolism Present on Admission: No MIPS - Admit I confirm the patient?s Advance Care Plan is present, Code status is documented, Surrogate decision maker is in patient?s record [If Yes, STOP here]: Yes MIPS - Meds 'Current medications' to include all prescriptions, [id number] products, herbals, cannabis/cannabidiol products, and vitamin/mineral/dietary (nutritional) supplements. I have utilized all available resources to obtain, update, or review the patient?s current medications. [If Yes, STOP here]: Yes
[2022-12-14] VITALS (8 sets, daily range): BP systolic 163–217; BP diastolic 4–135; PULSE 65–88; RESP 16–21; TEMP 36.7–37.3; O2SAT 91–95
[2022-12-14] MEDS: HYDROCODONE/ACET 5/325 TABLET 2 TAB PO ×2 (06:15→20:28)
--- NOTE | 2022-12-14 06:21 | PC.ADMIT ---
[address] Admission Note:Patient brought to room 224 at 2300. A/Ox4, patient has TD, denied pain throughout the night and was able to sleep until 0600, then rated left torso pain 8/10, [place] given per prn orders. BP remains elevated 186/76 and 199/82, other VSS, SpO2 >92% RA, denies difficulty with breathing. 750ml UOP in [place]. The patient,Millie Romano,82 y/o, was given written information regarding hospital policies, unit procedures and contact persons. Patient's smoking status: Never smoker. Vital Signs - 8 hr 12/13/22 22:30 12/13/22 22:30 12/13/22 23:12 Temperature 98.1 F Pulse Rate 81 78 Respiratory Rate 21 22 Blood Pressure 167/80 H 186/76 H Pulse Oximetry 92 93 Oxygen Delivery Method Room Air Oxygen Flow Rate 0 12/13/22 23:30 12/14/22 06:15 Temperature 98.1 F Pulse Rate 72 Respiratory Rate 20 Blood Pressure 199/82 H Pulse Oximetry 92 Oxygen Delivery Method Room Air Oxygen Flow Rate 0
[2022-12-14] MEDS: DOCUSATE 100 MG CAPSULE PO ×2 (10:09→20:28)
[2022-12-14] MEDS: SERTRALINE 50 MG TABLET PO (10:10)
[2022-12-14] MEDS: SODIUM CHLORIDE 0.9% FLUSH 10 ML IV ×2 (10:10→22:27)
--- NOTE | 2022-12-14 10:22 | CM.DANOTE ---
Patient is an 82 yo female who was admitted on 12/13/22 for GLF with rib fxs. Pt has [facility] and [employer] for insurance and her PCP is Sintia Lombardi on [facility]. EMR was reviewed. Per MD, pt with a hx of dx of managed schizophrenia and had GLF with multiple rib fxs and no pneumothorax. No surgical intervention needed. Admitted for pain management and PT/OT. PT/OT pending. SW met bedside with pt and her spouse and explained role and they confirm they live at home on [address] with pt's brother as well. All 3 are quite active and independent at baseline. Pt uses a FWW for longer distances outside of the house. Pt and spouse still drive. Spouse has utilized HH a few years ago and they felt it was helpful. Pt and spouse would be agreeable with HH if needed. DPOA is spouse and also their adult Dtr who lives in [place] but visits often. They only have the one child and no other family local besides pt's brother. Spouse plans to room-in overnight and will provide transport at d/c. TOM Rosenthal kindly made initial [facility] referral as they are the only HH agency that covers [facility] and they will review. F2F completed in anticipation of likely HH. Plan: SW to follow closely for PT/OT eval and recommendations to confirm safe d/c home with spouse assist and new [facility] referral and any further identified discharge planning needs. Pt's currently OBS Status and therefore SNF would not be covered by Medicare at this time. LENARD Purdy Discharge Planning/Care Management CM Discharge Assessment Start: 12/14/22 10:13 Freq: Status: Active Protocol: Document 12/14/22 10:16 BF (Rec: 12/14/22 10:22 [id number]) Discharge Planning Assessment Assigned Noodle Catalyst Maker LENARD Art DPCRYSTAL/Assigned Designee Name spouse and Dtr in [place] Contact Information [phone] Advance Directives? Yes Advance Directives on File No History Provided By Patient,Significant Other, Medical Record Has Patient been admitted in last 30 No days? Prior Living Arrangements House Household Members spouse,family Comment pt's brother also lives with them Type of transporation used prior to Drives own vehicle admit Independent with ADL's Yes Is patient alert and oriented? Yes: mostly Needs Assistance With Managing Medications,Home Chores / Shopping Caregiver for Another No DME Already Rented / Owned FWW / Walker Patient/Family Preference Home with Home Health Barriers to Discharge No Discharge Plan Home with Home Health Transportation Arrangement Spouse bedside and will transport Referrals Initiated Home Health If patient plan is home with home health Yes : Has signed face to face form been completed? Whiteboard Updated in Patient Room with Yes name and ext. # of Noodle Catalyst Maker Review Status In Process Please Provide Date Initial DC 12/14/22 Assessment Was Performed Next Review Type Continued Stay Review
--- NOTE | 2022-12-14 11:10 | OT.IP.EVAL ---
Current Diagnoses Paranoid schizophrenia (12/13/22) Elevated blood-pressure reading, without diagnosis of hypertension (12/13/22) Retention of urine, unspecified (12/13/22) Multiple fractures of ribs, left side, initial encounter for closed fracture (12/13/22) Past Medical History (Last Reviewed 03/22/22 @ 13:25 by Patrice Boyd DO) Age-related osteoporosis without current pathological fracture (06/16/16) Basal cell carcinoma of skin of scalp and neck Contusion of thorax, unspecified, initial encounter (~11/06/19) Encounter for removal of sutures Laceration without foreign body of nose, initial encounter (~01/15/20) Laceration without foreign body of scalp, initial encounter (~07/06/19) Schizophrenia Skin lesions Surgical History (Last Reviewed 03/22/22 @ 13:25 by Patrice Boyd DO) Status post mastectomy Status post tonsillectomy Occupational Therapy Inpatient Evaluation/Re-Eval M1 PT/OT-IP Prior Functional Status Start: 12/14/22 13:43 Freq: NEEDED Status: Active Protocol: Document 12/14/22 10:13 [facility] (Rec: 12/14/22 14:06 [facility] [id number]) Medical Review Prior Functional Status Communication Independent Mobility and Gait Use of SPC and up and down 5 platforms steps to and from the house with a FWW. Activities of Daily Living and IADL's Independent for ADL's, med, and bills. Social History Household Members spouse,family Living Arrangements House Number of Floors (Floors) One Floor Number of Stairs To Enter/Railing? 5 platform steps into and out of the house. Home Environment Standard Height Toilet,Walk in Shower Home Equipment Front Wheel Walker,Straight Cane,Raised Toilet Seat w/ Armrests,Shower Seat with Backrest Additional Social History Comment Pt's also uses a cane to assist and not able to provide physical assist to the pt. M2 OT-IP Current Condition Start: 12/14/22 13:43 Freq: Status: Active Protocol: Document 12/14/22 10:13 [facility] (Rec: 12/14/22 14:06 [facility] [id number]) Occupational Therapy Current Condition Current Condition Evaluation Date 12/14/22 Treatment Diagnosis Acute 10-12th rib fractures Diagnosis Onset Date 12/13/22 Post Operative Precautions Lumbar Precautions Log Roll,No Twisting,Lifting Restriction of 10 lbs M3 OT- IP Subjective and Pain Start: 12/14/22 13:43 Freq: Status: Active Protocol: Document 12/14/22 10:13 [facility] (Rec: 12/14/22 14:06 [facility] [id number]) OT- Subjective Occupational Therapy Visit Comments Patient Comments Pt agreed to get up. Patient/Caregiver Goals TO go home. OT Pain Assessment Pain When Pain Assessed During Mobility Pain Present Pain Present Pain Reported Location Left Lower Back Intensity 8 Scale Used Numeric (0 - 10) M4 OT- IP ADL's Start: 12/14/22 13:43 Freq: Status: Active Protocol: Document 12/14/22 10:13 [facility] (Rec: 12/14/22 14:06 [facility] [id number]) OT LUE-Naid-Ejwqitj Comments OT Self-Feeding Comments Not at meal time. OT ADL-Grooming General Evaluation Grooming Ability Standby Assistance Areas Needing Assistance Retrieving/Set-up of Grooming Items Comments OT Grooming Comments Able to do while standing at the sink with FWW. OT ADL-Oral Care General Eval Oral Care Ability Independent OT ADL-Dressing General Eval Lower Body Dressing Ability Maximum Assistance Areas Needing Assistance Underpants/Brief,Socks Comments OT Dressing Comments Having to have assist, able to show pt use of limehouse worker and sock aid so able to increase her ease and independence with dressing needs. OT ADL-Toileting General Evaluation Toileting Ability Total Assistance Comments OT Toileting Comments [place] in place. OT ADL-Bathing Comments OT Bathing Comments Not performed. Pt states in the past has fallen in the shower while trying to get in and out. Suggested pt have grab bars or have a transfer pole to increase her safety to get into and out of the shower. M5 OT- IP IADL's Start: 12/14/22 13:43 Freq: Status: Active Protocol: Document 12/14/22 10:13 [facility] (Rec: 12/14/22 14:06 [facility] [id number]) OT-Instrumental Activities of Daily Living Deficits IADL Deficits Identified Deficits Home Safety Awareness Awareness of Need for Assistance at Home Good Awareness Ability to Problem Solve Emergency Able to Problem Solve Situations Medication Management Medication Management Comments Pt has no issues prior. Money Management Money Management Comments Pt able to do prior. Meal Preparation Meal Preparation Comments Pt will need assist. Enterprise Systems Manager Enterprise Systems Manager Comments Pt will need assist. Driving Driving Comments Best for pt not to drive due to rib pain and on pain medications. M6 OT- IP Functional Cognition Start: 12/14/22 13:43 Freq: Status: Active Protocol: Document 12/14/22 10:13 [facility] (Rec: 12/14/22 14:06 [facility] [id number]) Cognitive Factors Limiting Selfcare Function Cognitive Ability Level of Alertness Alert Patient Orientation Name,Age,Birthday,Month,Date, Year,Day of Week,Place, Situation Attention Span Ability Capable of Focused Attention, Capable of Sustained Attention Ability to Follow Commands Able to Follow One Step Commands Cognitive Comments Cognitive Assessment Comments Pt appears intact and able to follow directions for ADL's and mobility appropriately at this time. OT- Vision and Hearing OT- Hearing Assessment OT- Hearing Assessment WFL OT- Vision Assessment Visual Acuity WFL M7 OT- IP Mobility and Balance Start: 12/14/22 13:43 Freq: Status: Active Protocol: Document 12/14/22 10:13 [facility] (Rec: 12/14/22 14:06 [facility] [id number]) OT- Bed Mobility Assessment Rolling Level of Assistance Moderate Assistance Supine to Sit Supine to Sit Assist Moderate Assistance Sit to Supine Sit to Supine Assist Standby Assistance OT-Transfer Assessment Sit to and From Stand Sit to and from Stand Contact Guard Assistance Transfers Transfer Ability Standby Assistance Technique Transfer Destination Bed Transfer Technique Stand Step Pivot Devices Transfer Assistive Devices Gait Belt,Straight Cane,Front Wheeled Walker Comments Mobility Comments Pt gets out on the left side of the bed. Pt needing MODA to roll to her left side. Pt states her is able to push her over to roll , but not able to get out of bed to assist otherwise. Once side lying, with increased time , pt able to get to the edge of the bed. CGA to stand to FWW and get to the sink, pt having one loss of balance but able to self correct. On the way back from the sink able to use the SPC with SBA. OT- Balance Assessment Sitting Balance and Reactions Static Sitting Balance Ability Good Dynamic Sitting Balance Ability Fair Standing Balance and Reactions Static Standing Balance Ability Fair Dynamic Standing Balance Ability Fair M8 OT- IP Objective Assessments Start: 12/14/22 13:43 Freq: Status: Active Protocol: Document 12/14/22 10:13 [facility] (Rec: 12/14/22 14:06 [facility] [id number]) OT Gross Range of Motion Upper Extremity Range of Motion ROM Impairments NT due to rib pain OT Strength Comments Strength Comments NT due to rib pain. M9 OT- IP Assessment and Plan Start: 12/14/22 13:43 Freq: Status: Active Protocol: Document 12/14/22 10:13 [facility] (Rec: 12/14/22 14:06 [facility] [id number]) OT Summary Assessment and Plan Potential Rehabilitation Potential Excellent Analytic Complexity at Evaluation Low Summary OT Impairments Pain,Balance,Functional Mobility,Dressing,Toileting, Bathing,Toilet Transfers, Shower Transfers,Activity Tolerance Progress Towards Goals Progressing Toward Goals Assessment Summary Pt MOD complexity and main barriers are pain , steps and now needing MODA for bed mobility and will need assist for dressing and of shoes and socks, and for showering needs .Pt would benefit from home health to assess home safety as pt statess has falling in the shower in the past. Goals Self-Feeding Goal Independent Grooming Goal Independent Dressing Goal Independent,Social Media Intern,Sock Aid Toileting Goal Independent Bathing Goal Independent Toilet Transfer Goal Independent Shower Transfer Goal Independent Days to Meet Goals 5 Frequency of Treatment Frequency Of Treatment Once a Day Treatment Plan OT Treatment Plan ADL Training,Functional Mobility,Patient/Family Education,Discharge Planning Discharge Recommendations OT Discharge Recommendations Home with 20/09 Assist Available,Home Health Home Equipment Needs [facility] would be beneficial. Transportation Needs at Discharge Private Vehicle
--- NOTE | 2022-12-14 15:02 | PT.IIE ---
Current Diagnoses Paranoid schizophrenia (12/13/22) Elevated blood-pressure reading, without diagnosis of hypertension (12/13/22) Retention of urine, unspecified (12/13/22) Multiple fractures of ribs, left side, initial encounter for closed fracture (12/13/22) Surgical History (Last Reviewed 03/22/22 @ 13:25 by Patrice Boyd DO) Status post mastectomy Status post tonsillectomy Medical History (Last Reviewed 03/22/22 @ 13:25 by Patrice Boyd DO) Age-related osteoporosis without current pathological fracture (06/16/16) Basal cell carcinoma of skin of scalp and neck Contusion of thorax, unspecified, initial encounter (~11/06/19) Encounter for removal of sutures Laceration without foreign body of nose, initial encounter (~01/15/20) Laceration without foreign body of scalp, initial encounter (~07/06/19) Schizophrenia Skin lesions Physical Therapy Inpatient Evaluation/Re-Eval M1 PT/OT-IP Prior Functional Status Start: 12/14/22 13:43 Freq: NEEDED Status: Active Protocol: Document 12/14/22 14:20 MB (Rec: 12/14/22 14:58 MB [id number]) Medical Review Prior Functional Status Medical History Reviewed Yes Communication [place], some confusion with PT. She appears to have dentures and constant fasiculations with mouth/dentition and so unsure if she needed modified diet at home Mobility and Gait Use of SPC and up and down 5 platforms steps to and from the house with a FWW. Activities of Daily Living and IADL's Independent for ADL's, med, and bills. Prior Functional Level (Other details) Pt states that she had a fall when bending down to forklift picker leaves off the floor. She has about 1 fall a year. Her has AD and her brother who also lives with them is recovering from a fall as well . Social History Household Members spouse,family Living Arrangements House Number of Floors (Floors) One Floor Number of Stairs To Enter/Railing? 5 platform steps and no consistent railing to enter the house Home Environment Standard Height Toilet,Walk in Shower Home Equipment Front Wheel Walker,Straight Cane Employment Status Retired Additional Social History Comment Pt's also uses a cane to assist and not able to proide physically assist to the pt. Brother is also recovering from a fall. M2 PT-IP Current Condition Start: 12/14/22 14:44 Freq: NEEDED Status: Active Protocol: Document 12/14/22 14:20 MB (Rec: 12/14/22 14:58 MB [id number]) Physical Therapy Current Condition Current Condition Evaluation Date 12/14/22 Treatment Diagnosis Fall and left rib fractures, high pain Onset Date In the past couple of days M3 PT-IP Subjective Start: 12/14/22 14:44 Freq: NEEDED Status: Active Protocol: Document 12/14/22 14:20 MB (Rec: 12/14/22 14:58 MB [id number]) Subjective Physical Therapy Visit Type Type Initial Evaluation Visit Start Time 14:20 Visit Stop Time 14:45 Total Visit Minutes 25 Number of SUPERVISOR FRONT Visits 0 Physical Therapy Visit Comments Patient Comments To go home Therapy Pain Assessment Pain When Pain Assessed During Mobility Pain Present Pain Present Pain Reported Location Left Lower Back Intensity 8 Scale Used Numeric (0 - 10) Description Acute Pain Behaviors Facial Grimacing Pain Management Techniques Re-positioning M4 PT-IP Mobility and Gait Start: 12/14/22 14:44 Freq: NEEDED Status: Active Protocol: Document 12/14/22 14:20 MB (Rec: 12/14/22 14:58 MB [id number]) PT-Bed Mobility Assessment Supine to Sit Supine to Sit Contact Guard Assistance,1 Person Assistance,Head of Bed Elevated,Bedrails Scooting Scooting to Edge of Bed Dependent PT-Transfer Assessment Sit to and From Stand Sit to and from Stand Maximum Assistance,1 Person Assistance,Use of Upper Extremities Equipment Transfer Assistive Device Gait Belt,Front Wheeled Walker Orthotic/Prosthetic Devices or Brace: No Comments Mobility Comments Pt cannot scoot forward once EOB and PT must assist her up to her feet Gait Assessment Gait Gait Assistance Required: Contact Guard Assist,1 Person Assist Distance (Feet) 70 Able to Maintain Weight Bearing Status Yes During Gait Assistive Devices Assistive Device Gait Belt,Front Wheeled Walker Orthotic/Prosthetic Devices or Brace: No Gait Deviations General Gait Pattern Antalgic,Decreased Stride Length,Decreased Feet Clearance,Flexed Trunk Factors Limiting Gait Function Factors Limiting Gait Function Difficulty Following Directions,Pain,Poor Balance, Poor Safety Awareness Comments Gait Comments Pt moves slowly. She declines steps today despite PT cueing her that she does need to try with PT to prepare for d/c home. PT-Balance Assessment Sitting Balance and Reactions Static Sitting Balance Ability Fair Dynamic Sitting Balance Ability Poor Standing Balance and Reactions Static Standing Balance Ability Fair Dynamic Standing Balance Ability Fair Device Used RW M5 PT-IP Objective Assessments Start: 12/14/22 14:44 Freq: NEEDED Status: Active Protocol: Document 12/14/22 14:20 MB (Rec: 12/14/22 14:58 MB [id number]) Orientation Orientation/Cognition Level of Alertness Lethargic Language Function Ability Hard of Hearing Safety Awareness Decreased Safety Awareness Gross Range of Motion Upper Extremity ROM Impairments Defer to OT Lower Extremity ROM Assessment Within Functional Limits Strength Lower Extremity Strength Assessment Within Functional Limits M7 PT-IP Assessment and Plan Start: 12/14/22 14:44 Freq: NEEDED Status: Active Protocol: Document 12/14/22 14:20 MB (Rec: 12/14/22 14:58 MB [id number]) PT Summary Assessment and Plan Potential Rehabilitation Potential Fair Status of Condition at Evaluation Evolving Summary Impairments Pain,Balance,Coordination, Cognition,Bed Mobility, Transfers,Gait,Activity Tolerance Progress Towards Goals Progressing Toward Goals,Slow Progress due to Pain Assessment Summary Pt is an 82 y/o female who fell at her [place] on [place] when reaching down to forklift picker a leaf off of the floor. Her and brother who live with her also use ADs and her brother is also recovering from a fall. Pt presents with [place] APAC[place], trouble with command- following, pain with movement and decreased safety awareness and balance with mobility. Encouraged pt that using a RW inside at this time would be most helpful for her balance and to help manage upright posture to ease rib pain. Pt declines stair training today. Pt would benefit increased assistance at d/c, 24 hour superv and PT. She will benefit from acute PT to improve bed mobility, transfers, gait and to assess steps. At this point, she is more of a SNF-type appearing patient, especially given that her support at home are her elderly and brother who have their own mobility challenges. Goals Bed Mobility Goal Independent Transfer Goal Independent,Front Wheeled Walker Gait Goal Independent,Front Wheel Walker Gait Distance 75 Other Goals Pt will ascend and descend at least 6 steps, platform nature if able, to allow safe home entrance, with use of RW and no more than superv assistance . Days to Meet Goals 5 Frequency of Treatment Frequency Of Treatment Once a Day Treatment Plan Physical Therapy Treatment Plan Bed Mobility Training,Transfer Training,Gait Training, Therapeutic Exercise,Balance Retraining,Discharge Planning Other Recommendations and Next Treatment Likely will need to push pt in Focus w/c to steps to try stair training, stair training, bed mobility, transfers and gait as much as possible to prepare for d/c Precautions Other Precautions Benefits of using RW at this time Weight Bearing Status Weight Bearing Status Weight Bear as Tolerated Recommendations To Nursing Amount of Assist Needed 1 Person Assist Discharge Recommendations PT Discharge Recommendations Home vs SNF Transportation Needs at Discharge Private Vehicle
--- NOTE | 2022-12-14 15:58 | PC.NURSE ---
Patient has denied pain thus far. She was given vicodin this morning and has worked with OT and PT. She will be discharged home tomorrow and practice stairs with therapy tomorrrow.
--- NOTE | 2022-12-14 19:09 | P.PN_ITS ---
Subjective Subjective Date Patient Seen: 12/14/22 Time Patient Seen: 08:00 Interval history: Her pain is improved. Exam Vital Signs (past 8 hours): - 12/14/22 15:00 Temperature 98.8 F Pulse Rate 71 Respiratory Rate 16 Blood Pressure 186/94 H Pulse Oximetry 93 Oxygen Delivery Method Room Air Oxygen Flow Rate 0 Narrative Exam Narrative: GEN: no acute distress CV: regular rate and rhythm PULM: clear bilaterally ABD: soft, nontender Objective Labs 12/13/22 15:00 12/13/22 15:00 COUNTS INCLUDE 234 BEDS AT THE [facility] Medical History Age-related osteoporosis without current pathological fracture (06/16/16) Basal cell carcinoma of skin of scalp and neck Contusion of thorax, unspecified, initial encounter (~11/06/19) Encounter for removal of sutures Laceration without foreign body of nose, initial encounter (~01/15/20) Laceration without foreign body of scalp, initial encounter (~07/06/19) Schizophrenia Skin lesions Surgical History Status post mastectomy Status post tonsillectomy Social History household members: spouse and family Smoking Status: Never smoker alcohol intake: never substance use type: does not use Assessment & Plan Assessment and plan (1) Multiple fractures of ribs: Qualifiers: Encounter type: initial encounter Fracture type: closed Laterality: l eft Qualified Code(s): S22.42XA - Multiple fractures of ribs, left side, initial encounter for closed fracture Status: Acute Plan: Incentive spirometry Pain medications as needed Physical therapy in the morning Fall precaution (2) Elevated BP without diagnosis of hypertension: Status: Acute Plan: Most likely due to pain. The patient does not have any history of high blood pressure. -Hydralazine as needed -Pain medications as needed (3) Urinary retention: Status: Acute Plan: Straight catheter as needed (4) Paranoid schizophrenia in remission: Status: Chronic Plan: Restart her home medications Time Spent With Patient Time with patient: 50 to 69 minutes with 50% spent counseling/coordinating care Quality VTE Deep Vein Thrombosis/Pulmonary Embolism Present on Admission: No
[2022-12-14] MEDS: HYDRALAZINE 20 MG/ML VIAL 10 MG IV (22:27)
[2022-12-15 01:36] VITALS: O2SAT 93
[2022-12-15 04:00] VITALS: BP 198/115; PULSE 71; RESP 16; TEMP 37.2; O2SAT 96
[2022-12-15 04:29] VITALS: BP 198/115; PULSE 71
[2022-12-15] MEDS: HYDRALAZINE 20 MG/ML VIAL 10 MG IV (04:29)
[2022-12-15 05:00] VITALS: BP 178/87; PULSE 85
[2022-12-15] MEDS: HYDROCODONE/ACET 5/325 TABLET 1 TAB PO ×2 (05:12→09:37)
[2022-12-15 07:30] VITALS: BP 170/111; PULSE 81; RESP 18; TEMP 36.5; O2SAT 93
[2022-12-15] MEDS: SERTRALINE 50 MG TABLET PO (08:46)
[2022-12-15] MEDS: SODIUM CHLORIDE 0.9% FLUSH 10 ML IV (08:46)
[2022-12-15] MEDS: ENOXAPARIN 40 MG/0.4 ML SYRINGE SUBCUT (08:46)
[2022-12-15] MEDS: DOCUSATE 100 MG CAPSULE PO (08:46)
--- NOTE | 2022-12-15 10:13 | PT.IPTN ---
Current Diagnoses Paranoid schizophrenia (12/13/22) Elevated blood-pressure reading, without diagnosis of hypertension (12/13/22) Retention of urine, unspecified (12/13/22) Multiple fractures of ribs, left side, initial encounter for closed fracture (12/13/22) Physical Therapy Treatment Note M2 PT-IP Current Condition Start: 12/14/22 14:44 Freq: NEEDED Status: Active Protocol: Document 12/14/22 14:20 MB (Rec: 12/14/22 14:58 MB [id number]) Physical Therapy Current Condition Current Condition Evaluation Date 12/14/22 Treatment Diagnosis Fall and left rib fractures, high pain Onset Date In the past couple of days M3 PT-IP Subjective Start: 12/14/22 14:44 Freq: NEEDED Status: Active Protocol: Document 12/15/22 10:38 TS (Rec: 12/15/22 11:01 TS [id number]) Subjective Physical Therapy Visit Type Type Treatment Note Visit Start Time 10:13 Visit Stop Time 10:36 Total Visit Minutes 23 Number of ELECTRIC LIFT TRUCK DRIVER Visits 1 Physical Therapy Visit Comments Patient Comments Pt found resting in bed, reports pain on L sided ribs, is currently on RA, agreeable to PT. Therapy Pain Assessment Pain When Pain Assessed During Mobility Pain Present Pain Present Pain Reported M4 PT-IP Mobility and Gait Start: 12/14/22 14:44 Freq: NEEDED Status: Active Protocol: Document 12/15/22 10:38 TS (Rec: 12/15/22 11:01 TS [id number]) PT-Bed Mobility Assessment Supine to Sit Supine to Sit Contact Guard Assistance,1 Person Assistance,Head of Bed Elevated Scooting Scooting to Edge of Bed Contact Guard Assistance PT-Transfer Assessment Sit to and From Stand Sit to and from Stand Standby Assistance,Use of Upper Extremities Equipment Transfer Assistive Device Gait Belt,Front Wheeled Walker Orthotic/Prosthetic Devices or Brace: No Comments Mobility Comments Spo2 prior to mobility 92% on RA. Supine to sit HOB elevated 30D CGA for supporting back to upright trunk, cues were provided for BUE support. She scooted to EOB CGA with BUE support, cues provided for feet flat on floor. Sit to stand with FWW SBA, pt has fair standing balance with no retroleaning. She ambulated ~ 100' SBA/CGA with FWW, she has a slow step thru gait with heavy UE support on FWW. Pt ambulated back to room for seated rest break on bed, SPo2 93% on RA, denied SOB. Sit to stand x1 SBA with FWW, pt ambulated to platform step in room. She performed steps x5 CGA with FWW, pt is slow/ cautious to step, has no buckling or LOB. Pt ambulated to chair, she was left in chair with all needs met. Gait Assessment Gait Gait Assistance Required: Standby Assistance,Contact Guard Assist,1 Person Assist Distance (Feet) 100 Able to Maintain Weight Bearing Status Yes During Gait Assistive Devices Assistive Device Gait Belt,Front Wheeled Walker Orthotic/Prosthetic Devices or Brace: No Gait Deviations General Gait Pattern Antalgic,Decreased Stride Length,Decreased Feet Clearance,Flexed Trunk Factors Limiting Gait Function Factors Limiting Gait Function Decreased Activity Tolerance, Decreased Strength,Difficulty Following Directions,Pain,Poor Balance,Poor Safety Awareness Comments Gait Comments See mobility comments. Stair Climbing Assessment Evaluation Level of Assist On Stairs Contact Guard Assistance,1 Person Assistance Devices Stair Climbing Assistive Devices Front Wheel Walker Technique/Endurance Stair Climbing Direction Ascend and Descend Stair Climbing Technique Step to Step Number of Steps Climbed 5 PT-Balance Assessment Sitting Balance and Reactions Static Sitting Balance Ability Good Dynamic Sitting Balance Ability Fair Standing Balance and Reactions Static Standing Balance Ability Fair Dynamic Standing Balance Ability Fair Device Used FWW M5 PT-IP Objective Assessments Start: 12/14/22 14:44 Freq: NEEDED Status: Active Protocol: Document 12/14/22 14:20 MB (Rec: 12/14/22 14:58 MB [id number]) Orientation Orientation/Cognition Level of Alertness Lethargic Language Function Ability Hard of Hearing Safety Awareness Decreased Safety Awareness Gross Range of Motion Upper Extremity ROM Impairments Defer to OT Lower Extremity ROM Assessment Within Functional Limits Strength Lower Extremity Strength Assessment Within Functional Limits M6 PT-IP Treatment Start: 12/14/22 14:44 Freq: NEEDED Status: Active Protocol: Document 12/15/22 10:38 TS (Rec: 12/15/22 11:01 TS [id number]) Physical Therapy Treatment Education Education Provided Safety M7 PT-IP Assessment and Plan Start: 12/14/22 14:44 Freq: NEEDED Status: Active Protocol: Document 12/15/22 10:38 TS (Rec: 12/15/22 11:01 TS [id number]) PT Summary Assessment and Plan Potential Rehabilitation Potential Fair Summary Impairments Pain,Balance,Coordination, Cognition,Bed Mobility, Transfers,Gait,Activity Tolerance Progress Towards Goals Progressing Toward Goals Assessment Summary Millie is making some progress with her mobility this session. She is CGA for supine to sit and scooting to EOB with BUE support. She performed sit to stand x2 SBA with FWW, standing balance is fair and has no retroleaning. She progressed her gait to ~ 100'SBA/CGA with FWW, had no buckling or LOB. She performed stairs x5 on platform CGA with FWW, again has no LOB. She generally has slow movement with all mobility and is cautious with her mobility . Her Spo2 remained in low 90' s throughout session on RA. PT is recommending Home 24/7 assist at this time w/HH. She has a spouse at home who currently assists her with some tasks and a brother. From other reports brother is currently recovering from a fall. Goals Bed Mobility Goal Independent Transfer Goal Independent,Front Wheeled Walker Gait Goal Independent,Front Wheel Walker Gait Distance 75 Other Goals Pt will ascend and descend at least 6 steps, platform nature if able, to allow safe home entrance, with use of RW and no more than superv assistance . Days to Meet Goals 5 Frequency of Treatment Frequency Of Treatment Once a Day Treatment Plan Physical Therapy Treatment Plan Bed Mobility Training,Transfer Training,Gait Training, Therapeutic Exercise,Balance Retraining,Discharge Planning Weight Bearing Status Weight Bearing Status Weight Bear as Tolerated Recommendations To Nursing Amount of Assist Needed 1 Person Assist Discharge Recommendations PT Discharge Recommendations Home with 24/7 Assist Available,Home Health Other Discharge Recommendations Pt has FWW at home. Transportation Needs at Discharge Private Vehicle
--- NOTE | 2022-12-15 15:09 | CM.DPNOTE ---
DCP Note Patient has been cleared by therapies for return home and is medically cleared, discharge order placed by Dr Urias. Met w/patient to review discharge plan, patient agreeable and requested priority board pass for the ferry to [facility] this evening, spouse will transport. Completed this request on the [facility] website. Requested [employer] [facility], alert Boogie ESQUEDA that patient is returning home to [place] today. Plan: Discharge home w/spouse via private auto, Boogie ESQUEDA, close outpatient follow up. EMBER
--- NOTE | 2022-12-15 21:35 | PM.DS.1 ---
History of Present Illness History of Present Illness Chief complaint: fell T-1/back pain Narrative: Per admitting physician: 82 years old female with history of schizophrenia, asthma, mild tardive dyskinesia presents to the ER after ground-level fall yesterday at home. The patient lost balance and fell hitting her left flank against the edge of dresser. Denies any loss of consciousness or head injury. Since then she has been complaining of left flank pain and acute urinary retention. Initially the pain was 8 out of 10, sharp, aggravated by movement. CT scan in the ER shows acute fracture of left 10, 11 and 12 ribs consistent with ecchymosis. No pneumothorax noted. Her blood pressure was significantly elevated in the ED and was given hydralazine and pain medications. Discharge Providers Provider Date of admission: 12/13/22 22:11 Discharge Date: 12/15/22 Primary care physician: Sintia Lombardi PA-C Consults: 12/13/22 22:23 Consult to Discharge Planning Routine Comment: Consult to Occupational Therapy Evaluate & Treat Comment: Physician Instructions: Evaluate and treat Consult to Physical Therapy Evaluate & Treat Comment: Physician Instructions: Evaluate and Treat Discharge provider: Corbin Urias MD Summary Hospital Course Discharge Diagnosis: 1. Multiple rib fractures 2. Urinary retention, resolved 3. Paranoid schizophrenia Hospital Course: Ms. Romano was admitted after a fall. She had multiple rib fractures. She was given pain control and incentive spirometry and she felt well. She worked with PT and was recommended for home. She was discharged home with home health and IS device and encouraged to follow closely with her PCP. Exam Vital Signs (past 8 hours): Oxygen Delivery Method Room Air Oxygen Flow Rate 1 Narrative Exam Narrative: GEN: no acute distress CV: regular rate and rhythm PULM: clear bilaterally ABD: soft, nontender Objective Labs 12/13/22 15:00 12/13/22 15:00 [facility] Medical History Age-related osteoporosis without current pathological fracture (06/16/16) Basal cell carcinoma of skin of scalp and neck Contusion of thorax, unspecified, initial encounter (~11/06/19) Encounter for removal of sutures Laceration without foreign body of nose, initial encounter (~01/15/20) Laceration without foreign body of scalp, initial encounter (~07/06/19) Schizophrenia Skin lesions Surgical History Status post mastectomy Status post tonsillectomy Social History household members: spouse and family Smoking Status: Never smoker alcohol intake: never substance use type: does not use Discharge Plan Discharge Plan Patient Disposition: Home Health Service Provider Discharge Comment: Ms. Romano came in with a fall and had rib fractures. She improved with pain medications which she should continue to take to control her pain. She should breath into the incentive spirometry as this will help lower the chance of getting a pneumonia after her recent injury. She should follow up with her PCP within one to two weeks.. Discharge orders & Medications Prescriptions: New docusate sodium 100 mg Capsule 100 mg PO BID Qty: 30 0RF hydrocodone-acetaminophen 5-325 mg Tablet 1 tab PO Q4H PRN (Reason: Pain, Moderate (4-6)) Qty: 24 0RF Continued sertraline 50 mg tablet 50 mg PO DAILY lurasidone [Latuda] 80 mg Tablet 80 mg PO QPM Rx Instructions: must administer with food (at least 350 calories) Follow up/Referrals: Sintia Lombardi PA-C [Primary Care Provider] - 2 Weeks (hospitalized for fall and rib fractures) Diet/Activity/Treatments Diet: Regular Visit Report/Discharge Packet Instructions: DI for Rib Fracture, DI for Prescription Opioid Use, Stool Softeners Stand Alone Forms: Patient Portal/API, Stroke Signs & Symptoms Discharge Data Primary Care Provider: Sintia Lombardi Attending Provider: Steven Esparza Admit Date/Time: 12/13/22 22:11 Discharges patient from system. Discharge Date/Time: 12/15/22 17:41 Quality VTE Deep Vein Thrombosis/Pulmonary Embolism Present on Admission: No
== END 2022-12-15 17:41 | disposition home health service (06) ==
LOC: ED 21:49 → AC 22:11
PROVIDERS: Emergency Medicine; Admitting Provider Internal Medicine; Emergency Provider Emergency Medicine; PCP Physician Assistant; Referring Provider Emergency Medicine; Visit Provider Internal Medicine
DX: S22.42XA Multiple fractures of ribs, left side, initial encounter for closed fracture (principal); R03.0 Elevated blood-pressure reading, without diagnosis of hypertension; R33.9 Retention of urine, unspecified; F20.0 Paranoid schizophrenia; W18.39XA Other fall on same level, initial encounter; Z91.89 Other specified personal risk factors, not elsewhere classified
CPT/HCPCS: 36415; 74177; 80053; 81001; 83690; 85025; 85610; 93005; 93010; 96361; 96372; 96374; 96375; 96376; 97116; 97161; 97166; 97530; 97535; 99285; G0378; J0360; J1170; J1650; J1885; Q9967

== ENCOUNTER → 2023-05-05 13:04 | Outpatient (CLI) | payer MEDICARE, SELFPAY ==
[2022-12-13 22:27] VITALS: BMI 23.4
[2023-05-05 19:14] LABS: Add Manual Diff / Slide Review NO; Basophils Absolute Auto 0 /uL (0-100); Basophils Percent Auto 0.4 % (0-2); Eosinophils Absolute Auto 100 /uL (0-450); Eosinophils Percent Auto 1.2 % (2-4); Hematocrit 44.1 % (36-46); Hemoglobin 14.9 g/dL (12.0-16.0); Lymphocytes Absolute Auto 900 /uL (1100-4500); Lymphocytes Percent Auto 17.7 % (25-40); Mean Corpuscular HGB Conc 33.8 % (30-36); Mean Corpuscular Hemoglobin 32.8 PG (26-34); Mean Corpuscular Volume 96.9 fL (80-100); Monocytes Absolute Auto 500 /uL (0-900); Monocytes Percent Auto 10.1 % (3-14); Neutrophils Absolute Auto 3700 /uL (1500-7000); Neutrophils Percent Auto 70.6 % (50-75); Platelet Count 217 X10^3/uL (150-400); Red Blood Cell Count 4.55 X10^6/uL (4.0-5.2); Red Cell Distribution Width 13.8 % (11.6-14.8); White Blood Cell Count 5.2 X10^3/uL (4.5-11.0)
[2023-05-05 19:24] LABS: Alanine Aminotransferase 16 IU/L (<35); Albumin Globulin Ratio 1.4 (1.0-2.8); Alkaline Phosphatase 91 U/L (38-126); Aspartate Aminotransferase 24 IU/L (14-36); BUN Creatinine Ratio 18.5 (6-22); Bilirubin Total 0.8 mg/dL (0.2-1.3); Blood Urea Nitrogen 22 mg/dL (7-17); Calcium 10.3 mg/dL (8.4-10.2); Carbon Dioxide 30 mmol/L (22-32); Chloride 105 mmol/L (98-107); Estimated Glomerular Filt Rate 46 mL/min (>60); Globulin 2.9 g/dL (1.7-4.1); Glucose 95 mg/dL (80-110); HEMOLYSIS < 15 (0-50); Potassium 3.8 mmol/L (3.4-5.1); Sodium 139 mmol/L (137-145); Total Protein 6.9 g/dL (6.3-8.2)
[2023-05-05 20:13] LABS: Vitamin B12 Reflex MMA if <400 500 pg/mL (239-931)
[2023-05-05 20:19] LABS: Vitamin D 25 Hydroxy (D3) 59.6 ng/mL (30.0-100.0)
[2023-05-05 20:28] LABS: TSH w/ Reflex to FT4 1.91 uIU/mL (0.47-4.68)
[2023-05-08 08:38] LABS: Calcium 10.1 mg/dL (8.7-10.3); Parathyroid Hormone, Intact 92 pg/mL (15-65)
== END ==
PROVIDERS: PCP Family Medicine; Visit Provider Family Medicine
DX: G24.01 Drug induced subacute dyskinesia (principal); E83.52 Hypercalcemia; I10 Essential (primary) hypertension; R32 Unspecified urinary incontinence; H93.8X2 Other specified disorders of left ear; R29.898 Other symptoms and signs involving the musculoskeletal system; R26.89 Other abnormalities of gait and mobility; E34.9 Endocrine disorder, unspecified
CPT/HCPCS: 80053; 82306; 82310; 82607; 83970; 84443; 85025

== ENCOUNTER → 2023-05-09 11:18 | Outpatient (CLI) | payer MEDICARE, SELFPAY ==
[2022-12-13 22:27] VITALS: BMI 23.4
--- NOTE | 2023-05-09 11:19 | DI.US.S_ITS ---
PROCEDURE: US THYROID INDICATIONS: HTN, high PTH and calcium TECHNIQUE: Real-time scanning was performed of the thyroid gland, with image documentation. COMPARISON: [facility], CT, CT CERVICAL SPINE WO CON, 01/10/2020, 9:17. FINDINGS: Thyroid: Right lobe measures 3.7 x 1.7 x 1.6 cm. Left lobe measures 3.1 x 1.4 x 1.3 cm. Isthmus is 0.3 cm thick. Echotexture is homogeneous. Nodule number: 1 Location: Right inferior Size: 0.9 x 0.5 x 0.5 cm. Composition: Solid Echogenicity: Hypoechoic Shape: wider than tall. Margins: Smooth Echogenic foci: None Total points: 4 ACR TI-RADS category: TR 4, moderately suspicious No convincing parathyroid adenoma. IMPRESSION: No convincing parathyroid nodule. Small right inferior thyroid nodule measuring 0.9 cm. TR 4, moderately suspicious. Follow-up thyroid ultrasound could be considered. ACR TI-RADS definitions and recommendations: TI-RADS 1 (benign): 0 points. FNA not needed. TI-RADS 2 (not suspicious): 2 points. FNA not needed. TI-RADS 3 (mildly suspicious): 3 points. * FNA if 2.5 cm or larger, follow up if 1.5 cm or larger (at 1, 3, and 5 years). TI-RADS 4 (moderately suspicious): 4-6 points. * FNA if 1.5 cm or larger, follow up if 1 cm or larger (at 1, 2, 3, and 5 years). TI-RADS 5 (highly suspicious): 7 points or more. * FNA if 1 cm or larger, follow up if 0.5 cm or larger (every year for 5 years). Dictated by: Anthony Castaneda M.D. on 05/09/2023 at 14:04 Approved by: Anthony Castaneda M.D. on 05/09/2023 at 14:11
--- NOTE | 2023-05-09 11:19 | DI.CT.S_ITS ---
PROCEDURE: CT HEAD/BRAIN WO/W CON INDICATIONS: worsening balance, incontinence, worsening tinnitus left ear TECHNIQUE: 4.5 mm thick angled axial sections acquired from the foramen magnum to the vertex both before and after the administration of intravenous contrast, with coronal and sagittal reformats. For radiation dose reduction, the following was used: automated exposure control, adjustment of mA and/or kV according to patient size. COMPARISON: [facility], CT, CT HEAD WITHOUT CONTRAST, 12/17/2020, 14:33. [facility], CT, CT HEAD/BRAIN WO CON, 01/10/2020, 9:17. FINDINGS: Image quality: Excellent. CSF spaces: Basal cisterns are patent. No extra-axial fluid collections. Ventricles are symmetric in size and shape. Brain: No midline shift. No intracranial bleeds or masses. No abnormal intracranial enhancement. There is cerebral volume loss for age. There is periventricular white matter chronic small vessel ischemic change. There is intracranial internal carotid artery atherosclerosis. Skull and face: Calvarium and visualized facial bones appear intact, without suspicious lesions. Sinuses: Visualized sinuses and mastoids are clear. IMPRESSION: 1. No acute intracranial process. 2. Moderate atrophy and chronic microvascular ischemic changes. Dictated by: Lola Hirsch M.D. on 05/09/2023 at 13:08 Approved by: Lola Hirsch M.D. on 05/09/2023 at 13:09
== END ==
LOC: CT 11:19
PROVIDERS: PCP Family Medicine; Referring Provider Family Medicine; Visit Provider Family Medicine
DX: I65.29 Occlusion and stenosis of unspecified carotid artery (principal); E04.1 Nontoxic single thyroid nodule; R29.898 Other symptoms and signs involving the musculoskeletal system; H93.8X2 Other specified disorders of left ear; R26.89 Other abnormalities of gait and mobility; R32 Unspecified urinary incontinence; I10 Essential (primary) hypertension; G24.01 Drug induced subacute dyskinesia; R29.90 Unspecified symptoms and signs involving the nervous system; E34.9 Endocrine disorder, unspecified; E83.52 Hypercalcemia
CPT/HCPCS: 70470; 76536; Q9967

== ENCOUNTER → 2023-06-21 11:56 | Outpatient (CLI) | payer MEDICARE, SELFPAY ==
[2022-12-13 22:27] VITALS: BMI 23.4
[2023-06-21 20:12] LABS: BUN Creatinine Ratio 24.6 (6-22); Blood Urea Nitrogen 28 mg/dL (7-17); Calcium 10.5 mg/dL (8.4-10.2); Carbon Dioxide 28 mmol/L (22-32); Chloride 107 mmol/L (98-107); Estimated Glomerular Filt Rate 48 mL/min (>60); Glucose 88 mg/dL (80-110); HEMOLYSIS 23 (0-50); Potassium 3.8 mmol/L (3.4-5.1); Sodium 141 mmol/L (137-145)
[2023-06-23 16:32] LABS: Free Kappa Lt Chains, Serum 27.2 mg/L (3.3-19.4); Free Lambda Lt Chains,Serum 24.6 mg/L (5.7-26.3)
[2023-06-24 15:06] LABS: Albumin 3.7 g/dL (2.9-4.4); Alpha-1-Globulin 0.3 g/dL (0.0-0.4); Alpha-2-Globulin 0.7 g/dL (0.4-1.0); Globulin Total 2.9 g/dL (2.2-3.9); Protein, Total 6.6 g/dL (6.0-8.5)
== END ==
PROVIDERS: PCP Family Medicine; Visit Provider Family Medicine
DX: E83.52 Hypercalcemia (principal)
CPT/HCPCS: 80048; 83883; 84155; 84165

== ENCOUNTER → 2023-08-09 15:53 | Outpatient (CLI) | payer MEDICARE, SELFPAY ==
[2022-12-13 22:27] VITALS: BMI 23.4
== END ==
PROVIDERS: PCP Family Medicine; Visit Provider Physician Assistant Medical
DX: R82.90 Unspecified abnormal findings in urine (principal)
CPT/HCPCS: 87086

== ENCOUNTER → 2023-11-03 11:17 | Outpatient (CLI) | payer MEDICARE, SELFPAY ==
[2022-12-13 22:27] VITALS: BMI 23.4
[2023-11-03 20:44] LABS: Add Manual Diff / Slide Review NO; Basophils Absolute Auto 0 /uL (0-100); Basophils Percent Auto 0.2 % (0-2); Eosinophils Absolute Auto 0 /uL (0-450); Eosinophils Percent Auto 0.5 % (2-4); Hemoglobin 14.2 g/dL (12.0-16.0); Lymphocytes Absolute Auto 800 /uL (1100-4500); Lymphocytes Percent Auto 17.5 % (25-40); Mean Corpuscular HGB Conc 34.6 % (30-36); Mean Corpuscular Volume 98.2 fL (80-100); Monocytes Absolute Auto 400 /uL (0-900); Neutrophils Absolute Auto 3200 /uL (1500-7000); Neutrophils Percent Auto 71.8 % (50-75); Platelet Count 198 X10^3/uL (150-400); Red Blood Cell Count 4.18 X10^6/uL (4.0-5.2); White Blood Cell Count 4.5 X10^3/uL (4.5-11.0)
[2023-11-03 20:51] LABS: Alanine Aminotransferase 15 IU/L (<35); Albumin 3.8 g/dL (3.5-5.0); Albumin Globulin Ratio 1.4 (1.0-2.8); Alkaline Phosphatase 62 U/L (38-126); Aspartate Aminotransferase 29 IU/L (14-36); BUN Creatinine Ratio 17.5 (6-22); Bilirubin Total 0.7 mg/dL (0.2-1.3); Blood Urea Nitrogen 21 mg/dL (7-17); Carbon Dioxide 28 mmol/L (22-32); Chloride 104 mmol/L (98-107); Estimated Glomerular Filt Rate 45 mL/min (>60); Globulin 2.8 g/dL (1.7-4.1); Glucose 78 mg/dL (80-110); HEMOLYSIS 44 (0-50); Potassium 4.6 mmol/L (3.4-5.1); Sodium 136 mmol/L (137-145); Total Protein 6.6 g/dL (6.3-8.2)
== END ==
PROVIDERS: PCP Family Medicine; Visit Provider Family Medicine
DX: E21.3 Hyperparathyroidism, unspecified (principal); R94.4 Abnormal results of kidney function studies; I10 Essential (primary) hypertension
CPT/HCPCS: 80053; 82310; 83970; 85025

== ENCOUNTER → 2024-05-03 13:08 | Outpatient (CLI) | payer MEDICARE, SELFPAY ==
[2022-12-13 22:27] VITALS: BMI 23.4
[2024-05-03 19:25] LABS: Alanine Aminotransferase 10 IU/L (<35); Albumin 4.1 g/dL (3.5-5.0); Albumin Globulin Ratio 1.6 (1.0-2.8); Alkaline Phosphatase 70 U/L (38-126); Aspartate Aminotransferase 27 IU/L (14-36); BUN Creatinine Ratio 19.2 (6-22); Bilirubin Total 0.7 mg/dL (0.2-1.3); Blood Urea Nitrogen 20 mg/dL (7-17); Calcium 10.1 mg/dL (8.4-10.2); Carbon Dioxide 26 mmol/L (22-32); Chloride 102 mmol/L (98-107); Estimated Glomerular Filt Rate 53 mL/min (>60); Globulin 2.6 g/dL (1.7-4.1); Glucose 90 mg/dL (80-110); HEMOLYSIS 37 (0-50); Potassium 4.3 mmol/L (3.4-5.1); Sodium 137 mmol/L (137-145); Total Protein 6.7 g/dL (6.3-8.2)
[2024-05-03 19:26] LABS: Add Manual Diff / Slide Review NO; Basophils Absolute Auto 0 /uL (0-100); Basophils Percent Auto 0.3 % (0-2); Eosinophils Absolute Auto 0 /uL (0-450); Eosinophils Percent Auto 0.6 % (2-4); Hematocrit 43.6 % (36-46); Hemoglobin 14.6 g/dL (12.0-16.0); Lymphocytes Absolute Auto 1200 /uL (1100-4500); Lymphocytes Percent Auto 20.5 % (25-40); Mean Corpuscular HGB Conc 33.5 % (30-36); Mean Corpuscular Hemoglobin 32.7 PG (26-34); Mean Corpuscular Volume 97.6 fL (80-100); Monocytes Absolute Auto 700 /uL (0-900); Monocytes Percent Auto 11.1 % (3-14); Neutrophils Absolute Auto 4000 /uL (1500-7000); Neutrophils Percent Auto 67.5 % (50-75); Platelet Count 237 X10^3/uL (150-400); Red Blood Cell Count 4.47 X10^6/uL (4.0-5.2); Red Cell Distribution Width 13.1 % (11.6-14.8); White Blood Cell Count 5.9 X10^3/uL (4.5-11.0)
[2024-05-03 19:54] LABS: Thyroid Stimulating Hormone 1.73 uIU/mL (0.47-4.68)
[2024-05-06 10:12] LABS: Calcium 10.2 mg/dL (8.7-10.3); Parathyroid Hormone, Intact 110 pg/mL (15-65)
== END ==
PROVIDERS: PCP Family Medicine; Visit Provider Family Medicine
DX: I50.9 Heart failure, unspecified (principal); N18.30 Chronic kidney disease, stage 3 unspecified; E21.3 Hyperparathyroidism, unspecified
CPT/HCPCS: 80053; 82310; 83970; 84443; 85025